=== PATIENT | female | born 1965 | race Caucasian/White ===

== ENCOUNTER → 2016-12-13 | Day surgery (SDC) | payer BC ==
[~2016-12-13] MED LIST: ATOR20TA58 PO; DULO20CA PO; GLYB5TAB3 PO; HYDROmorphone 2 MG/ML VIAL IV PRN; IV RINGERS,LACTATED 1000ML 1,000 ML IV SCH; LIDOCAINE 1% 1 ML SYRINGE. ID PRN; LIDOCAINE 2% PF Vial for OR 5 ML VIAL. ONE; METF500T4 PO; MORPHINE SULFATE 2 MG/ML DISP.SYRIN. IV PRN; ONDANSETRON PF 4 MG/2 ML VIAL. IV PRN; OXCA150T3 PO; PROAIR HFA8.5 GM INH; PROCHLORPERAZINE 10 MG/2 ML VIAL. IV PRN; PROPOFOL 20 ML IV ONE; TRAZ300T2 PO; fentaNYL PF VIAL 100 MCG/2 ML VIAL IV PRN
[2016-12-13 09:10] VITALS: BP 120/75
--- NOTE | 2016-12-13 23:34 | CONS ---
DATE OF CONSULTATION: 12/13/2016 REFERRING PHYSICIAN: ____. HISTORY OF PRESENT ILLNESS: This is a 50-year-old female with past medical history significant for hyperlipidemia, diabetes, bipolar disorder, seen for screening colon exam. Bowel habits are regular without diarrhea or constipation. There has been no melena and/or hematochezia. FAMILY HISTORY: Unrevealing for colon polyps or colon cancer and she has not undergone previous colonoscopy and she is without additional complaints. PAST MEDICAL HISTORY: Diabetes, hyperlipidemia, and bipolar disorder. PAST SURGICAL HISTORY: Status post cholecystectomy, tonsillectomy, tubal ligation, ankle fracture. ALLERGIES: ERYTHROMYCIN. MEDICATIONS: Include albuterol, atorvastatin, Cymbalta, glyburide, metformin, Trileptal and trazodone. SOCIAL HISTORY: She is a social drinker, nonsmoker. FAMILY HISTORY: Significant for breast cancer with the paternal aunt, ____, diabetes with her father. REVIEW OF SYSTEMS: Per records. PHYSICAL EXAMINATION: GENERAL: Reveals a well-nourished, well-developed female. VITAL SIGNS: Temperature is 97, pulse 78, respirations 20. HEENT: Normocephalic and atraumatic head. Pupils and extraocular muscles not tested. Sclerae anicteric. NECK: Supple. LUNGS: Clear. CARDIOVASCULAR: Reveals S1, S2 without S3, S4 or appreciable murmur. ABDOMEN: Reveal soft abdomen, normal bowel sounds, without appreciable hepatosplenomegaly. EXTREMITIES: Reveals no cyanosis, clubbing or edema. IMPRESSION: Colorectal screening is warranted at this time. Risks and benefits of procedure including risk of perforation have been discussed. The patient is willing to proceed at this time. I would like to thank Dr. Chaney for allowing us to consult and participate in this patient's care. KADI CAIN MD DR: CATHI/leandro JOB#: [id number] / [id number]
== END | disposition home or self-care (01) ==
LOC: ENDOS 07:19
PROVIDERS: ATTEND Internal Medicine Gastroenterology
DX: Z12.11 Encounter for screening for malignant neoplasm of colon (principal); K64.0 First degree hemorrhoids; E11.9 Type 2 diabetes mellitus without complications; Z90.49 Acquired absence of other specified parts of digestive tract; Z98.51 Tubal ligation status; Z86.39 Personal history of other endocrine, nutritional and metabolic disease; Z88.1 Allergy status to other antibiotic agents
CPT/HCPCS: 45378; 82962; J2704

== ENCOUNTER 2017-03-27 12:47 | Emergency (ER) | payer BC ==
[~2017-03-27] VITALS: Ht 152.4 cm; Wt 113.4 kg
[~2017-03-27 12:47] MED LIST changes: -HYDROmorphone 2 MG/ML VIAL IV PRN; -IV RINGERS,LACTATED 1000ML 1,000 ML IV SCH; -LIDOCAINE 1% 1 ML SYRINGE. ID PRN; -LIDOCAINE 2% PF Vial for OR 5 ML VIAL. ONE; -MORPHINE SULFATE 2 MG/ML DISP.SYRIN. IV PRN; -ONDANSETRON PF 4 MG/2 ML VIAL. IV PRN; -PROCHLORPERAZINE 10 MG/2 ML VIAL. IV PRN; -PROPOFOL 20 ML IV ONE; -fentaNYL PF VIAL 100 MCG/2 ML VIAL IV PRN
--- NOTE | 2017-03-27 13:50 | EKG ---
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
[2017-03-27 13:55] LABS: BASO # 0.1 x10^3/uL (0.0-0.2); BASO % 1 % (0-3); EOS % 3 % (0-3); HEMATOCRIT 36.7 % (36.0-47.0); HEMOGLOBIN 12.2 g/dL (12.0-15.5); LYMPH # 4.3 x10^3/uL (1.0-4.8); LYMPH % 45 % (24-48); MEAN CORPUSCULAR HEMOGLOBIN 33 pg (25-35); MEAN CORPUSCULAR HGB CONC 33 g/dL (31-37); MEAN CORPUSCULAR VOLUME 99 fL (79-100); MONO % 5 % (0-9); NEUT % 47 % (31-73); PLATELET COUNT 282 x10^3/uL (140-400); RED BLOOD COUNT 3.72 x10^6/uL (3.50-5.40); RED CELL DISTRIBUTION WIDTH 13.6 % (11.5-14.5); WHITE BLOOD COUNT 9.4 x10^3/uL (4.0-11.0)
[2017-03-27 14:00] LABS: CALCIUM 8.8 mg/dL (8.5-10.1); CREATININE 0.8 mg/dL (0.6-1.0); GFR 75.6; POTASSIUM 3.9 mmol/L (3.5-5.1)
--- NOTE | 2017-03-27 14:04 | RAD ---
EXAM: Chest 2 views. HISTORY: Dyspnea and dizziness. COMPARISON: None. FINDINGS: Frontal and lateral views of the chest are obtained. There are no confluent infiltrates. There is no pneumothorax or pleural effusion. The heart is not enlarged. Cholecystectomy clips are noted. IMPRESSION: 1. No confluent infiltrates.
[2017-03-27] MEDS ORDERED: ALBUTEROL SULFATE 2.5 MG/3 ML NEBU. NEB ONE (14:45)
[2017-03-27] MEDS ORDERED: IV NORMAL SALINE 1000ML BAG 1,000 ML IV ONE (14:45)
--- NOTE | 2017-03-27 14:50 | PHYS DOC ---
Past Medical History Past Medical History: Asthma, Bipolar, Diabetes-Type II, Glaucoma, Hypertension , Other Additional Past Medical Histor: GASTROPARESIS Past Surgical History: Cholecystectomy, Tubal ligation, Other Additional Past Surgical Histo: CRYO SURG,D&C,THERMOABLATION Alcohol Use: None Drug Use: None Adult General Chief Complaint Chief Complaint: SHORTNESS OF BREATH [facility] HPI Patient is a 51 year old female presents with complaints of chest heaviness, shortness of air, dizziness that has been going on for a couple weeks. The chest heaviness is described as being diffuse and does not radiate. It hasn't been any nausea, diaphoresis, vomiting, abdominal pain, neck pain, back pain associated with it. No sick contacts, no recent travel. No fevers, no chills, no rashes. Patient denies any swelling of her legs or new pain in her legs. Coug , occasional and nonproductive Review of Systems Review of Systems Constitutional: Denies fever or chills [] HENT: Denies nasal congestion or sore throat [] Respiratory: Yes cough or shortness of breath [] Cardiovascular: No additional information not addressed in HPI [] GI: Denies abdominal pain, nausea, vomiting, bloody stools or diarrhea [] : Denies dysuria or hematuria [] Musculoskeletal: Denies back pain or joint pain [] Integument: Denies rash or skin lesions [] Neurologic: Denies headache, focal weakness or sensory changes [] All systems reviewed and found to be negative unless otherwise stated Current Medications Current Medications Current Medications Medications (Trade) Dose Ordered Sig/Karol Start Time Stop Time Status Last Admin Dose Admin Albuterol Sulfate (Ventolin Neb Soln) 2.5 mg 1X ONCE 03/27/17 14:45 03/27/17 14:46 DC 03/27/17 15:02 2.5 MG Sodium Chloride 1,000 ml @ 1,000 mls/hr 1X ONCE 03/27/17 14:45 03/27/17 15:44 03/27/17 15:08 1,000 MLS/HR Allergies Allergies Allergies Coded Allergies Type Severity Reaction Last Updated Verified erythromycin base Allergy Intermediate 12/13/16 No Physical Exam Physical Exam Constitutional: Well developed, well nourished, no acute distress, non-toxic appearance. [] HENT: Normocephalic, atraumatic,, oropharynx dry, no oral exudates, nose normal. [] Eyes: EOMI, conjunctiva normal, no discharge. [] Neck: Normal range of motion, no tenderness, supple, no stridor. No JVD Cardiovascular:Heart rate regular rhythm, no murmur, equal pulses, normal perfusion Lungs & Thorax: Bilateral breath sounds clear to auscultation, no tachypnea Abdomen: Bowel sounds normal, soft, no tenderness, no masses, no pulsatile masses. [] Skin: Warm, dry, no erythema, no rash. [] Back: No tenderness, no CVA tenderness. [] Extremities: No tenderness, no cyanosis, no clubbing, ROM intact, no edema. No clinical signs of DVT Neurologic: Alert and oriented X 3, normal motor function, no focal deficits noted. [] Psychologic: Affect normal, judgement normal, mood normal. [] Current Patient Data Vital Signs Vital Signs Date Time Temp Pulse Resp B/P (MAP) Pulse Ox O2 Delivery O2 Flow Rate FiO2 03/27/17 15:05 73 24 146/67 (93) 100 03/27/17 15:03 Room Air 03/27/17 12:55 98.1 98.1 Lab Values Laboratory Tests Test 03/27/17 13:04 03/27/17 13:05 Glucose (Fingerstick) 314 mg/dL (70-99) H White Blood Count 9.4 x10^3/uL (4.0-11.0) Red Blood Count 3.72 x10^6/uL (3.50-5.40) Hemoglobin 12.2 g/dL (12.0-15.5) Hematocrit 36.7 % (36.0-47.0) Mean Corpuscular Volume 99 fL (79-100) Mean Corpuscular Hemoglobin 33 pg (25-35) Mean Corpuscular Hemoglobin Concent 33 g/dL (31-37) Red Cell Distribution Width 13.6 % (11.5-14.5) Platelet Count 282 x10^3/uL (140-400) Neutrophils (%) (Auto) 47 % (31-73) Lymphocytes (%) (Auto) 45 % (24-48) Monocytes (%) (Auto) 5 % (0-9) Eosinophils (%) (Auto) 3 % (0-3) Basophils (%) (Auto) 1 % (0-3) Neutrophils # (Auto) 4.4 x10^3uL (1.8-7.7) Lymphocytes # (Auto) 4.3 x10^3/uL (1.0-4.8) Monocytes # (Auto) 0.4 x10^3/uL (0.0-1.1) Eosinophils # (Auto) 0.3 x10^3/uL (0.0-0.7) Basophils # (Auto) 0.1 x10^3/uL (0.0-0.2) D-Dimer (Veronica) < 0.27 ug/mlFEU Sodium Level 138 mmol/L (136-145) Potassium Level 3.9 mmol/L (3.5-5.1) Chloride Level 101 mmol/L (98-107) Carbon Dioxide Level 28 mmol/L (21-32) Anion Gap 9 (6-14) Blood Urea Nitrogen 11 mg/dL (7-20) Creatinine 0.8 mg/dL (0.6-1.0) Estimated GFR (Cockcroft-Gault) 75.6 Glucose Level 316 mg/dL (70-99) H Calcium Level 8.8 mg/dL (8.5-10.1) Troponin I Quantitative < 0.017 ng/mL (0.000-0.055) Laboratory Tests 03/27/17 13:05 Laboratory Tests 03/27/17 13:05 EKG EKG 1304 sinus rhythm, 75, no STEMI[] Radiology/Procedures Radiology/Procedures no acute findings[] Course & Med Decision Making Course & Med Decision Making Pertinent Labs and Imaging studies reviewed. (See chart for details) 1450 patient and room in no distress, sleeping comfortably, no tachypnea [] Dragon Disclaimer Dragon Disclaimer This electronic medical record was generated, in whole or in part, using a voice recognition dictation system. Departure Departure Impression: Primary Impression: Dizziness Additional Impressions: Dehydration Hyperglycemia Nonspecific chest pain Disposition: HOME, SELF-CARE Condition: IMPROVED Referrals: ELEAZAR LEO MD (PCP) Please follow-up with your PCP in 2 days for recheck and reevaluation and discuss possible need for adjustment of to her diabetes medication as well as further testing. Patient Instructions: Chest Pain (Nonspecific), Hqeg-[id number], Dehydration, Adult, Ceta-ep-Ttfv, Dizziness, Gsad-mm-Kbos, Hyperglycemia, Hqju-ce-Dzqd Problem Qualifiers Robert BUTTERFIELD MD Mar 27, 2017 14:50
[2017-03-27 16:22] VITALS: BP 153/74
== END 2017-03-27 16:22 | disposition home or self-care (01) ==
LOC: ER 12:47
DX: E86.0 Dehydration (principal); R07.89 Other chest pain; E11.65 Type 2 diabetes mellitus with hyperglycemia; E11.39 Type 2 diabetes mellitus with other diabetic ophthalmic complication; H40.9 Unspecified glaucoma; I10 Essential (primary) hypertension; J45.909 Unspecified asthma, uncomplicated; F31.9 Bipolar disorder, unspecified; Z88.1 Allergy status to other antibiotic agents
CPT/HCPCS: 36415; 71020; 80048; 82962; 84484; 85025; 85379; 93005; 94250; 94640; 96360; 99285; J7030; J7613

== ENCOUNTER → 2018-01-16 | Outpatient (CLI) | payer BC | END | disposition home or self-care (01) | LOC: KCIC MRI 09:00 | DX: G31.84 Mild cognitive impairment of uncertain or unknown etiology (principal); I10 Essential (primary) hypertension; E11.9 Type 2 diabetes mellitus without complications; Z86.39 Personal history of other endocrine, nutritional and metabolic disease; Z90.49 Acquired absence of other specified parts of digestive tract | CPT/HCPCS: 70551 ==

== ENCOUNTER 2018-03-17 16:21 | Emergency (ER) | payer BC ==
[~2018-03-17] VITALS: Ht 152.4 cm; Wt 117.0 kg
[~2018-03-17 16:21] MED LIST changes: +METF500T16 PO; -METF500T4 PO
[2018-03-17 16:37] VITALS: BP 174/87
[2018-03-17 17:15] LABS: BASO # 0.1 x10^3/uL (0.0-0.2); BASO % 1 % (0-3); EOS # 0.3 x10^3/uL (0.0-0.7); EOS % 3 % (0-3); HEMOGLOBIN 13.6 g/dL (12.0-15.5); LYMPH # 4.2 x10^3/uL (1.0-4.8); LYMPH % 46 % (24-48); MEAN CORPUSCULAR HEMOGLOBIN 33 pg (25-35); MEAN CORPUSCULAR HGB CONC 34 g/dL (31-37); MEAN CORPUSCULAR VOLUME 95 fL (79-100); MONO # 0.6 x10^3/uL (0.0-1.1); MONO % 7 % (0-9); NEUT % 44 % (31-73); PLATELET COUNT 304 x10^3/uL (140-400); RED BLOOD COUNT 4.19 x10^6/uL (3.50-5.40); RED CELL DISTRIBUTION WIDTH 13.8 % (11.5-14.5); WHITE BLOOD COUNT 9.1 x10^3/uL (4.0-11.0)
[2018-03-17] MEDS ORDERED: IV NORMAL SALINE 1000ML BAG 1,000 ML IV ONE ×2 (17:15→18:00)
[2018-03-17 17:40] LABS: CALCIUM 9.2 mg/dL (8.5-10.1); CREATININE 0.8 mg/dL (0.6-1.0); GFR 75.3
[2018-03-17 17:46] LABS: ALBUMIN 3.6 g/dL (3.4-5.0); ALBUMIN/GLOBULIN RATIO 0.9 (1.0-1.7); TOTAL BILIRUBIN 0.2 mg/dL (0.2-1.0); TOTAL PROTEIN 7.8 g/dL (6.4-8.2)
[2018-03-17] MEDS ORDERED: INSULIN REGULAR 100 UNIT/ML 3ML VIAL. IV ONE (18:00)
[2018-03-17] MEDS ORDERED: ONDANSETRON PF 4 MG/2 ML VIAL. IV ONE (18:15)
--- NOTE | 2018-03-17 19:13 | PHYS DOC ---
Past Medical History Past Medical History: Asthma, Bipolar, Diabetes-Type II, Glaucoma, Hypertension , Other Additional Past Medical Histor: GASTROPARESIS, SLEEP APNEA Past Surgical History: Cholecystectomy, Tonsillectomy, Tubal ligation, Other Additional Past Surgical Histo: CRYO SURG,D&C,THERMOABLATION Alcohol Use: None Drug Use: None Adult General Chief Complaint Chief Complaint: HYPERGLYCEMIA HPI HPI Patient is a 52 year old female who presents with hyperglycemia. The patient states that she has also had some confusion and memory issues. The patient has been seen by Dr. Siddiqui for neurology. The patient does have a history of bipolar disorder as well. The patient states that she has been taking most of her medications. She states that her blood sugars have routinely been running in the 300's. She thinks that might be what is causing her confusion today. She denies loss of consciousness, headaches or vision changes. She states that Dr. Siddiqui placed her on amphetamines to help with her daytime sleepiness but she has been very sleepy today. Review of Systems Review of Systems Constitutional: Denies fever or chills [] Eyes: Denies change in visual acuity, redness, or eye pain [] HENT: Denies nasal congestion or sore throat [] Respiratory: Denies cough or shortness of breath [] Cardiovascular: No additional information not addressed in HPI [] GI: Denies abdominal pain, nausea, vomiting, bloody stools or diarrhea [] : Denies dysuria or hematuria [] Musculoskeletal: Denies back pain or joint pain [] Integument: Denies rash or skin lesions [] Neurologic: See history of present illness Endocrine: Denies polyuria or polydipsia [] All other systems were reviewed and found to be within normal limits, except as documented in this note. Current Medications Current Medications Current Medications Medications (Trade) Dose Ordered Sig/Karol Start Time Stop Time Status Last Admin Dose Admin Insulin Human Regular (HumuLIN R VIAL) 10 unit 1X ONCE 03/17/18 18:00 03/17/18 18:01 DC 03/17/18 18:15 10 UNIT Ondansetron HCl (Zofran) 4 mg 1X ONCE 03/17/18 18:15 03/17/18 18:16 DC 03/17/18 18:21 4 MG Sodium Chloride 1,000 ml @ 1,000 mls/hr 1X ONCE 03/17/18 18:00 03/17/18 18:59 DC 03/17/18 18:21 1,000 MLS/HR Allergies Allergies Allergies Coded Allergies Type Severity Reaction Last Updated Verified erythromycin base Allergy Intermediate 12/13/16 No Physical Exam Physical Exam Constitutional: Well developed, well nourished, no acute distress, non-toxic appearance. [] HENT: Normocephalic, atraumatic, bilateral external ears normal, oropharynx moist, no oral exudates, nose normal. [] Eyes: PERRLA, EOMI, conjunctiva normal, no discharge. [] Neck: Normal range of motion, no tenderness, supple, no stridor. [] Cardiovascular:Heart rate regular rhythm, no murmur [] Lungs & Thorax: Bilateral breath sounds clear to auscultation [] Abdomen: Bowel sounds normal, soft, no tenderness, no masses, no pulsatile masses. [] Skin: Warm, dry, no erythema, no rash. [] Back: No tenderness, no CVA tenderness. [] Extremities: No tenderness, no cyanosis, no clubbing, ROM intact, no edema. [] Neurologic: Alert and oriented X 3, normal motor function, normal sensory function, no focal deficits noted, cranial nerves II through XII are grossly intact. [] Psychologic: Affect is flat, judgement normal, mood tearful[] Current Patient Data Vital Signs Vital Signs Date Time Temp Pulse Resp B/P (MAP) Pulse Ox O2 Delivery O2 Flow Rate FiO2 03/17/18 16:37 98.1 88 18 174/87 (116) 97 Room Air 98.1 Lab Values Laboratory Tests Test 03/17/18 16:32 03/17/18 17:02 03/17/18 18:57 Glucose (Fingerstick) 364 mg/dL (70-99) H 151 mg/dL (70-99) H White Blood Count 9.1 x10^3/uL (4.0-11.0) Red Blood Count 4.19 x10^6/uL (3.50-5.40) Hemoglobin 13.6 g/dL (12.0-15.5) Hematocrit 40.0 % (36.0-47.0) Mean Corpuscular Volume 95 fL (79-100) Mean Corpuscular Hemoglobin 33 pg (25-35) Mean Corpuscular Hemoglobin Concent 34 g/dL (31-37) Red Cell Distribution Width 13.8 % (11.5-14.5) Platelet Count 304 x10^3/uL (140-400) Neutrophils (%) (Auto) 44 % (31-73) Lymphocytes (%) (Auto) 46 % (24-48) Monocytes (%) (Auto) 7 % (0-9) Eosinophils (%) (Auto) 3 % (0-3) Basophils (%) (Auto) 1 % (0-3) Neutrophils # (Auto) 4.0 x10^3uL (1.8-7.7) Lymphocytes # (Auto) 4.2 x10^3/uL (1.0-4.8) Monocytes # (Auto) 0.6 x10^3/uL (0.0-1.1) Eosinophils # (Auto) 0.3 x10^3/uL (0.0-0.7) Basophils # (Auto) 0.1 x10^3/uL (0.0-0.2) Sodium Level 137 mmol/L (136-145) Potassium Level 4.0 mmol/L (3.5-5.1) Chloride Level 98 mmol/L (98-107) Carbon Dioxide Level 30 mmol/L (21-32) Anion Gap 9 (6-14) Blood Urea Nitrogen 12 mg/dL (7-20) Creatinine 0.8 mg/dL (0.6-1.0) Estimated GFR (Cockcroft-Gault) 75.3 BUN/Creatinine Ratio 15 (6-20) Glucose Level 387 mg/dL (70-99) H Calcium Level 9.2 mg/dL (8.5-10.1) Total Bilirubin 0.2 mg/dL (0.2-1.0) Aspartate Amino Transferase (AST) 41 U/L (15-37) H Alanine Aminotransferase (ALT) 52 U/L (14-59) Alkaline Phosphatase 131 U/L (46-116) H Total Protein 7.8 g/dL (6.4-8.2) Albumin 3.6 g/dL (3.4-5.0) Albumin/Globulin Ratio 0.9 (1.0-1.7) L Laboratory Tests 03/17/18 17:02 Laboratory Tests 03/17/18 17:02 EKG EKG [] Radiology/Procedures Radiology/Procedures [] Course & Med Decision Making Course & Med Decision Making Pertinent Labs and Imaging studies reviewed. (See chart for details) [] Dragon Disclaimer Dragon Disclaimer This electronic medical record was generated, in whole or in part, using a voice recognition dictation system. Departure Departure Impression: Primary Impression: Hyperglycemia Disposition: HOME, SELF-CARE Condition: STABLE Referrals: ELEAZAR LEO MD (PCP) Patient Instructions: Hyperglycemia, Rwff-zv-Bgny Additional Instructions: Take your at-home medications as directed. Follow-up with your primary care provider within 2 days for recheck. Return to the emergency department if worsening. ANDREW PEDROZA APRN Mar 17, 2018 19:13
== END 2018-03-17 20:58 | disposition home or self-care (01) ==
LOC: ER 16:21
DX: E11.65 Type 2 diabetes mellitus with hyperglycemia (principal); R41.0 Disorientation, unspecified; F31.9 Bipolar disorder, unspecified; J45.909 Unspecified asthma, uncomplicated; E11.39 Type 2 diabetes mellitus with other diabetic ophthalmic complication; H40.9 Unspecified glaucoma; E11.43 Type 2 diabetes mellitus with diabetic autonomic (poly)neuropathy; K31.84 Gastroparesis; Z88.1 Allergy status to other antibiotic agents
CPT/HCPCS: 36415; 80053; 82962; 85025; 96361; 96374; 96375; 99284; J1815; J2405; J7030

== ENCOUNTER → 2018-08-11 | Outpatient (CLI) | payer BC ==
[~2018-08-11] MED LIST changes: +ALBU2.5V8 INH; -PROAIR HFA8.5 GM INH; +ZOLPIDEM 5 MG TABLET. PO ONE
--- NOTE | 2018-08-13 15:19 | SLEEP ---
DATE OF STUDY: 08/11/2018 OBJECTIVE: The patient is a 52-year-old female, previously study 07/23/2018. She is here for a CPAP titration study. The apnea-hypopnea index on the prior study was 51 events per hour of sleep. Height 5 feet 0 inches, weight 253 pounds, body mass index 50. [place] sleep score 22. INTERPRETATION: Sleep architecture is characterized by sleep efficiency of 82% across 8.3 hours of recording time. Stage volumes are reduced for slow-wave and REM sleep. Sleep onset latency is 2.5 minutes. Respiratory monitoring continues to show a total of 180 events for an apnea-hypopnea index of 26.3 events per hour of sleep. The minimum oxygen saturation is 82%. This is a CPAP titration study and on a setting of 12 cm, the apnea-hypopnea index was still 10.3 events per hour of sleep. BiPAP titration was carried out to a setting of 30/25, but there was paradoxical worsening of the sleep apnea on these higher settings. Periodic limb movements of sleep occur at the rate of 21 events per hour sleep, 3 events per hour of sleep associated with arousal. No significant cardiac arrhythmias are observed. CPAP titration study shows continued apnea despite treatment using 12 cm of CPAP, Respironics Wisp nasal mask, small size. RECOMMENDATIONS: 1. I will attempt to set the patient up for CPAP setting. 2. The patient should pursue weight loss and avoid sedatives, alcohol, in the supine position. Thank you for letting us help with the patient's care. LAINE SOLIZ MD DR: MAYLIN/leandro JOB#: [id number] / [id number] ELEAZAR Gorman MD
== END | disposition home or self-care (01) ==
LOC: RT 18:57
PROVIDERS: ATTEND Family Medicine
DX: G47.33 Obstructive sleep apnea (adult) (pediatric) (principal)
CPT/HCPCS: 95811

== ENCOUNTER 2018-09-01 22:42 | Inpatient (IN) | payer BC ==
[~2018-09-01] VITALS: Ht 152.4 cm; Wt 114.8 kg
[~2018-09-01 22:42] MED LIST changes: -ZOLPIDEM 5 MG TABLET. PO ONE
--- NOTE | 2018-09-01 23:21 | PHYS DOC ---
Past Medical History Past Medical History: Asthma, Bipolar, Diabetes-Type II, Glaucoma, High Cholesterol, Hypertension, Other Additional Past Medical Histor: GASTROPARESIS, SLEEP APNEA (DAREN DELANEY APRN) Past Surgical History: Cholecystectomy, Tonsillectomy, Tubal ligation, Other Additional Past Surgical Histo: CRYO SURG,D&C,THERMOABLATION (DAREN DELANEY APRN) Alcohol Use: None Drug Use: None (DAREN DELANEY APRN) Adult General Chief Complaint Chief Complaint: CHEST PAIN HPI HPI Patient is a 52 year old female with history of diabetes type 2, hypertension, high cholesterol, who presents to the ED today complaining of a tearing 7/10 mid left sided chest pain radiating to her left shoulder and jaw that began this evening while she was on her computer. Patient denies anything specifically exacerbating or making the pain better. She states she already took 4 tablets of 81 mg of aspirin with no relief. She states she's also had chills on and off since this morning. Patient denies any fever coughing or congestion. PCP (DAREN DELANEY APRN) Review of Systems Review of Systems Constitutional: Reports chills. Denies fever Eyes: Denies change in visual acuity, redness, or eye pain [] HENT: Denies nasal congestion or sore throat [] Respiratory: Denies cough or shortness of breath [] Cardiovascular: Reports chest pain radiating to the jaw GI: Denies abdominal pain, nausea, vomiting, bloody stools or diarrhea [] : Denies dysuria or hematuria [] Musculoskeletal: Denies back pain or joint pain [] Integument: Denies rash or skin lesions [] Neurologic: Denies headache, focal weakness or sensory changes [] All other systems were reviewed and found to be within normal limits, except as documented in this note. (DAREN DELANEY APRN) Current Medications Current Medications Current Medications Medications (Trade) Dose Ordered Sig/Karol Start Time Stop Time Status Last Admin Dose Admin Nitroglycerin (Nitrostat) 0.4 mg PRN Q5MIN PRN 09/01/18 23:15 09/02/18 23:14 09/02/18 00:34 0.4 MG (KEERTHI RUANO DO) Allergies Allergies Allergies Coded Allergies Type Severity Reaction Last Updated Verified erythromycin base Allergy Intermediate 12/13/16 No insulin aspart Allergy Intermediate 09/01/18 Yes insulin aspart protamine human Allergy Intermediate 09/01/18 Yes lithium Allergy Intermediate 09/01/18 Yes (KEERTHI RUANO DO) Physical Exam Physical Exam Constitutional: Well developed, well nourished, no acute distress, non-toxic appearance. [] HENT: Normocephalic, atraumatic, bilateral external ears normal, oropharynx moist, no oral exudates, nose normal. [] Eyes: PERRLA, EOMI, conjunctiva normal, no discharge. [] Neck: Normal range of motion, no tenderness, supple, no stridor. [] Cardiovascular:Heart rate regular rhythm, no murmur [] Lungs & Thorax: Bilateral breath sounds clear to auscultation [] Abdomen: Bowel sounds normal, soft, no tenderness, no masses, no pulsatile masses. [] Skin: Warm, dry, no erythema, no rash. [] Back: No tenderness, no CVA tenderness. [] Extremities: No tenderness, no cyanosis, no clubbing, ROM intact, no edema. [] Neurologic: Alert and oriented X 3, normal motor function, normal sensory function, no focal deficits noted. [] Psychologic: Affect normal, judgement normal, mood normal. [] (DAREN DELANEY APRN) Current Patient Data Vital Signs Vital Signs Date Time Temp Pulse Resp B/P (MAP) Pulse Ox O2 Delivery O2 Flow Rate FiO2 09/01/18 23:41 73 178/81 09/01/18 23:37 Room Air 09/01/18 22:50 97.9 16 99 97.9 (KEERTHI RUANO DO) Lab Values Laboratory Tests Test 09/01/18 23:10 09/01/18 23:35 White Blood Count 13.0 x10^3/uL (4.0-11.0) H Red Blood Count 4.06 x10^6/uL (3.50-5.40) Hemoglobin 13.1 g/dL (12.0-15.5) Hematocrit 38.4 % (36.0-47.0) Mean Corpuscular Volume 94 fL (79-100) Mean Corpuscular Hemoglobin 32 pg (25-35) Mean Corpuscular Hemoglobin Concent 34 g/dL (31-37) Red Cell Distribution Width 13.2 % (11.5-14.5) Platelet Count 357 x10^3/uL (140-400) Neutrophils (%) (Auto) 54 % (31-73) Lymphocytes (%) (Auto) 36 % (24-48) Monocytes (%) (Auto) 7 % (0-9) Eosinophils (%) (Auto) 2 % (0-3) Basophils (%) (Auto) 1 % (0-3) Neutrophils # (Auto) 7.0 x10^3uL (1.8-7.7) Lymphocytes # (Auto) 4.7 x10^3/uL (1.0-4.8) Monocytes # (Auto) 0.9 x10^3/uL (0.0-1.1) Eosinophils # (Auto) 0.3 x10^3/uL (0.0-0.7) Basophils # (Auto) 0.1 x10^3/uL (0.0-0.2) Prothrombin Time 13.3 SEC (11.7-14.0) Prothrombin Time INR 1.0 (0.8-1.1) D-Dimer (Veronica) < 0.27 ug/mlFEU Sodium Level 128 mmol/L (136-145) L Potassium Level 4.0 mmol/L (3.5-5.1) Chloride Level 89 mmol/L (98-107) L Carbon Dioxide Level 33 mmol/L (21-32) H Anion Gap 6 (6-14) Blood Urea Nitrogen 16 mg/dL (7-20) Creatinine 0.8 mg/dL (0.6-1.0) Estimated GFR (Cockcroft-Gault) 75.3 BUN/Creatinine Ratio 20 (6-20) Glucose Level 160 mg/dL (70-99) H Calcium Level 9.1 mg/dL (8.5-10.1) Magnesium Level 1.7 mg/dL (1.8-2.4) L Total Bilirubin 0.2 mg/dL (0.2-1.0) Aspartate Amino Transferase (AST) 28 U/L (15-37) Alanine Aminotransferase (ALT) 46 U/L (14-59) Alkaline Phosphatase 117 U/L (46-116) H Creatine Kinase 223 U/L (26-192) H Creatine Kinase MB (Mass) 1.2 ng/mL (0.0-3.6) Creatine Kinase MB Relative Index 0.5 % (0-4) Troponin I Quantitative < 0.017 ng/mL (0.000-0.055) DZ-Mik-U-Type Natriuretic Peptide 30 pg/mL (0-124) Total Protein 8.1 g/dL (6.4-8.2) Albumin 3.7 g/dL (3.4-5.0) Albumin/Globulin Ratio 0.8 (1.0-1.7) L Thyroid Stimulating Hormone (TSH) 3.862 uIU/mL (0.358-3.74) H Urine Collection Type Void Urine Color Yellow Urine Clarity Clear Urine pH 7.0 Urine Specific [place] 1.015 Urine Protein Negative mg/dL (NEG-TRACE) Urine Glucose (UA) Negative mg/dL (NEG) Urine Ketones (Stick) Negative mg/dL (NEG) Urine Blood Negative (NEG) Urine Nitrite Negative (NEG) Urine Bilirubin Negative (NEG) Urine Urobilinogen Dipstick 0.2 mg/dL (0.2 mg/dL) Urine Leukocyte Esterase Negative (NEG) Urine RBC Occ /HPF (0-2) Urine WBC Occ /HPF (0-4) Urine Squamous Epithelial Cells Occ /LPF Urine Bacteria 0 /HPF (0-FEW) Urine Opiates Screen Neg (NEG) Urine Methadone Screen Neg (NEG) Urine Barbiturates Neg (NEG) Urine Phencyclidine Screen Neg (NEG) Urine Amphetamine/Methamphetamine Neg (NEG) Urine Benzodiazepines Screen Neg (NEG) Urine Cocaine Screen Neg (NEG) Urine Cannabinoids Screen Neg (NEG) Urine Ethyl Alcohol Neg (NEG) Influenza Type A Antigen Negative (NEGATIVE) Influenza Type B Antigen Negative (NEGATIVE) Laboratory Tests 09/01/18 23:10 Laboratory Tests 09/01/18 23:10 (KEERTHI RUANO DO) Lab Values Laboratory Tests Test 09/01/18 23:10 White Blood Count 13.0 x10^3/uL (4.0-11.0) H Red Blood Count 4.06 x10^6/uL (3.50-5.40) Hemoglobin 13.1 g/dL (12.0-15.5) Hematocrit 38.4 % (36.0-47.0) Mean Corpuscular Volume 94 fL (79-100) Mean Corpuscular Hemoglobin 32 pg (25-35) Mean Corpuscular Hemoglobin Concent 34 g/dL (31-37) Red Cell Distribution Width 13.2 % (11.5-14.5) Platelet Count 357 x10^3/uL (140-400) Neutrophils (%) (Auto) 54 % (31-73) Lymphocytes (%) (Auto) 36 % (24-48) Monocytes (%) (Auto) 7 % (0-9) Eosinophils (%) (Auto) 2 % (0-3) Basophils (%) (Auto) 1 % (0-3) Neutrophils # (Auto) 7.0 x10^3uL (1.8-7.7) Lymphocytes # (Auto) 4.7 x10^3/uL (1.0-4.8) Monocytes # (Auto) 0.9 x10^3/uL (0.0-1.1) Eosinophils # (Auto) 0.3 x10^3/uL (0.0-0.7) Basophils # (Auto) 0.1 x10^3/uL (0.0-0.2) Prothrombin Time 13.3 SEC (11.7-14.0) Prothrombin Time INR 1.0 (0.8-1.1) D-Dimer (Veronica) < 0.27 ug/mlFEU Sodium Level 128 mmol/L (136-145) L Potassium Level 4.0 mmol/L (3.5-5.1) Chloride Level 89 mmol/L (98-107) L Carbon Dioxide Level 33 mmol/L (21-32) H Anion Gap 6 (6-14) Blood Urea Nitrogen 16 mg/dL (7-20) Creatinine 0.8 mg/dL (0.6-1.0) Estimated GFR (Cockcroft-Gault) 75.3 BUN/Creatinine Ratio 20 (6-20) Glucose Level 160 mg/dL (70-99) H Calcium Level 9.1 mg/dL (8.5-10.1) Magnesium Level 1.7 mg/dL (1.8-2.4) L Total Bilirubin 0.2 mg/dL (0.2-1.0) Aspartate Amino Transferase (AST) 28 U/L (15-37) Alanine Aminotransferase (ALT) 46 U/L (14-59) Alkaline Phosphatase 117 U/L (46-116) H Creatine Kinase 223 U/L (26-192) H Creatine Kinase MB (Mass) 1.2 ng/mL (0.0-3.6) Creatine Kinase MB Relative Index 0.5 % (0-4) Troponin I Quantitative < 0.017 ng/mL (0.000-0.055) GV-Let-C-Type Natriuretic Peptide 30 pg/mL (0-124) Total Protein 8.1 g/dL (6.4-8.2) Albumin 3.7 g/dL (3.4-5.0) Albumin/Globulin Ratio 0.8 (1.0-1.7) L Thyroid Stimulating Hormone (TSH) 3.862 uIU/mL (0.358-3.74) H Laboratory Tests 09/01/18 23:10 Laboratory Tests 09/01/18 23:10 (DAREN DELANEY APRN) EKG EKG [address] Ruano sinus rhythm heart rate 69 no STEMI (DAREN DELANEY APRN) Radiology/Procedures Radiology/Procedures [] (DAREN DELANEY APRN) Course & Med Decision Making Course & Med Decision Making Pertinent Labs and Imaging studies reviewed. (See chart for details) This is a 52-year-old female patient presented to the ED today with chest pain radiating to her jaw that began this evening. Patient has already taken 4 tablets of 81 mg of aspirin. Continues to have chest pain. Nitroglycerin ordered in the ED. Blood pressure 192/90 with heart rates in the 60s. Heart score 3 CBC with a WBC of 13, sodium 128, chloride 89, bicarbonate 33, glucose 160, anion gap is normal. Troponin is normal. D-dimer is normal. Patient started on normal saline 2 L ordered. She is alert oriented 3 despite hyponatremia. She states she restricts her sodium intake. Patient was admitted under . Dr. Ruano will give him report in AM Routine consult placed for political research scientist Routine consult placed for admission nurse coordinator (DAREN DELANEY APRN) Dragon Disclaimer Dragon Disclaimer This electronic medical record was generated, in whole or in part, using a voice recognition dictation system. (DAREN DELANEY APRN) Departure Departure Impression: Primary Impression: Chest pain Additional Impressions: Hyponatremia Hypertension Disposition: ADMITTED INPATIENT Condition: STABLE Referrals: ELEAZAR LEO MD (PCP) Attending Signature Attending Signature I have reviewed the PA/HOME HEALTH TRAVEL PT's note and plan of care. I was available for consultation as needed during the patient's visit in the emergency department. I agree with the clinical impression, plan, and disposition. (KEERTHI RUANO DO) Problem Qualifiers Primary Impression: Chest pain Chest pain type: unspecified Qualified Codes: R07.9 - Chest pain, unspecified Additional Impressions: Hypertension Hypertension type: unspecified Qualified Codes: I10 - Essential (primary) hypertension DAREN DELANEY APRN Sep 01, 2018 23:21 KEERTHI RUANO DO Sep 02, 2018 05:22
[2018-09-01 23:26] LABS: BASO # 0.1 x10^3/uL (0.0-0.2); BASO % 1 % (0-3); EOS # 0.3 x10^3/uL (0.0-0.7); EOS % 2 % (0-3); HEMATOCRIT 38.4 % (36.0-47.0); HEMOGLOBIN 13.1 g/dL (12.0-15.5); LYMPH # 4.7 x10^3/uL (1.0-4.8); LYMPH % 36 % (24-48); MEAN CORPUSCULAR HEMOGLOBIN 32 pg (25-35); MEAN CORPUSCULAR HGB CONC 34 g/dL (31-37); MEAN CORPUSCULAR VOLUME 94 fL (79-100); MONO # 0.9 x10^3/uL (0.0-1.1); MONO % 7 % (0-9); NEUT % 54 % (31-73); PLATELET COUNT 357 x10^3/uL (140-400); RED BLOOD COUNT 4.06 x10^6/uL (3.50-5.40); RED CELL DISTRIBUTION WIDTH 13.2 % (11.5-14.5)
[2018-09-01 23:41] LABS: CALCIUM 9.1 mg/dL (8.5-10.1); CREATININE 0.8 mg/dL (0.6-1.0); GFR 75.3
[2018-09-01] MEDS: NITROGLYCERIN SUBLINGUAL 0.4 MG BOTTLE OF 25. SL PRN (23:41)
[2018-09-01 23:43] LABS: PROTHROMBIN TIME PATIENT 13.3 SEC (11.7-14.0)
[2018-09-01 23:46] LABS: ALBUMIN 3.7 g/dL (3.4-5.0); ALBUMIN/GLOBULIN RATIO 0.8 (1.0-1.7); MAGNESIUM 1.7 mg/dL (1.8-2.4); TOTAL BILIRUBIN 0.2 mg/dL (0.2-1.0); TOTAL PROTEIN 8.1 g/dL (6.4-8.2)
[2018-09-01 23:50] LABS: D-DIMER < 0.27 ug/mlFEU (0.00-0.50)
[2018-09-01 23:50] LABS: BILIRUBIN,URINE NEGATIVE (NEG); CLARITY,URINE CLEAR; COLOR,URINE YELLOW; NITRITE,URINE NEGATIVE (NEG); PROTEIN,URINE NEGATIVE (NEG-TRACE); UROBILINOGEN,URINE 0.2 mg/dL (0.2 mg/dL)
[2018-09-01 23:58] LABS: BARBITURATES NEG (NEG); BENZODIAZEPINES NEG (NEG); CANNABINOIDS NEG (NEG); COCAINE NEG (NEG); METHADONE NEG (NEG); OPIATES NEG (NEG); PHENCYCLIDINE NEG (NEG)
[2018-09-02] VITALS (12 sets, daily range): BP systolic 128–167; BP diastolic 55–80
[2018-09-02] MEDS ORDERED: ONDANSETRON PF 4 MG/2 ML VIAL. IV PRN
[2018-09-02] MEDS ORDERED: ONDANSETRON PF 4 MG/2 ML VIAL. IV ONE
[2018-09-02] MEDS ORDERED: ACETAMINOPHEN 325 MG TABLET. PO PRN
[2018-09-02 00:02] LABS: AMPHETAMINE/METHAMPHETAMINE NEG (NEG); BACTERIA,URINE 0 /HPF (0-FEW); SQUAMOUS EPITHELIAL CELL,UR OCC /LPF
[2018-09-02 00:03] LABS: RBC,URINE OCC /HPF (0-2); WBC,URINE OCC /HPF (0-4)
[2018-09-02 00:09] LABS: INFLUENZA A PATIENT NEGATIVE (NEGATIVE); INFLUENZA B PATIENT NEGATIVE (NEGATIVE)
[2018-09-02] MEDS ORDERED: IV NORMAL SALINE 1000ML BAG 1,000 ML IV ONE ×3 (00:30)
[2018-09-02] MEDS: MORPHINE SULFATE 2 MG/ML VIAL. IV PRN ×3 (00:33→08:25)
[2018-09-02] MEDS: NITROGLYCERIN SUBLINGUAL 0.4 MG BOTTLE OF 25. SL PRN (00:34)
--- NOTE | 2018-09-02 01:14 | RAD ---
Single view chest dated 09/01/2018. Comparison made to 03/19/2017. CLINICAL INDICATION: Chest pain. FINDINGS: Single upright portable exam performed. Heart and mediastinal contours within normal limits. Lungs are clear without focal consolidation. Vascular interstitium within normal limits. No pleural effusion or pneumothorax. IMPRESSION: No acute radiographic abnormality. Electronically signed by: De Lam MD (09/02/2018 1:11 AM) [facility]
[2018-09-02] MEDS ORDERED: LABETALOL 20 MG/4 ML DISP.SYRIN. IVP PRN (03:15)
--- NOTE | 2018-09-02 03:45 | NUR ---
ADMISSION NOTE: Patient arrived to room 116 via gurney accompanied by ED staff. Bed low, locked, call light within reach. Patient able to transfer self with ease. Complains of slight dizziness. Tele monitor, BP cuff, and SPO2 monitor applied. Patient has no complaints at this time. Will continue to monitor.
[2018-09-02 04:04] LABS: BASO # 0.1 x10^3/uL (0.0-0.2); BASO % 1 % (0-3); EOS # 0.3 x10^3/uL (0.0-0.7); EOS % 3 % (0-3); HEMATOCRIT 36.2 % (36.0-47.0); LYMPH # 4.8 x10^3/uL (1.0-4.8); LYMPH % 40 % (24-48); MEAN CORPUSCULAR HEMOGLOBIN 32 pg (25-35); MEAN CORPUSCULAR HGB CONC 33 g/dL (31-37); MEAN CORPUSCULAR VOLUME 95 fL (79-100); MONO # 0.9 x10^3/uL (0.0-1.1); MONO % 7 % (0-9); NEUT # 5.9 x10^3uL (1.8-7.7); NEUT % 49 % (31-73); PLATELET COUNT 328 x10^3/uL (140-400); RED CELL DISTRIBUTION WIDTH 13.2 % (11.5-14.5)
[2018-09-02 04:31] LABS: CALCIUM 8.2 mg/dL (8.5-10.1); CREATININE 0.6 mg/dL (0.6-1.0); POTASSIUM 3.9 mmol/L (3.5-5.1)
[2018-09-02 04:55] LABS: CHOLESTEROL/HDL RATIO 3.2
[2018-09-02] MEDS ORDERED: GLIM4TAB2 PO (06:13)
[2018-09-02] MEDS ORDERED: LOSA1TAB19 PO (06:13)
[2018-09-02] MEDS ORDERED: ZIPR80CA2 PO ×2 (06:16→08:21)
[2018-09-02] MEDS ORDERED: ARMO150T4 PO (06:16)
--- NOTE | 2018-09-02 07:06 | EKG ---
[facility] [address] [place] [address] Test Date: 2018-09-01 Test Time: 22:52:36 Pat Name: ANDREAS LIAO Department: Room: 116 1 Gender: F [employer] Pattern Grader: : 1965 Requested By: DAREN DELANEY Order Number: [id number] Reading MD: Titi Ann MD Measurements Intervals [place] Rate: 69 P: 38 KS: 150 QRS: 16 QRSD: 78 T: 39 QT: 360 QTc: 387 Interpretive Statements SINUS RHYTHM Electronically Signed On 09-03-2018 11:33:43 [employer]PERSMITH HELPER by Titi Ann MD
--- NOTE | 2018-09-02 07:37 | NUR ---
CONSULTATION NOTIFICATION NOTE: Consult for Dr. Francisco, spoke with Jen. Cuello senior telecommunications specialist. Consult for Dr. Avalos, spoke with Gina. Carrasco senior telecommunications specialist.
[2018-09-02] MEDS ORDERED: FEXO180T81 PO (08:21)
[2018-09-02] MEDS ORDERED: GABA300C18 PO (08:21)
[2018-09-02] MEDS ORDERED: ATOR10TA60 PO (08:21)
[2018-09-02] MEDS ORDERED: ARMO250T4 PO (08:21)
[2018-09-02] MEDS ORDERED: METH-38 PO (08:21)
[2018-09-02] MEDS ORDERED: NPH,100V5 SQ (08:21)
--- NOTE | 2018-09-02 09:20 | PDOC2 ---
CARDIAC CONSULT DATE OF CONSULT Date of Consult DATE: 09/02/18 TIME: 09:12 REASON FOR CONSULT Reason for Consult: Chest pain REFERRING PHYSICIAN Referring Physician: Vanessa Russell APRN SOURCE Source: Chart review, Patient HISTORY OF PRESENT ILLNESS HISTORY OF PRESENT ILLNESS This is a 52 yo female who presented secondary to chest pain. Patient reports pain began yesterday even while she was on her computer. Located in her central chest. Describes as heaviness. Radiated up to her left jaw and to her right shoulder. also provides that she was complaining of pain in her back in the middle of her shoulder blades. Was nauseated and slightly dizzy. No SOA or diaphoresis, although she report feeling chilled yesterday evening. Had friend, who is an RN, check BP, was 184/87. Took 4 baby ASA. Rechecked BP was SBP was > 200. Friend recommended he to go to the ED for further evaluation and treatment. Has a history of hypertension. Was started back on Losartan/HCTZ last week. BP has been running his this past week. SBP generally 160 range. Denies any recent STEIN, chest pain with exertion, or PND. PAST MEDICAL HISTORY Cardiovascular: HTN, Hyperlipidemia Pulmonary: Asthma, Other (MARGARITA) CENTRAL NERVOUS SYSTEM: Periperal neuropathy GI: No pertinent hx Heme/Onc: No pertinent hx Hepatobiliary: Other (elevated LFTs) Psych: Anxiety, Bipolar, Depression, Other (PTSD) Musculoskeletal: Osteoarthritis Rheumatologic: No pertinent hx Infectious disease: No pertinent hx ENT: No pertinent hx Renal/: No pertinent hx Endocrine: Diabetes Dermatology: No pertinent hx PAST SURGICAL HISTORY Past Surgical History: Cholecystectomy, Tubal Ligation, Tonsillectomy FAMILY HISTORY Family History: Coronary Artery Disease (father with multiple stents- initially in his 50's. Mother also with stent ), Hypertension SOCIAL HISTORY Smoke: No ALCOHOL: none Drugs: None Lives: with Family CURRENT MEDICATIONS CURRENT MEDICATIONS Current Medications Medications (Trade) Dose Ordered Sig/Karol Route PRN Reason Start Time Stop Time Status Last Admin Dose Admin Nitroglycerin (Nitrostat) 0.4 mg PRN Q5MIN PRN SL CP RATING > 1/10 09/01/18 23:15 09/02/18 23:14 09/02/18 00:34 Ondansetron HCl (Zofran) 4 mg 1X ONCE IV 09/02/18 00:00 09/02/18 00:01 DC 09/01/18 23:41 Sodium Chloride 1,000 ml @ 1,000 mls/hr 1X ONCE IV 09/02/18 00:00 09/02/18 00:59 DC 09/02/18 00:33 Sodium Chloride 1,000 ml @ 1,000 mls/hr 1X ONCE IV 09/02/18 00:00 09/02/18 00:59 DC 09/02/18 01:28 Ondansetron HCl (Zofran) 4 mg PRN Q8HRS PRN IV NAUSEA/VOMITING 1ST CHOICE 09/02/18 00:00 09/02/18 23:59 09/02/18 04:55 Morphine Sulfate (Morphine Sulfate) 2 mg PRN Q2HR PRN IV SEVERE PAIN 09/02/18 00:00 09/02/18 23:59 09/02/18 08:25 Acetaminophen (Tylenol) 650 mg PRN Q4HRS PRN PO FEVER 09/02/18 00:00 09/02/18 23:59 09/02/18 03:11 Sodium Chloride 1,000 ml @ 125 mls/hr 1X ONCE IV 09/02/18 00:30 09/02/18 08:29 DC 09/02/18 04:26 ALLERGIES ALLERGIES: Coded Allergies: erythromycin base (Unverified Allergy, Intermediate, 12/13/16) insulin aspart (Verified Allergy, Intermediate, 09/01/18) insulin aspart protamine human (Verified Allergy, Intermediate, 09/01/18) lithium (Verified Allergy, Intermediate, 09/01/18) ROS Review of System 14 point ROS conducted with pertinent positives noted above in HPI. PHYSICAL EXAM General: Alert, Oriented X3, Cooperative, No acute distress HEENT: Atraumatic, Mucous membr. moist/pink Lungs: Clear to auscultation, Normal air movement Heart: Regular rate, Normal S1, Normal S2, No murmurs Abdomen: Soft, Other (obese ) Extremities: No edema, Normal pulses Skin: No significant lesion Neuro: Normal speech, Sensation intact Psych/Mental Status: Mental status NL, Mood NL, Other MUSCULOSKELETAL: Osteoarthritic changes both hands VITALS VITALS Vital Signs Date Time Temp Pulse Resp B/P (MAP) Pulse Ox O2 Delivery O2 Flow Rate FiO2 09/02/18 08:49 20 96 Room Air 09/02/18 07:00 98.6 72 136/80 (98) 98.6 LABS Lab: Laboratory Tests Test 09/01/18 23:10 09/01/18 23:35 09/02/18 03:00 09/02/18 07:03 White Blood Count 13.0 x10^3/uL (4.0-11.0) 12.0 x10^3/uL (4.0-11.0) Red Blood Count 4.06 x10^6/uL (3.50-5.40) 3.80 x10^6/uL (3.50-5.40) Hemoglobin 13.1 g/dL (12.0-15.5) 12.0 g/dL (12.0-15.5) Hematocrit 38.4 % (36.0-47.0) 36.2 % (36.0-47.0) Mean Corpuscular Volume 94 fL (79-100) 95 fL (79-100) Mean Corpuscular Hemoglobin 32 pg (25-35) 32 pg (25-35) Mean Corpuscular Hemoglobin Concent 34 g/dL (31-37) 33 g/dL (31-37) Red Cell Distribution Width 13.2 % (11.5-14.5) 13.2 % (11.5-14.5) Platelet Count 357 x10^3/uL (140-400) 328 x10^3/uL (140-400) Neutrophils (%) (Auto) 54 % (31-73) 49 % (31-73) Lymphocytes (%) (Auto) 36 % (24-48) 40 % (24-48) Monocytes (%) (Auto) 7 % (0-9) 7 % (0-9) Eosinophils (%) (Auto) 2 % (0-3) 3 % (0-3) Basophils (%) (Auto) 1 % (0-3) 1 % (0-3) Neutrophils # (Auto) 7.0 x10^3uL (1.8-7.7) 5.9 x10^3uL (1.8-7.7) Lymphocytes # (Auto) 4.7 x10^3/uL (1.0-4.8) 4.8 x10^3/uL (1.0-4.8) Monocytes # (Auto) 0.9 x10^3/uL (0.0-1.1) 0.9 x10^3/uL (0.0-1.1) Eosinophils # (Auto) 0.3 x10^3/uL (0.0-0.7) 0.3 x10^3/uL (0.0-0.7) Basophils # (Auto) 0.1 x10^3/uL (0.0-0.2) 0.1 x10^3/uL (0.0-0.2) Prothrombin Time 13.3 SEC (11.7-14.0) Prothromb Time International Ratio 1.0 (0.8-1.1) D-Dimer (Veronica) < 0.27 ug/mlFEU Sodium Level 128 mmol/L (136-145) 133 mmol/L (136-145) Potassium Level 4.0 mmol/L (3.5-5.1) 3.9 mmol/L (3.5-5.1) Chloride Level 89 mmol/L (98-107) 94 mmol/L (98-107) Carbon Dioxide Level 33 mmol/L (21-32) 30 mmol/L (21-32) Anion Gap 6 (6-14) 9 (6-14) Blood Urea Nitrogen 16 mg/dL (7-20) 15 mg/dL (7-20) Creatinine 0.8 mg/dL (0.6-1.0) 0.6 mg/dL (0.6-1.0) Estimated GFR (Cockcroft-Gault) 75.3 105.0 BUN/Creatinine Ratio 20 (6-20) Glucose Level 160 mg/dL (70-99) 95 mg/dL (70-99) Calcium Level 9.1 mg/dL (8.5-10.1) 8.2 mg/dL (8.5-10.1) Magnesium Level 1.7 mg/dL (1.8-2.4) Total Bilirubin 0.2 mg/dL (0.2-1.0) Aspartate Amino Transf (AST/SGOT) 28 U/L (15-37) Alanine Aminotransferase (ALT/SGPT) 46 U/L (14-59) Alkaline Phosphatase 117 U/L (46-116) Creatine Kinase 223 U/L (26-192) Creatine Kinase MB (Mass) 1.2 ng/mL (0.0-3.6) Creatine Kinase MB Relative Index 0.5 % (0-4) Troponin I Quantitative < 0.017 ng/mL (0.000-0.055) < 0.017 ng/mL (0.000-0.055) < 0.017 ng/mL (0.000-0.055) CM-Afs-N-Type Natriuretic Peptide 30 pg/mL (0-124) Total Protein 8.1 g/dL (6.4-8.2) Albumin 3.7 g/dL (3.4-5.0) Albumin/Globulin Ratio 0.8 (1.0-1.7) Thyroid Stimulating Hormone (TSH) 3.862 uIU/mL (0.358-3.74) Urine Collection Type Void Urine Color Yellow Urine Clarity Clear Urine pH 7.0 Urine Specific [place] 1.015 Urine Protein Negative mg/dL (NEG-TRACE) Urine Glucose (UA) Negative mg/dL (NEG) Urine Ketones (Stick) Negative mg/dL (NEG) Urine Blood Negative (NEG) Urine Nitrite Negative (NEG) Urine Bilirubin Negative (NEG) Urine Urobilinogen Dipstick 0.2 mg/dL (0.2 mg/dL) Urine Leukocyte Esterase Negative (NEG) Urine RBC Occ /HPF (0-2) Urine WBC Occ /HPF (0-4) Urine Squamous Epithelial Cells Occ /LPF Urine Bacteria 0 /HPF (0-FEW) Urine Opiates Screen Neg (NEG) Urine Methadone Screen Neg (NEG) Urine Barbiturates Neg (NEG) Urine Phencyclidine Screen Neg (NEG) Urine Amphetamine/Methamphetamine Neg (NEG) Urine Benzodiazepines Screen Neg (NEG) Urine Cocaine Screen Neg (NEG) Urine Cannabinoids Screen Neg (NEG) Urine Ethyl Alcohol Neg (NEG) Influenza Type A Antigen Negative (NEGATIVE) Influenza Type B Antigen Negative (NEGATIVE) Triglycerides Level 132 mg/dL (0-150) Cholesterol Level 155 mg/dL (0-200) LDL Cholesterol, Calculated 81 mg/dL (0-100) VLDL Cholesterol, Calculated 26 mg/dL (0-40) Non-HDL Cholesterol Calculated 107 mg/dL (0-129) HDL Cholesterol 48 mg/dL (40-60) Cholesterol/HDL Ratio 3.2 Test 09/02/18 07:45 Glucose (Fingerstick) 119 mg/dL (70-99) ASSESSMENT/PLAN ASSESSMENT/PLAN 1. Chest pain, mixed features. Concerns for UA. Troponin series normal- AMI ruled out. 2. Accelerated hypertension; better controlled 3. Hyperlipidemia; statin. Lipids on goal 4. Diabetes, II; as per PCP 5. Hypomagnesemia 6. Hyponatremia; improved with IVFs 7. Hypothyroidism; new 8. Anxiety, depression Recommendations Obtain echo to assess LV systolic function Replace Mg Given presentation and significant family history/risk factors for CAD, recommend cardiac cath with possible PCI. R/b/a discussed with patient and she is agreeable. JACQUELINE OLIVIA APRN Sep 02, 2018 09:20
--- NOTE | 2018-09-02 10:01 | CARD ---
MR#: [id number] Date of Study: 09/02/2018 Ordering Physician: ADA PRECIADO, Referring Physician: ANGY DUMONT Tech: Maile Saldana RDCS APPROVED REPORT EXAM: Two-dimensional and M-mode echocardiogram with Doppler and color Doppler. Other Information Quality : Good INDICATION Chest Pain 2D DIMENSIONS RVDd2.2 (2.9-3.5cm)Left Atrium(2D)3.8 (1.6-4.0cm) IVSd1.3 (0.7-1.1cm)Aortic Root(2D)2.8 (2.0-3.7cm) LVDd5.1 (3.9-5.9cm)LVOT Diameter1.9 (1.8-2.4cm) PWd1.1 (0.7-1.1cm)LVDs3.2 (2.5-4.0cm) FS (%) 37.5 %SV83.4 ml LVEF(%)60.0 (>50%) Aortic Valve AoV Peak Scott.187.4cm/sAoV VTI36.4cm AO Peak GR.14.0mmHgLVOT VTI 28.45cm AO Mean GR.8mmHgAVA (VTI)2.20cm2 Mitral Valve MV E Ykzslgts383.9cm/sMV DECEL [id number] MV A Tnxavksf78.7cm/sE/A Ratio1.2 TDI Lateral E' P. V10.94cm/sMedial E' P. V10.88cm/s E/Lateral E'9.9E/Medial E'9.9 Tricuspid Valve TR P. Rhbuxdof841rq/sRAP [id number] TR Peak Gr.15xrXeYCPX83jwCe Pulmonary Vein S1 Iyxsilqt79.3cm/sS2 Eixcdrnx70.21cm/s D2 Bkkhmgne59.2cm/s LEFT VENTRICLE The left ventricle is normal size. There is mild concentric left ventricular hypertrophy. The left ve ntricular systolic function is normal and the ejection fraction is within normal range. The Ejection Fraction is 55-60%. There is normal LV segmental wall motion. The left ventricular diastolic function and filling is normal for age. RIGHT VENTRICLE The right ventricle is normal size. The right ventricular systolic function is normal. ATRIA The left atrium size is normal. The right atrium size is normal. The interatrial septum is intact wit h no evidence for an atrial septal defect or patent foramen ovale as noted on 2-D or Doppler imaging. AORTIC VALVE The aortic valve is normal in structure and function. Doppler and Color Flow revealed no significant aortic regurgitation. There is no significant aortic valvular stenosis. MITRAL VALVE The mitral valve is normal in structure and function. There is no evidence of mitral valve prolapse. There is no mitral valve stenosis. Doppler and Color-flow revealed trace mitral regurgitation. TRICUSPID VALVE The tricuspid valve is normal in structure and function. Doppler and Color Flow revealed mild tricusp id regurgitation. There is moderate-severe pulmonary hypertension. The PA pressure was estimated at 6 8 mmHg. There is no tricuspid valve stenosis. PULMONIC VALVE The pulmonic valve is not well visualized. Doppler and Color Flow revealed no pulmonic valvular regur gitation. There is no pulmonic valvular stenosis. GREAT VESSELS The aortic root is normal in size. The ascending aorta is normal in size. The IVC is dilated and ray apses <50% with inspiration. PERICARDIAL EFFUSION There is no evidence of significant pericardial effusion. Critical Notification Critical Value: No <Conclusion> The left ventricular systolic function is normal and the ejection fraction is within normal range. Th e Ejection Fraction is 55-60%. There is normal LV segmental wall motion. Doppler and Color Flow revealed mild tricuspid regurgitation. There is moderate-severe pulmonary hype rtension. The PA pressure was estimated at 68 mmHg. Signed by : Titi Ann, Electronically Approved : 09/02/2018 10:00:54
--- NOTE | 2018-09-02 11:09 | PDOC2 ---
CONSULT Date of Consult Date of Consult DATE: 09/02/18 TIME: 11:01 Reason for Consult Reason for Consult: Hyponatremia Identification/Chief Complaint Chief Complaint "I am feeling better but very grumpy as I am tired and didnt have anything to eat" Source Source: Chart review, Patient History of Present Illness Reason for Visit: Patient is a 52 year old CF with history of diabetes type 2, hypertension, presented to the ED complaining of a tearing 7/10 mid left sided chest pain radiating to her left shoulder and jaw that began last evening while she was on her computer. Patient denies anything specifically exacerbating or making the pain better. She took 4 tablets of 81 mg of aspirin with no relief. She states she's had chills on and off since . Denies any fever , cough. Denies any urinary symptoms .She was started back on Losartan/HCTZ last week. Takes Ibuprofen and Aleve prn- - few times a month. Denies any health supplements or low sodium diet. She reports that she had blood work in May/Jun at PCP's office and was tols she had low Na She is on many Psych meds but none of them is new She states she had severe nausea yesterday but no vomiting . She denies drinking excessive water . denies any urinary complaints Past Medical History Cardiovascular: HTN, Hyperlipidemia Pulmonary: Asthma, Other (MARGARITA) CENTRAL NERVOUS SYSTEM: Periperal neuropathy GI: No pertinent hx Heme/Onc: No pertinent hx Hepatobiliary: Other (elevated LFTs) Psych: Anxiety, Bipolar, Depression, Other (PTSD) Musculoskeletal: Osteoarthritis Rheumatologic: No pertinent hx Infectious disease: No pertinent hx ENT: No pertinent hx Renal/: No pertinent hx Endocrine: Diabetes Dermatology: No pertinent hx Past Surgical History Past Surgical History: Cholecystectomy, Tubal Ligation, Tonsillectomy Family History Family History: Coronary Artery Disease (father with multiple stents- initially in his 50's. Mother also with stent ), Hypertension Social History No ALCOHOL: none Drugs: None Lives: with Family Current Problem List Problem List Problems Medical Problems: (1) Chest pain Status: Acute (2) Hypertension Status: Acute (3) Hyponatremia Status: Acute Current Medications Current Medications Current Medications Nitroglycerin (Nitrostat) 0.4 mg PRN Q5MIN PRN SL CP RATING > 1/10 Last administered on 09/02/18at 00:34; Start 09/01/18 at 23:15; Stop 09/02/18 at 23:14 Ondansetron HCl (Zofran) 4 mg 1X ONCE IV Last administered on 09/01/18at 23:41; Start 09/02/18 at 00:00; Stop 09/02/18 at 00:01; Status DC Sodium Chloride 1,000 ml @ 1,000 mls/hr 1X ONCE IV Last administered on at 00:33; Start 09/02/18 at 00:00; Stop 09/02/18 at 00:59; Status DC Sodium Chloride 1,000 ml @ 1,000 mls/hr 1X ONCE IV Last administered on at 01:28; Start 09/02/18 at 00:00; Stop 09/02/18 at 00:59; Status DC Ondansetron HCl (Zofran) 4 mg PRN Q8HRS PRN IV NAUSEA/VOMITING 1ST CHOICE Last administered on 09/02/18at 04:55; Start 09/02/18 at 00:00; Stop 09/02/18 at 23:59 Morphine Sulfate (Morphine Sulfate) 2 mg PRN Q2HR PRN IV SEVERE PAIN Last administered on 09/02/18at 08:25; Start 09/02/18 at 00:00; Stop 09/02/18 at 23:59 Acetaminophen (Tylenol) 650 mg PRN Q4HRS PRN PO FEVER Last administered on at 03:11; Start 09/02/18 at 00:00; Stop 09/02/18 at 23:59 Nitroglycerin (Nitrostat) 0.4 mg PRN Q5MIN PRN SL CHEST PAIN; Start 09/02/18 at 00:00; Stop 09/02/18 at 23:59 Sodium Chloride 1,000 ml @ 125 mls/hr 1X ONCE IV Last administered on at 04:26; Start 09/02/18 at 00:30; Stop 09/02/18 at 08:29; Status DC Labetalol HCl (Normodyne Iv Push) 10 mg PRN Q3HRS PRN IVP HYPERTENSION, SEE COMMENTS; Start 09/02/18 at 03:15 Active Scripts Active Reported Novolin N (Nph, Human Insulin Isophane) 100 Unit/1 Ml Vial 31 Unit SQ [id number] Robaxin-750 (Methocarbamol) 750 Mg Tablet 1 Tab PO TID Gabapentin (Gabapentin) 300 Mg Capsule 300 Mg PO BID Jeannine Allergy (Fexofenadine Hcl) 180 Mg Tablet 1 Tab PO DAILY Geodon (Ziprasidone Hcl) 80 Mg Capsule 1 Cap PO BID Atorvastatin Calcium 10 Mg Tablet 10 Mg PO HS Nuvigil (Armodafinil) 250 Mg Tablet 1 Tab PO DAILYWBKFT Glimepiride 4 Mg Tablet 1 Tab PO DAILY Losartan-Hctz 50-12.5 Mg Tab (Losartan/Hydrochlorothiazide) 1 Each Tablet 1 Tab PO DAILY Proair Hfa Inhaler (Albuterol Sulfate) 8.5 Gm Hfa.aer.ad 1 Puff INH PRN Q6HRS PRN Trileptal (Oxcarbazepine) 150 Mg Tablet 3 Tab PO BID Cymbalta (Duloxetine Hcl) 20 Mg Capsule.dr 120 Mg PO DAILY Trazodone Hcl 300 Mg Tablet 200 Mg PO QHS Allergies Allergies: Coded Allergies: erythromycin base (Unverified Allergy, Intermediate, 12/13/16) insulin aspart (Verified Allergy, Intermediate, 09/01/18) insulin aspart protamine human (Verified Allergy, Intermediate, 09/01/18) lithium (Verified Allergy, Intermediate, 09/01/18) ROS Review of System As per HPI Physical Exam Physical Exam General: No acute distress HEENT: Mucous membr. moist/pink Neck Supple Lungs: Clear to auscultation, Heart: Regular rate, Abdomen: Soft, obese Extremities: No edema, Skin: No rash Neuro: Grossly normal - No stover Vital Signs Vital Signs Date Time Temp Pulse Resp B/P (MAP) Pulse Ox O2 Delivery O2 Flow Rate FiO2 09/02/18 08:49 20 96 Room Air 09/02/18 07:00 98.6 72 136/80 (98) 98.6 Assessment & Plan Hyponatremia - Agree with holding HCTZ Na improving with IVF Check Urine lytes, serum amd Ur osm Renal function normal Chest pain - Cardiology following Accelerated hypertension; better controlled Diabetes, II; as per PCP Hypomagnesemia Mild, normal today Anxiety/Depression- On Psych meds chronic Labs Labs Laboratory Tests Test 09/01/18 23:10 09/01/18 23:35 09/02/18 03:00 09/02/18 07:03 White Blood Count 13.0 x10^3/uL (4.0-11.0) 12.0 x10^3/uL (4.0-11.0) Red Blood Count 4.06 x10^6/uL (3.50-5.40) 3.80 x10^6/uL (3.50-5.40) Hemoglobin 13.1 g/dL (12.0-15.5) 12.0 g/dL (12.0-15.5) Hematocrit 38.4 % (36.0-47.0) 36.2 % (36.0-47.0) Mean Corpuscular Volume 94 fL (79-100) 95 fL (79-100) Mean Corpuscular Hemoglobin 32 pg (25-35) 32 pg (25-35) Mean Corpuscular Hemoglobin Concent 34 g/dL (31-37) 33 g/dL (31-37) Red Cell Distribution Width 13.2 % (11.5-14.5) 13.2 % (11.5-14.5) Platelet Count 357 x10^3/uL (140-400) 328 x10^3/uL (140-400) Neutrophils (%) (Auto) 54 % (31-73) 49 % (31-73) Lymphocytes (%) (Auto) 36 % (24-48) 40 % (24-48) Monocytes (%) (Auto) 7 % (0-9) 7 % (0-9) Eosinophils (%) (Auto) 2 % (0-3) 3 % (0-3) Basophils (%) (Auto) 1 % (0-3) 1 % (0-3) Neutrophils # (Auto) 7.0 x10^3uL (1.8-7.7) 5.9 x10^3uL (1.8-7.7) Lymphocytes # (Auto) 4.7 x10^3/uL (1.0-4.8) 4.8 x10^3/uL (1.0-4.8) Monocytes # (Auto) 0.9 x10^3/uL (0.0-1.1) 0.9 x10^3/uL (0.0-1.1) Eosinophils # (Auto) 0.3 x10^3/uL (0.0-0.7) 0.3 x10^3/uL (0.0-0.7) Basophils # (Auto) 0.1 x10^3/uL (0.0-0.2) 0.1 x10^3/uL (0.0-0.2) Prothrombin Time 13.3 SEC (11.7-14.0) Prothromb Time International Ratio 1.0 (0.8-1.1) D-Dimer (Veronica) < 0.27 ug/mlFEU Sodium Level 128 mmol/L (136-145) 133 mmol/L (136-145) Potassium Level 4.0 mmol/L (3.5-5.1) 3.9 mmol/L (3.5-5.1) Chloride Level 89 mmol/L (98-107) 94 mmol/L (98-107) Carbon Dioxide Level 33 mmol/L (21-32) 30 mmol/L (21-32) Anion Gap 6 (6-14) 9 (6-14) Blood Urea Nitrogen 16 mg/dL (7-20) 15 mg/dL (7-20) Creatinine 0.8 mg/dL (0.6-1.0) 0.6 mg/dL (0.6-1.0) Estimated GFR (Cockcroft-Gault) 75.3 105.0 BUN/Creatinine Ratio 20 (6-20) Glucose Level 160 mg/dL (70-99) 95 mg/dL (70-99) Calcium Level 9.1 mg/dL (8.5-10.1) 8.2 mg/dL (8.5-10.1) Magnesium Level 1.7 mg/dL (1.8-2.4) 1.8 mg/dL (1.8-2.4) Total Bilirubin 0.2 mg/dL (0.2-1.0) Aspartate Amino Transf (AST/SGOT) 28 U/L (15-37) Alanine Aminotransferase (ALT/SGPT) 46 U/L (14-59) Alkaline Phosphatase 117 U/L (46-116) Creatine Kinase 223 U/L (26-192) Creatine Kinase MB (Mass) 1.2 ng/mL (0.0-3.6) Creatine Kinase MB Relative Index 0.5 % (0-4) Troponin I Quantitative < 0.017 ng/mL (0.000-0.055) < 0.017 ng/mL (0.000-0.055) < 0.017 ng/mL (0.000-0.055) IW-Irq-I-Type Natriuretic Peptide 30 pg/mL (0-124) Total Protein 8.1 g/dL (6.4-8.2) Albumin 3.7 g/dL (3.4-5.0) Albumin/Globulin Ratio 0.8 (1.0-1.7) Thyroid Stimulating Hormone (TSH) 3.862 uIU/mL (0.358-3.74) Urine Collection Type Void Urine Color Yellow Urine Clarity Clear Urine pH 7.0 Urine Specific Herrick 1.015 Urine Protein Negative mg/dL (NEG-TRACE) Urine Glucose (UA) Negative mg/dL (NEG) Urine Ketones (Stick) Negative mg/dL (NEG) Urine Blood Negative (NEG) Urine Nitrite Negative (NEG) Urine Bilirubin Negative (NEG) Urine Urobilinogen Dipstick 0.2 mg/dL (0.2 mg/dL) Urine Leukocyte Esterase Negative (NEG) Urine RBC Occ /HPF (0-2) Urine WBC Occ /HPF (0-4) Urine Squamous Epithelial Cells Occ /LPF Urine Bacteria 0 /HPF (0-FEW) Urine Opiates Screen Neg (NEG) Urine Methadone Screen Neg (NEG) Urine Barbiturates Neg (NEG) Urine Phencyclidine Screen Neg (NEG) Urine Amphetamine/Methamphetamine Neg (NEG) Urine Benzodiazepines Screen Neg (NEG) Urine Cocaine Screen Neg (NEG) Urine Cannabinoids Screen Neg (NEG) Urine Ethyl Alcohol Neg (NEG) Influenza Type A Antigen Negative (NEGATIVE) Influenza Type B Antigen Negative (NEGATIVE) Triglycerides Level 132 mg/dL (0-150) Cholesterol Level 155 mg/dL (0-200) LDL Cholesterol, Calculated 81 mg/dL (0-100) VLDL Cholesterol, Calculated 26 mg/dL (0-40) Non-HDL Cholesterol Calculated 107 mg/dL (0-129) HDL Cholesterol 48 mg/dL (40-60) Cholesterol/HDL Ratio 3.2 Test 09/02/18 07:45 Glucose (Fingerstick) 119 mg/dL (70-99) Laboratory Tests Test 09/01/18 23:10 09/01/18 23:35 09/02/18 03:00 09/02/18 07:03 White Blood Count 13.0 x10^3/uL (4.0-11.0) 12.0 x10^3/uL (4.0-11.0) Red Blood Count 4.06 x10^6/uL (3.50-5.40) 3.80 x10^6/uL (3.50-5.40) Hemoglobin 13.1 g/dL (12.0-15.5) 12.0 g/dL (12.0-15.5) Hematocrit 38.4 % (36.0-47.0) 36.2 % (36.0-47.0) Mean Corpuscular Volume 94 fL (79-100) 95 fL (79-100) Mean Corpuscular Hemoglobin 32 pg (25-35) 32 pg (25-35) Mean Corpuscular Hemoglobin Concent 34 g/dL (31-37) 33 g/dL (31-37) Red Cell Distribution Width 13.2 % (11.5-14.5) 13.2 % (11.5-14.5) Platelet Count 357 x10^3/uL (140-400) 328 x10^3/uL (140-400) Neutrophils (%) (Auto) 54 % (31-73) 49 % (31-73) Lymphocytes (%) (Auto) 36 % (24-48) 40 % (24-48) Monocytes (%) (Auto) 7 % (0-9) 7 % (0-9) Eosinophils (%) (Auto) 2 % (0-3) 3 % (0-3) Basophils (%) (Auto) 1 % (0-3) 1 % (0-3) Neutrophils # (Auto) 7.0 x10^3uL (1.8-7.7) 5.9 x10^3uL (1.8-7.7) Lymphocytes # (Auto) 4.7 x10^3/uL (1.0-4.8) 4.8 x10^3/uL (1.0-4.8) Monocytes # (Auto) 0.9 x10^3/uL (0.0-1.1) 0.9 x10^3/uL (0.0-1.1) Eosinophils # (Auto) 0.3 x10^3/uL (0.0-0.7) 0.3 x10^3/uL (0.0-0.7) Basophils # (Auto) 0.1 x10^3/uL (0.0-0.2) 0.1 x10^3/uL (0.0-0.2) Prothrombin Time 13.3 SEC (11.7-14.0) Prothromb Time International Ratio 1.0 (0.8-1.1) D-Dimer (Veronica) < 0.27 ug/mlFEU Sodium Level 128 mmol/L (136-145) 133 mmol/L (136-145) Potassium Level 4.0 mmol/L (3.5-5.1) 3.9 mmol/L (3.5-5.1) Chloride Level 89 mmol/L (98-107) 94 mmol/L (98-107) Carbon Dioxide Level 33 mmol/L (21-32) 30 mmol/L (21-32) Anion Gap 6 (6-14) 9 (6-14) Blood Urea Nitrogen 16 mg/dL (7-20) 15 mg/dL (7-20) Creatinine 0.8 mg/dL (0.6-1.0) 0.6 mg/dL (0.6-1.0) Estimated GFR (Cockcroft-Gault) 75.3 105.0 BUN/Creatinine Ratio 20 (6-20) Glucose Level 160 mg/dL (70-99) 95 mg/dL (70-99) Calcium Level 9.1 mg/dL (8.5-10.1) 8.2 mg/dL (8.5-10.1) Magnesium Level 1.7 mg/dL (1.8-2.4) 1.8 mg/dL (1.8-2.4) Total Bilirubin 0.2 mg/dL (0.2-1.0) Aspartate Amino Transf (AST/SGOT) 28 U/L (15-37) Alanine Aminotransferase (ALT/SGPT) 46 U/L (14-59) Alkaline Phosphatase 117 U/L (46-116) Creatine Kinase 223 U/L (26-192) Creatine Kinase MB (Mass) 1.2 ng/mL (0.0-3.6) Creatine Kinase MB Relative Index 0.5 % (0-4) Troponin I Quantitative < 0.017 ng/mL (0.000-0.055) < 0.017 ng/mL (0.000-0.055) < 0.017 ng/mL (0.000-0.055) VV-Hgy-R-Type Natriuretic Peptide 30 pg/mL (0-124) Total Protein 8.1 g/dL (6.4-8.2) Albumin 3.7 g/dL (3.4-5.0) Albumin/Globulin Ratio 0.8 (1.0-1.7) Thyroid Stimulating Hormone (TSH) 3.862 uIU/mL (0.358-3.74) Urine Collection Type Void Urine Color Yellow Urine Clarity Clear Urine pH 7.0 Urine Specific Herrick 1.015 Urine Protein Negative mg/dL (NEG-TRACE) Urine Glucose (UA) Negative mg/dL (NEG) Urine Ketones (Stick) Negative mg/dL (NEG) Urine Blood Negative (NEG) Urine Nitrite Negative (NEG) Urine Bilirubin Negative (NEG) Urine Urobilinogen Dipstick 0.2 mg/dL (0.2 mg/dL) Urine Leukocyte Esterase Negative (NEG) Urine RBC Occ /HPF (0-2) Urine WBC Occ /HPF (0-4) Urine Squamous Epithelial Cells Occ /LPF Urine Bacteria 0 /HPF (0-FEW) Urine Opiates Screen Neg (NEG) Urine Methadone Screen Neg (NEG) Urine Barbiturates Neg (NEG) Urine Phencyclidine Screen Neg (NEG) Urine Amphetamine/Methamphetamine Neg (NEG) Urine Benzodiazepines Screen Neg (NEG) Urine Cocaine Screen Neg (NEG) Urine Cannabinoids Screen Neg (NEG) Urine Ethyl Alcohol Neg (NEG) Influenza Type A Antigen Negative (NEGATIVE) Influenza Type B Antigen Negative (NEGATIVE) Triglycerides Level 132 mg/dL (0-150) Cholesterol Level 155 mg/dL (0-200) LDL Cholesterol, Calculated 81 mg/dL (0-100) VLDL Cholesterol, Calculated 26 mg/dL (0-40) Non-HDL Cholesterol Calculated 107 mg/dL (0-129) HDL Cholesterol 48 mg/dL (40-60) Cholesterol/HDL Ratio 3.2 Test 09/02/18 07:45 Glucose (Fingerstick) 119 mg/dL (70-99) Review All relevant outside records, renal labs, imaging studies, telemetry/EKG's were reviewed. Images Images CxR-- No acute radiographic abnormality. JOSE,DEONDRE MD Sep 02, 2018 11:09
[2018-09-02] MEDS ORDERED: LIDOCAINE 1% Multi-Dose 20 ML VIAL. ONE (12:56)
--- NOTE | 2018-09-02 13:01 | SSS ---
ADMIT DATE: CHIEF COMPLAINT: Chest pain. HISTORY OF PRESENT ILLNESS: The patient is a pleasant 52-year-old female who presents with chest pain. She rates it 7. She has associated nausea. It has been occurring for several days. She took some home meds, but that did not work. She also has some shoulder and jaw pain, describes it as irritating. I discussed the case with ER physician. We have admitted the patient. She is now being seen in the ICU. She is going for cardiac catheterization here in just a few minutes. I did talk to Case Management a few minutes ago as well. I think this patient may be a short stay observation, but we are still trying to clarify that. PAST MEDICAL HISTORY: Asthma, bipolar, diabetes, glaucoma, hypertension, hyperlipidemia, gastroparesis, obstructive sleep apnea, cholecystectomy, tonsillectomy, tubal ligation, cryosurgery, D and C, thermal ablation. ALLERGIES: ERYTHROMYCIN, INSULIN. LITHIUM. FAMILY HISTORY: Coronary artery disease. SOCIAL HISTORY: She does not drink, smoke or take drugs. She is . MEDICATIONS: Reviewed, please refer to MRAShoshana. She is on 13 including Jeannine, ProAir, Robaxin, Atorvastatin, losartan, gabapentin, Trileptal, Cymbalta, trazodone, Geodon. Nuvigil, insulin, glimepiride. REVIEW OF SYSTEMS: GENERAL: No history of weight change, weakness or fevers. SKIN: No bruising, hair changes or rashes. EYES: No blurred, double or loss of vision. NOSE AND THROAT: No history of nosebleeds, hoarseness or sore throat. HEART: She complains of chest pain. LUNGS: Denies cough, hemoptysis, wheezing or shortness of breath. GASTROINTESTINAL: Denies changes in appetite, nausea, vomiting, diarrhea or constipation. GENITOURINARY: No history of frequency, urgency, hesitancy or nocturia. NEUROLOGIC: Denies history of numbness, tingling, tremor or weakness. PSYCHIATRIC: No history of panic, anxiety or depression. ENDOCRINE: No history of heat or cold intolerance, polyuria or polydipsia. EXTREMITIES: Denies muscle weakness, joint pain, pain on walking or stiffness. PHYSICAL EXAMINATION: VITAL SIGNS: Temperature is afebrile, pulse 74, respirations 18, blood pressure 135/80. GENERAL: She is alert, cooperative. Her is present here in the ICU. HEART: Normal S1, S2. LUNGS: Clear. ABDOMEN: Soft, little obese. EXTREMITIES: Trace edema. SKIN: No rashes. ENDOCRINE: No thyromegaly. LYMPHATICS: No cervical nodes. HEMATOPOIETIC: No bruising. PSYCHIATRIC: She is anxious. LABORATORY DATA: White count is 13. Electrolytes: Sodium is 133 and chloride is low at 94. Troponin is 0. Glucose is 119. ASSESSMENT AND PLAN: Chest pain, rule out coronary artery disease. The patient has been admitted. 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 Await cardiology input in her cath report. For now, cardiac monitoring, home meds, serial enzymes, serial EKGs. Hope to discharge if the cath is negative. LYNN LIRA DO DR: TAVO/leandro JOB#: [id number] / [id number]
--- NOTE | 2018-09-02 13:15 | NUR ---
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
[2018-09-02] MEDS ORDERED: fentaNYL PF VIAL 100 MCG/2 ML VIAL ONE (13:22)
[2018-09-02] MEDS ORDERED: HEPARIN for IV BOLUS 10,000 UNIT/10 ML VIAL. ONE (13:23)
[2018-09-02] MEDS ORDERED: NITROGLYCERIN 200 MCG/2 ML SYRINGE FOR CATH/VASC LAB. ONE ×2 (13:23→14:04)
[2018-09-02] MEDS ORDERED: VERAPAMIL 5 MG/2 ML VIAL. ONE (13:23)
[2018-09-02] MEDS ORDERED: MIDAZOLAM HCL/PF 2 MG/2 ML VIAL. ONE ×2 (13:23→14:01)
--- NOTE | 2018-09-02 13:27 | PDOC ---
MODERATE SEDATION ASSESSMENT RISKS/ALTERNATIVES Risks/Alternatives Risks and alternatives of this type of sedation and procedure discussed with: RISK/ALTERNATIVES: Patient H & P ON CHART H & P H & P on chart and reviewed for co-morbid conditions and appropriate labs. H&P ON CHART: Yes STATUS PREG STATUS ASSESSED: Yes MEDS/ALLERGIES REVIEWED Meds/Allergies Reviewed Medications and Allergies including time and route of recently administered narcotics and sedatives. MEDS/ALLERGIES REVIEWED: Yes ASA RATING ASA RATING: II AIRWAY ASSESSMENT Airway Assessment Airway patency, oral function limitations, presence of caps, crowns, dentures, partials, and ability to extend neck assessed. AIRWAY ASSESSMENT: Yes MALLAMPATI SCORE MALLAMPATI SCORE: II PRE-SEDATION ASSESSMENT PRE-SEDATION ASSESSMENT: Yes JOO CLEVELAND MD Sep 02, 2018 13:27
[2018-09-02] MEDS ORDERED: fentaNYL PF VIAL 100 MCG/2 ML VIAL IV ONE (13:30)
[2018-09-02] MEDS ORDERED: IODIXANOL 320 MG/ML 100 ML VIAL. IART ONE (13:30)
[2018-09-02] MEDS ORDERED: HEPARIN for IV BOLUS 10,000 UNIT/10 ML VIAL. IART ONE (13:30)
[2018-09-02] MEDS ORDERED: LIDOCAINE 1% Multi-Dose 20 ML VIAL. INJ ONE (13:30)
[2018-09-02] MEDS ORDERED: NITROGLYCERIN 200 MCG/2 ML SYRINGE FOR CATH/VASC LAB. IART ONE (13:30)
[2018-09-02] MEDS ORDERED: VERAPAMIL 5 MG/2 ML VIAL. IART ONE (13:30)
[2018-09-02] MEDS ORDERED: MIDAZOLAM HCL/PF 2 MG/2 ML VIAL. IV ONE (13:30)
[2018-09-02] MEDS ORDERED: NITROGLYCERIN OINT 1 GM PACKET. ONE (13:35)
[2018-09-02] MEDS ORDERED: IOHEXOL 300 MG/ML 100ML VIAL. ONE (13:52)
[2018-09-02] MEDS ORDERED: CONTRAST GIVEN. MC PRN (14:00)
[2018-09-02] MEDS ORDERED: IV NORMAL SALINE 1000ML BAG 1,000 ML IV SCH (14:18)
[2018-09-02] MEDS ORDERED: 0.9 % SODIUM CHLORIDE 10 ML DISP.SYRIN. IV PRN (14:30)
[2018-09-02] MEDS ORDERED: NITROGLYCERIN SUBLINGUAL 0.4 MG BOTTLE OF 25. SL PRN ×2 (14:30)
[2018-09-02] MEDS ORDERED: amLODIPine BESYLATE 5 MG TABLET PO SCH (15:00)
--- NOTE | 2018-09-02 15:26 | CARD ---
MR#: [id number] Date of Study: 09/02/2018 Ordering Physician: JACQUELINE OLIVIA, Referring Physician: Juan Carlos PADGETT: LEYDI HELLER RTR APPROVED REPORT Procedures Left heart catheterization Selective coronary angiogram Aortic root injection The patient is a 52-year-old female with severe hypertension and significant episodes of relatively s evere chest discomfort. Patient ruled out for myocardial infarction but continue have episodes of edilson st pain. She has risk factors of diabetes mellitus and hyperlipidemia. Cardiac catheterization was re commended. Risks and benefits were discussed. The patient agreed to proceed with catheterization and possible intervention. After informed consent was obtained the patient was brought to the heart catheterization lab. The are a of the right radial artery was prepared in the usual manner with Betadine, sterile draping and loca l anesthetic after acceptable Nehemias's test. A quick catheter device was used to enter the right radia l artery, a wire placed and a 6 [place] sheath placed over the wire. The usual mixture of heparin and anti-spasm medication was administered. Using a J-wire a 6 [place] JL4 diagnostic catheter was advance d ascending aorta. It was used to engage the left coronary system and sequential injections in vario us views were obtained. Using an ovcd-aor-omfc exchange a 6 [place] JR4 diagnostic catheter was advanc ed to the ascending aorta. It crossed the aortic root and pressures and pullback pressures were recor ded. It was then used to engage the right coronary artery and sequential injections in various views were obtained. A pigtail catheter was then placed to the aortic root. A 30 DAILY aortic root injection was performed. The catheter was removed from the patient. The sheath was removed from the patient an d the puncture site sealed in the usual manner using TR band. The patient was moved to the [facility] in stable condition. Findings. Hemodynamics. LV pressure of 142/16. Aortic root pressure of 140/88. Coronaries. Left main. The left main was a moderate size vessel with no lesions. Left anterior descending. The LAD was a moderately large vessel. It had a mid smooth 10-15% lesion. Left circumflex. The left circumflex is a moderate size dominant vessel. It had no lesions. Right coronary artery the right coronary was a moderate size vessel with a small distal vessel. It browne d no lesions. Aortic root injection. The aortic root appeared normal with no dilatation and no significant aortic insufficiency. <Conclusion> Minimal single-vessel coronary disease with no lesions greater than 20%. Normal aortic root. Signed by : Navneet Looney MD Electronically Approved : 09/02/2018 15:25:51
--- NOTE | 2018-09-02 18:31 | NUR ---
Patient ambulated out to the elevators and down to outpatient door without assist accompanied by staff. Denies pain or dizziness at this time. All personal belongings with patient. Patient discharged home with .
[2018-09-03 12:24] LABS: SODIUM, URINE <60 mmol/L (Not Estab.); UR POTASSIUM 14.9 mmol/L (Not Estab.)
[2018-10-17] MEDS ORDERED: ATOR40TA59 PO (10:39)
[2018-10-17] MEDS ORDERED: ASPI-612 PO (10:44)
== END 2018-09-02 18:33 | disposition home or self-care (01) | DRG 287 ==
LOC: ER 22:42 → 1 WEST ICU 23:50
PROVIDERS: ADMIT Internal Medicine; ATTEND Internal Medicine
PROC: 4A023N7 Measurement of Cardiac Sampling and Pressure, Left Heart, Percutaneous Approach (ICD-10-PCS; principal; 2018-09-02)
PROC: B2111ZZ Fluoroscopy of Multiple Coronary Arteries using Low Osmolar Contrast (ICD-10-PCS; 2018-09-02)
PROC: B3101ZZ Fluoroscopy of Thoracic Aorta using Low Osmolar Contrast (ICD-10-PCS; 2018-09-02)
DX: R07.89 Other chest pain (principal); E87.1 Hypo-osmolality and hyponatremia; E03.9 Hypothyroidism, unspecified; E78.00 Pure hypercholesterolemia, unspecified; E78.5 Hyperlipidemia, unspecified; E83.42 Hypomagnesemia; F31.9 Bipolar disorder, unspecified; F43.10 Post-traumatic stress disorder, unspecified; E11.42 Type 2 diabetes mellitus with diabetic polyneuropathy; F41.9 Anxiety disorder, unspecified; G47.33 Obstructive sleep apnea (adult) (pediatric); H40.9 Unspecified glaucoma; I10 Essential (primary) hypertension; J45.909 Unspecified asthma, uncomplicated; M19.90 Unspecified osteoarthritis, unspecified site; Z82.49 Family history of ischemic heart disease and other diseases of the circulatory system; Z79.4 Long term (current) use of insulin; Z88.8 Allergy status to other drugs, medicaments and biological substances; Z90.49 Acquired absence of other specified parts of digestive tract; Z98.51 Tubal ligation status
CPT/HCPCS: 36415; 71045; 80048; 80053; 80061; 80307; 81001; 82436; 82553; 82962; 83735; 83880; 83930; 83935; 84133; 84300; 84443; 84484; 85025; 85379; 85610; 87804; 93005; 93306; 93458; 93567; 94660; 96361; 96374; 99152; 99153; C1769; C1892; J1644; J2250; J2270; J2405; J3010; J3490; J7030; Q9967; 99285-25

== ENCOUNTER 2018-09-15 10:54 | Emergency (ER) | payer BC ==
[~2018-09-15] VITALS: Ht 152.4 cm; Wt 121.1 kg
[~2018-09-15 10:54] MED LIST changes: +ARMO150T4 PO; +ARMO250T4 PO; +ATOR10TA60 PO; +FEXO180T81 PO; +GABA300C18 PO; +GLIM4TAB2 PO; +LOSA1TAB19 PO; +METH-38 PO; +NPH,100V5 SQ; +ZIPR80CA2 PO
[2018-09-15 11:34] LABS: BASO % 1 % (0-3); EOS # 0.3 x10^3/uL (0.0-0.7); EOS % 3 % (0-3); HEMATOCRIT 33.7 % (36.0-47.0); HEMOGLOBIN 11.3 g/dL (12.0-15.5); LYMPH # 2.6 x10^3/uL (1.0-4.8); LYMPH % 31 % (24-48); MEAN CORPUSCULAR HEMOGLOBIN 32 pg (25-35); MEAN CORPUSCULAR HGB CONC 34 g/dL (31-37); MEAN CORPUSCULAR VOLUME 95 fL (79-100); MONO # 0.5 x10^3/uL (0.0-1.1); MONO % 6 % (0-9); NEUT % 59 % (31-73); PLATELET COUNT 283 x10^3/uL (140-400); RED BLOOD COUNT 3.55 x10^6/uL (3.50-5.40); RED CELL DISTRIBUTION WIDTH 13.3 % (11.5-14.5); WHITE BLOOD COUNT 8.4 x10^3/uL (4.0-11.0)
[2018-09-15 11:48] LABS: D-DIMER 0.4 ug/mlFEU (0.00-0.50)
[2018-09-15 11:55] LABS: CALCIUM 8.5 mg/dL (8.5-10.1); CREATININE 0.7 mg/dL (0.6-1.0); GFR 87.9; POTASSIUM 3.8 mmol/L (3.5-5.1)
[2018-09-15 12:01] LABS: ALBUMIN 3.4 g/dL (3.4-5.0); ALBUMIN/GLOBULIN RATIO 0.8 (1.0-1.7); TOTAL BILIRUBIN 0.1 mg/dL (0.2-1.0); TOTAL PROTEIN 7.5 g/dL (6.4-8.2)
[2018-09-15 12:02] LABS: MAGNESIUM 1.8 mg/dL (1.8-2.4)
--- NOTE | 2018-09-15 12:23 | RAD ---
EXAM: AP View of the chest DATE: 09/15/2018 11:36 AM INDICATION: SOA COMPARISON: 09/01/2018 03/27/2017 FINDINGS: The heart is borderline enlarged, stable. Mediastinal and hilar contours are normal. No focal parenchymal airspace opacity. No pleural effusion or pneumothorax. IMPRESSION: 1. No radiographic evidence for acute cardiopulmonary process. Electronically signed by: Patrick Marr MD (09/15/2018 12:20 PM) [id number]
[2018-09-15] MEDS: IOHEXOL 350 MG/ML 100 ML VIAL. IV ONE (12:44)
[2018-09-15] MEDS ORDERED: CONTRAST GIVEN. MC PRN (12:45)
--- NOTE | 2018-09-15 12:54 | RAD ---
PQRS Compliance statement: One or more of the following individualized dose reduction techniques were utilized for this examination: 1. Automated exposure control. 2. Adjustment of the mA and/or kV according to patient size. 3. Use of iterative reconstruction technique. Indication:chest pain, soa, evaluate for PE.
IV OMNI 350 100 MLS TECHNIQUE: CT angiogram of the chest with IV contrast with multiplanar MIP reformats. COMPARISON:None FINDINGS: Diagnostic quality PE study. There are no central, segmental or subsegmental filling defects in the pulmonary arteries. Heart is normal in size. No pericardial or pleural effusion. Clear neck base. No enlarged axillary, mediastinal or hilar adenopathy. Central airways are patent. Lungs are clear. Visualized sections through the liver, spleen, adrenals, kidneys, pancreas within normal limits. No suspicious bony lesion. IMPRESSION: No PE. No pneumonia. Electronically signed by: Ramiro Whitt DO (09/15/2018 12:51 PM) [facility]
--- NOTE | 2018-09-15 13:19 | PHYS DOC ---
Past Medical History Past Medical History: Asthma, Bipolar, Diabetes-Type II, Glaucoma, High Cholesterol, Hypertension, Other Additional Past Medical Histor: GASTROPARESIS, SLEEP APNEA, GLAUCOMA Past Surgical History: Cholecystectomy, Tonsillectomy, Tubal ligation, Other Additional Past Surgical Histo: CRYO SURG,D&C,THERMOABLATION, CARDIAC CATH Alcohol Use: None Drug Use: None Adult General Chief Complaint Chief Complaint: SHORTNESS OF BREATH HPI HPI Patient is a 52 year old female presented to ER today for evaluation of trouble breathing. Patient was sent here from her family physician clinic after she followed up in the clinic for hospital follow up. She was admitted here on September 02 for chest pain and trouble breathing. Patient had a negative cardiac catheterization done on September 02, had a normal echocardiogram done on the same hospitalization with an EF of 55-60%. She has history of bipolar disorder, she had a psychiatrist. She denies history of sleep apnea, she had BiPAP at night. Patient reports shortness of breath had worsened since Friday and is associated with wheezing and some right upper chest pain. Patient reports she cannot walk more than 10 feet without shortness of air. Patient took an albuterol respiratory treatment but without relief. He is scheduled to see a drug abuse resistance education officer in October. Review of Systems Review of Systems Constitutional: Denies fever or chills [] Eyes: Denies change in visual acuity, redness, or eye pain [] HENT: Denies nasal congestion or sore throat [] Respiratory: Denies cough , POSITIVE FOR shortness of breath [] Cardiovascular: No additional information not addressed in HPI [] GI: Denies abdominal pain, nausea, vomiting, bloody stools or diarrhea [] : Denies dysuria or hematuria [] Musculoskeletal: Denies back pain or joint pain [] Integument: Denies rash or skin lesions [] Neurologic: Denies headache, focal weakness or sensory changes [] Endocrine: Denies polyuria or polydipsia [] All other systems were reviewed and found to be within normal limits, except as documented in this note. Current Medications Current Medications Current Medications Medications (Trade) Dose Ordered Sig/Karol Start Time Stop Time Status Last Admin Dose Admin Info (CONTRAST GIVEN -- Rx MONITORING) 1 each PRN DAILY PRN 09/15/18 12:45 09/17/18 12:44 Iohexol (Omnipaque 350 Mg/ml) 100 ml 1X ONCE 09/15/18 12:45 09/15/18 12:46 DC 09/15/18 12:44 100 ML Sodium Chloride 1,000 ml @ 1,000 mls/hr 1X ONCE 09/15/18 13:15 09/15/18 14:14 09/15/18 13:45 1,000 MLS/HR Allergies Allergies Allergies Coded Allergies Type Severity Reaction Last Updated Verified erythromycin base Allergy Intermediate 12/13/16 No insulin aspart Allergy Intermediate 09/01/18 Yes insulin aspart protamine human Allergy Intermediate 09/01/18 Yes lithium Allergy Intermediate 09/01/18 Yes Physical Exam Physical Exam Constitutional: Well developed, well nourished, no acute distress, non-toxic appearance. [] HENT: Normocephalic, atraumatic, bilateral external ears normal, oropharynx moist, no oral exudates, nose normal. [] Eyes: PERRLA, EOMI, conjunctiva normal, no discharge. [] Neck: Normal range of motion, no tenderness, supple, no stridor. [] Cardiovascular:Heart rate regular rhythm, no murmur [] Lungs & Thorax: Bilateral breath sounds clear to auscultation [] Abdomen: Bowel sounds normal, soft, no tenderness, no masses, no pulsatile masses. [] Skin: Warm, dry, no erythema, no rash. [] Back: No tenderness, no CVA tenderness. [] Extremities: No tenderness, no cyanosis, no clubbing, ROM intact, MILD PITTING edema. [] Neurologic: Alert and oriented X 3, normal motor function, normal sensory function, no focal deficits noted. [] Psychologic: Affect normal, judgement normal, mood normal. [] Current Patient Data Vital Signs Vital Signs Date Time Temp Pulse Resp B/P (MAP) Pulse Ox O2 Delivery O2 Flow Rate FiO2 09/15/18 11:00 97.6 72 20 169/70 (103) 98 Room Air 97.6 Lab Values Laboratory Tests Test 09/15/18 11:06 09/15/18 13:00 White Blood Count 8.4 x10^3/uL (4.0-11.0) Red Blood Count 3.55 x10^6/uL (3.50-5.40) Hemoglobin 11.3 g/dL (12.0-15.5) L Hematocrit 33.7 % (36.0-47.0) L Mean Corpuscular Volume 95 fL (79-100) Mean Corpuscular Hemoglobin 32 pg (25-35) Mean Corpuscular Hemoglobin Concent 34 g/dL (31-37) Red Cell Distribution Width 13.3 % (11.5-14.5) Platelet Count 283 x10^3/uL (140-400) Neutrophils (%) (Auto) 59 % (31-73) Lymphocytes (%) (Auto) 31 % (24-48) Monocytes (%) (Auto) 6 % (0-9) Eosinophils (%) (Auto) 3 % (0-3) Basophils (%) (Auto) 1 % (0-3) Neutrophils # (Auto) 5.0 x10^3uL (1.8-7.7) Lymphocytes # (Auto) 2.6 x10^3/uL (1.0-4.8) Monocytes # (Auto) 0.5 x10^3/uL (0.0-1.1) Eosinophils # (Auto) 0.3 x10^3/uL (0.0-0.7) Basophils # (Auto) 0.0 x10^3/uL (0.0-0.2) Prothrombin Time 13.0 SEC (11.7-14.0) Prothrombin Time INR 1.0 (0.8-1.1) PTT 31 SEC (24-38) D-Dimer (Veronica) 0.40 ug/mlFEU (0.00-0.50) Sodium Level 126 mmol/L (136-145) L Potassium Level 3.8 mmol/L (3.5-5.1) Chloride Level 89 mmol/L (98-107) L Carbon Dioxide Level 31 mmol/L (21-32) Anion Gap 6 (6-14) Blood Urea Nitrogen 8 mg/dL (7-20) Creatinine 0.7 mg/dL (0.6-1.0) Estimated GFR (Cockcroft-Gault) 87.9 BUN/Creatinine Ratio 11 (6-20) Glucose Level 243 mg/dL (70-99) H Calcium Level 8.5 mg/dL (8.5-10.1) Magnesium Level 1.8 mg/dL (1.8-2.4) Total Bilirubin 0.1 mg/dL (0.2-1.0) L Aspartate Amino Transferase (AST) 24 U/L (15-37) Alanine Aminotransferase (ALT) 39 U/L (14-59) Alkaline Phosphatase 121 U/L (46-116) H Creatine Kinase 109 U/L (26-192) Creatine Kinase MB (Mass) 0.7 ng/mL (0.0-3.6) Creatine Kinase MB Relative Index 0.6 % (0-4) Troponin I Quantitative < 0.017 ng/mL (0.000-0.055) PU-Yhd-[id number]-Type Natriuretic Peptide 30 pg/mL (0-124) Total Protein 7.5 g/dL (6.4-8.2) Albumin 3.4 g/dL (3.4-5.0) Albumin/Globulin Ratio 0.8 (1.0-1.7) L Lipase 243 U/L (73-393) Urine Collection Type Unknown Urine Color Yellow Urine Clarity Clear Urine pH 6.0 Urine Specific [place] >=1.030 Urine Protein Negative mg/dL (NEG-TRACE) Urine Glucose (UA) >=1000 mg/dL (NEG) Urine Ketones (Stick) Negative mg/dL (NEG) Urine Blood Negative (NEG) Urine Nitrite Negative (NEG) Urine Bilirubin Negative (NEG) Urine Urobilinogen Dipstick 0.2 mg/dL (0.2 mg/dL) Urine Leukocyte Esterase Negative (NEG) Urine RBC 0 /HPF (0-2) Urine WBC 1-4 /HPF (0-4) Urine Squamous Epithelial Cells Mod /LPF Urine Bacteria Moderate /HPF (0-FEW) Laboratory Tests 09/15/18 11:06 Laboratory Tests 09/15/18 11:06 EKG EKG ekg was read by this physician at 1101, rate of 73 bpm, sinus rhythm, no stemi. [] Radiology/Procedures Radiology/Procedures [][facility] [address] [place], [place] [id number] IMAGING REPORT Signed PATIENT: ANDREAS LIAO ACCOUNT: [id number] : 1965 LOCATION: ER AGE: 52 SEX: F EXAM STATUS: REG ER ORD. PHYSICIAN: CHANNING MUNROE DO REASON: chest pain, soa, evaluate for PE. PROCEDURE: CT ANGIOGRAPHY CHEST RS Compliance statement: One or more of the following individualized dose reduction techniques were utilized for this examination: 1. Automated exposure control. 2. Adjustment of the mA and/or kV according to patient size. 3. Use of iterative reconstruction technique. Indication:chest pain, soa, evaluate for PE.
IV OMNI 350 100 MLS TECHNIQUE: CT angiogram of the chest with IV contrast with multiplanar MIP reformats. COMPARISON:None FINDINGS: Diagnostic quality PE study. There are no central, segmental or subsegmental filling defects in the pulmonary arteries. Heart is normal in size. No pericardial or pleural effusion. Clear neck base. No enlarged axillary, mediastinal or hilar adenopathy. Central airways are patent. Lungs are clear. Visualized sections through the liver, spleen, adrenals, kidneys, pancreas within normal limits. No suspicious bony lesion. IMPRESSION: No PE. No pneumonia. Electronically signed by: Ramiro Whitt DO (09/15/2018 12:51 PM) [facility] [place] DICTATED and SIGNED BY: RAMIRO WHITT DO DATE: 09/15/18 1251 Course & Med Decision Making Course & Med Decision Making Pertinent Labs and Imaging studies reviewed. (See chart for details) Workup in the ER Failed to show any acute disease. Patient had recent cardiac catherization with minimal single vessel coronary disease with no lesion greater than 20%. She has normal echo with EF OF 55%-60 %. She has no PE OR PNEUMONIA. PATIENT'S HAD NORMAL OXYGEN SATURATION ON ROOM AIR. SHE WAS IN NO ACUTE DISTRESS IN THE ER. PATIENT HAS SLEEP APNEA, ON CPAP AT NIGHT. SHE WILL NEED TO FOLLOW UP WITH EDGE SANDER FOR FURTHER EVALUATION. NO NEED FOR READMISSION TODAY. Dragon Disclaimer Dragon Disclaimer This electronic medical record was generated, in whole or in part, using a voice recognition dictation system. Departure Departure Impression: Primary Impression: Acute dyspnea Additional Impression: Hyponatremia Disposition: 01 HOME, SELF-CARE Condition: IMPROVED Referrals: ELEAZAR LEO MD (PCP) FOLLOW UP WITH YOUR LUNG DOCTOR SCHEDULED Patient Instructions: Hyponatremia, Shortness of Breath Problem Qualifiers CHANNING MUNROE DO Sep 15, 2018 13:19
[2018-09-15 13:21] LABS: BILIRUBIN,URINE NEGATIVE (NEG); CLARITY,URINE CLEAR; COLOR,URINE YELLOW; NITRITE,URINE NEGATIVE (NEG); PROTEIN,URINE NEGATIVE (NEG-TRACE); UROBILINOGEN,URINE 0.2 mg/dL (0.2 mg/dL)
[2018-09-15 13:26] LABS: SQUAMOUS EPITHELIAL CELL,UR MOD /LPF
[2018-09-15 13:27] LABS: BACTERIA,URINE MODERATE /HPF (0-FEW); RBC,URINE 0 /HPF (0-2)
[2018-09-15] MEDS: IV NORMAL SALINE 1000ML BAG 1,000 ML IV ONE (13:45)
[2018-09-15 14:03] VITALS: BP 151/70
--- NOTE | 2018-09-15 14:58 | EKG ---
[facility] [address] [place] [id number] Test Date: 2018-09-15 Test Time: 11:01:15 Pat Name: ANDREAS LIAO Department: Room: Gender: F Wire Stitcher: [place] : 1965 Requested By: CHANNING MUNROE Order Number: [id number] Reading MD: Titi Ann MD Measurements Intervals [place] Rate: 73 P: SD: QRS: 24 QRSD: 84 T: 35 QT: 358 QTc: 398 Interpretive Statements SR Electronically Signed On 09-18-2018 16:08:28 CDT by Titi Ann MD
[2018-10-17] MEDS ORDERED: ATOR40TA59 PO (10:39)
[2018-10-17] MEDS ORDERED: ASPI-612 PO (10:44)
== END 2018-09-15 14:21 | disposition home or self-care (01) ==
LOC: ER 10:54
DX: R06.09 Other forms of dyspnea (principal); E87.1 Hypo-osmolality and hyponatremia; R07.89 Other chest pain; J45.909 Unspecified asthma, uncomplicated; F31.9 Bipolar disorder, unspecified; E78.00 Pure hypercholesterolemia, unspecified; I10 Essential (primary) hypertension; E11.39 Type 2 diabetes mellitus with other diabetic ophthalmic complication; H42 Glaucoma in diseases classified elsewhere; Z90.49 Acquired absence of other specified parts of digestive tract; Z90.89 Acquired absence of other organs; Z98.51 Tubal ligation status; Z88.1 Allergy status to other antibiotic agents; Z88.8 Allergy status to other drugs, medicaments and biological substances; Z91.09 Other allergy status, other than to drugs and biological substances
CPT/HCPCS: 36415; 71045; 71275; 80053; 81001; 82553; 83690; 83735; 83880; 84484; 85025; 85379; 85610; 85730; 87086; 93005; 99284; J7030; Q9967

== ENCOUNTER 2018-10-15 10:53 | Inpatient (IN) | payer BC ==
[~2018-10-15] VITALS: Ht 152.4 cm; Wt 117.5 kg
[2018-10-15] VITALS (20 sets, daily range): BP systolic 83–147; BP diastolic 46–70
--- NOTE | 2018-10-15 11:24 | PHYS DOC ---
Past Medical History Past Medical History: Asthma, Bipolar, Diabetes-Type II, Glaucoma, High Cholesterol, Hypertension, Other Additional Past Medical Histor: GASTROPARESIS, SLEEP APNEA, GLAUCOMA Past Surgical History: Cholecystectomy, Tonsillectomy, Tubal ligation, Other Additional Past Surgical Histo: CRYO SURG,D&C,THERMOABLATION, CARDIAC CATH Alcohol Use: None Drug Use: None Adult General Chief Complaint Chief Complaint: MECHANICAL FALL HPI HPI Patient is a 52 year old since the ER for evaluation. 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 Patient ports at approximately 9:30 AM she had acute onset of severe vertigo, diplopia and sensation of her balance being off. Patient denies any previous episodes. Symptoms were severe and patient fell with injury to left upper arm. Patient denies any ocular pain. Patient does report mild headache behind her eyes. Patient largely with complaint of significant dizziness/vertigo. No nausea , vomiting. Patient does have history of migraines. She has never had any complicated migraines before with neurological findings. She does have some memory loss for which she is following with a neurologist. She last saw her neurologist approximately 4 days ago. Review of Systems Review of Systems Constitutional: Denies fever or chills [] Eyes: Diplopia present, no ocular pain, no discharge. HENT: Denies nasal congestion or sore throat [] Respiratory: Denies cough or shortness of breath [] Cardiovascular: No chest pain, no palpitations, no orthopnea, GI: Denies abdominal pain, nausea, vomiting, bloody stools or diarrhea [] : Denies dysuria or hematuria [] Musculoskeletal: Musculoskeletal pain present. Integument: Denies rash or skin lesions [] Neurologic: Headache present, no sensory changes, dizziness present. Endocrine: Denies polyuria or polydipsia [] All other systems were reviewed and found to be within normal limits, except as documented in this note. Current Medications Current Medications Current Medications Medications (Trade) Dose Ordered Sig/Karol Start Time Stop Time Status Last Admin Dose Admin Alteplase, Recombinant 0 ml @ 0 mls/hr Q1H 10/15/18 11:45 10/15/18 11:46 DC 10/15/18 12:03 81 MLS/HR Info (CONTRAST GIVEN -- Rx MONITORING) 1 each PRN DAILY PRN 10/15/18 13:00 10/17/18 12:59 Iohexol (Omnipaque 350 Mg/ml) 75 ml 1X ONCE 10/15/18 13:00 10/15/18 13:01 Labetalol HCl (Normodyne Iv Push) 10 mg PRN Q10MIN PRN 10/15/18 11:45 Morphine Sulfate (Morphine Sulfate) 2 mg PRN Q2HR PRN 10/15/18 13:00 10/16/18 12:59 UNV Nicardipine HCl 50 mg/Sodium Chloride 250 ml @ 25 mls/hr CONT PRN PRN 10/15/18 11:45 Sodium Chloride 50 ml @ 0 mls/hr 1X ONCE 10/15/18 11:45 10/15/18 11:46 DC 10/15/18 12:52 50 MLS/HR Allergies Allergies Allergies Coded Allergies Type Severity Reaction Last Updated Verified erythromycin base Allergy Intermediate 12/13/16 No insulin aspart Allergy Intermediate 09/01/18 Yes insulin aspart protamine human Allergy Intermediate 09/01/18 Yes lithium Allergy Intermediate 09/01/18 Yes Physical Exam Physical Exam Constitutional: obese HENT: Normocephalic, atraumatic, Eyes: PERRLA, EOMI Neck: Normal range of motion, no tenderness, supple, no stridor. [] Cardiovascular:Heart rate regular rhythm, no murmur [] Lungs & Thorax: Bilateral breath sounds clear to auscultation [] Abdomen: Bowel sounds normal, soft, no tenderness, no masses, no pulsatile masses. [] Skin: Small area of ecchymosis and abrasion to left posterior upper arm. Back: No tenderness, no CVA tenderness. [] Extremities: no tenderness, ROM intact, no edema. No obvious swelling to joints or extremities particularly left upper extremity. Patient has intact range of motion the left shoulder, elbow, wrist. [] Neurologic: Alert and oriented X 3, patient does not have any obvious ocular motor palsy on my examination of her EOM. At midline and her gaze does seem slightly offset but is difficult to tell which I is affecting it. Almost 2 through 12 are otherwise intact. Patient has intact sensation to all 4 extremities. Patient has intact motor strength in all 4 extremities. Patient has mild ataxia to right upper extremity. She has intact cerebellar function to left upper extremity and bilateral left lower extremities with finger to nose and bilateral heel to christian. Psychologic: Affect normal, judgement normal, mood normal. [] Current Patient Data Vital Signs Vital Signs Date Time Temp Pulse Resp B/P (MAP) Pulse Ox O2 Delivery O2 Flow Rate FiO2 10/15/18 11:08 97.6 77 20 174/76 (108) 97 Room Air 97.6 Lab Values Laboratory Tests Test 10/15/18 11:36 10/15/18 11:50 Glucose (Fingerstick) 212 mg/dL (70-99) H White Blood Count 9.6 x10^3/uL (4.0-11.0) Red Blood Count 4.02 x10^6/uL (3.50-5.40) Hemoglobin 12.6 g/dL (12.0-15.5) Hematocrit 37.8 % (36.0-47.0) Mean Corpuscular Volume 94 fL (79-100) Mean Corpuscular Hemoglobin 31 pg (25-35) Mean Corpuscular Hemoglobin Concent 33 g/dL (31-37) Red Cell Distribution Width 13.3 % (11.5-14.5) Platelet Count 320 x10^3/uL (140-400) Prothrombin Time 14.1 SEC (11.7-14.0) H Prothrombin Time INR 1.1 (0.8-1.1) PTT 30 SEC (24-38) Sodium Level 135 mmol/L (136-145) L Potassium Level 3.8 mmol/L (3.5-5.1) Chloride Level 96 mmol/L (98-107) L Carbon Dioxide Level 31 mmol/L (21-32) Anion Gap 8 (6-14) Blood Urea Nitrogen 15 mg/dL (7-20) Creatinine 0.8 mg/dL (0.6-1.0) Estimated GFR (Cockcroft-Gault) 75.3 Glucose Level 222 mg/dL (70-99) H Calcium Level 9.1 mg/dL (8.5-10.1) Laboratory Tests 10/15/18 11:50 Laboratory Tests 10/15/18 11:50 EKG EKG 11:09 sinus rhythm, no significant ST segment changes, heart rate 73.[] Radiology/Procedures Radiology/Procedures Impression: 1. No acute intracranial abnormality is identified by CT. FOR INTERNAL CODING PURPOSES Critical result: Findings discussed with STACY MARAVILLA at 10/15/2018 11:39 AM. RESULT CODE: (C) Electronically signed by: Eder Rubio MD (10/15/2018 11:39 AM) [id number][] Course & Med Decision Making Course & Med Decision Making Pertinent Labs and Imaging studies reviewed. (See chart for details) []1124: Activated as code stroke on my evaluation. Case discussed Dr. Siddiqui emergency response coordinator for neurology agrees with plan for TPA if patient does not have any contraindications. 1145 CT head with no acute findings. Discussed with patient and her significant other at bedside my concerns that she is having an acute stroke. Discussed head CT findings and high clinical concern and discussion with neurologist with recommendations for TPA. Discussed TPA indications, contraindications, risks at length with patient. Discussed the risks including , conversion to hemorrhage, life-threatening bleed, bleeding, anaphylaxis. Patient and her significant other would like to proceed with TPA. Patient does report that she had a approximately one month ago with axis to her right radial. The site was examined and she did not have any hematoma or signs of active bleeding prior to TPA being given. Patient did have a small bruise with abrasions to left upper arm from resulting fall from her stroke. Both of these are at compressible site and do not exclude the patient from getting TPA. 12:52: TPA completed. Patient has had some very minor bleeding from the abrasion to her left upper arm this was stressed with a compressive dressing. She has also had some very minor bleeding from her right great toe around the nail. She also now has some hematomas to her abdominal wall. Stating that she has had some abdominal wall trauma from "bumping into things" over the past few days. She denies any significant abdominal trauma including high mechanism. These areas are not significantly tender.. She is having a little bit of a headache that is maybe mildly increased since her arrival. We'll give some more pain medication. Dr. Olmedo is at bedside evaluating the patient. She will go to the ICU for continued critical care. She has not required any interventions on her blood pressure. She will go for CT angiogram of her head and her neck per recommendation by Dr. Silva prior to going to the ICU. Dragon Disclaimer Dragon Disclaimer This electronic medical record was generated, in whole or in part, using a voice recognition dictation system. Departure Departure Impression: Primary Impression: Acute CVA (cerebrovascular accident) Additional Impressions: Diplopia Vertigo Disposition: ADMITTED INPATIENT Admitting Physician: Alvarez Kimbrough Condition: CRITICAL Referrals: ELEAZAR LEO MD (PCP) Critical Care Time Critical care time was [34] minutes exclusive of procedures. Assessment and chart review, repetitive patient evaluation, discussion with consultants, documentation, results reviewed. Problem Qualifiers STACY MARAVILLA DO Oct 15, 2018 11:24
--- NOTE | 2018-10-15 11:42 | RAD ---
CT CODE STROKE HEAD WO History: DOUBLE VISION Comparison: MRI brain January 16, 2018. Technique: Noncontrast CT imaging was performed of the head. Exposure: One or more of the following individualized dose reduction techniques were utilized for this examination: 1. Automated exposure control 2. Adjustment of the mA and/or kV according to patient size 3. Use of iterative reconstruction technique. Findings: No acute extra-axial or parenchymal hemorrhage is identified. There is no significant intra-axial mass effect, midline shift, or extra-axial fluid collection. The zavala-white differentiation of the major vascular territories is preserved. The ventricles, sulci, and cisterns are within normal limits in size and configuration. The mastoid air cells and the visualized paranasal sinuses are aerated. No acute calvarial abnormality is identified. Impression: 1. No acute intracranial abnormality is identified by CT. FOR INTERNAL CODING PURPOSES Critical result: Findings discussed with STACY MARAVILLA at 10/15/2018 11:39 AM. RESULT CODE: (C) Electronically signed by: Eder Rubio MD (10/15/2018 11:39 AM) [id number]
[2018-10-15] MEDS ORDERED: ALTEPLASE 9 MG IV ONE (11:45)
[2018-10-15] MEDS ORDERED: ALTEPLASE 81 MG IV SCH (11:45)
[2018-10-15] MEDS ORDERED: IV NORMAL SALINE 50ML 50 ML IV ONE (11:45)
[2018-10-15] MEDS ORDERED: LABETALOL 20 MG/4 ML DISP.SYRIN. IVP PRN ×2 (11:45→14:00)
[2018-10-15 12:05] LABS: HEMATOCRIT 37.8 % (36.0-47.0); HEMOGLOBIN 12.6 g/dL (12.0-15.5); RED BLOOD COUNT 4.02 x10^6/uL (3.50-5.40); RED CELL DISTRIBUTION WIDTH 13.3 % (11.5-14.5); WHITE BLOOD COUNT 9.6 x10^3/uL (4.0-11.0)
[2018-10-15 12:15] LABS: PROTHROMBIN TIME PATIENT 14.1 SEC (11.7-14.0)
[2018-10-15 12:16] LABS: CALCIUM 9.1 mg/dL (8.5-10.1); CREATININE 0.8 mg/dL (0.6-1.0); GFR 75.3; POTASSIUM 3.8 mmol/L (3.5-5.1)
[2018-10-15] MEDS ORDERED: MORPHINE SULFATE 2 MG/ML VIAL. IV ONE (13:00)
[2018-10-15] MEDS ORDERED: MORPHINE SULFATE 2 MG/ML VIAL. IV PRN (13:00)
[2018-10-15] MEDS ORDERED: CONTRAST GIVEN. MC PRN (13:00)
[2018-10-15] MEDS ORDERED: IOHEXOL 350 MG/ML 100 ML VIAL. IV ONE (13:00)
--- NOTE | 2018-10-15 13:06 | PDOC1 ---
History and Physical Date of Admission Date of Admission DATE: 10/15/18 TIME: 13:05 Identification/Chief Complaint Chief Complaint SEEN IN ER, at approximately 9:30 AM she NOTED acute onset of severe vertigo, diplopia and sensation of her balance being off. Patient denies any previous episodes. Symptoms were severe and patient fell with injury to left upper arm. Patient denies any ocular pain. Patient does report mild headache behind her eyes. Patient largely with complaint of significant dizziness/vertigo. No nausea , vomiting. Patient does have history of migraines. Past Medical History Past Medical History Past Medical History Past Medical History Past Medical History: Asthma, Bipolar, Diabetes-Type II, Glaucoma, High Cholesterol, Hypertension, Other Additional Past Medical Histor: GASTROPARESIS, SLEEP APNEA, GLAUCOMA Past Surgical History: Cholecystectomy, Tonsillectomy, Tubal ligation, Other Additional Past Surgical Histo: CRYO SURG,D&C,THERMOABLATION, CARDIAC CATH Alcohol Use: None Drug Use: None Cardiovascular: HTN, Hyperlipidemia Pulmonary: Asthma, Other CENTRAL NERVOUS SYSTEM: Periperal neuropathy GI: No pertinent hx Heme/Onc: No pertinent hx Hepatobiliary: Other Psych: Anxiety, Bipolar, Depression, Other Musculoskeletal: Osteoarthritis Rheumatologic: No pertinent hx Infectious disease: No pertinent hx Renal/: No pertinent hx Endocrine: Diabetes Past Surgical History Past Surgical History: Cholecystectomy, Tubal Ligation, Tonsillectomy Family History Family History PAST MEDICAL HISTORY: Asthma, bipolar, diabetes, glaucoma, hypertension, hyperlipidemia, gastroparesis, obstructive sleep apnea, cholecystectomy, tonsillectomy, tubal ligation, cryosurgery, D and C, thermal ablation. ALLERGIES: ERYTHROMYCIN, INSULIN. LITHIUM. FAMILY HISTORY: Coronary artery disease. SOCIAL HISTORY: She does not drink, smoke or take drugs. She is . Family History: Coronary Artery Disease, Hypertension Social History Smoke: No ALCOHOL: none Drugs: None Current Medications Current Medications Current Medications Alteplase, Recombinant 0 ml @ 0 mls/hr 1X ONCE IV Last administered on at 11:57; Start 10/15/18 at 11:45; Stop 10/15/18 at 11:46; Status DC Alteplase, Recombinant 0 ml @ 0 mls/hr Q1H IV Last administered on 10/15/18at 12 :03; Start 10/15/18 at 11:45; Stop 10/15/18 at 11:46; Status DC Sodium Chloride 50 ml @ 0 mls/hr 1X ONCE IV Last administered on 10/15/18at 12: 52; Start 10/15/18 at 11:45; Stop 10/15/18 at 11:46; Status DC Labetalol HCl (Normodyne Iv Push) 10 mg PRN Q10MIN PRN IVP HYPERTENSION, SEE COMMENTS; Start 10/15/18 at 11:45 Nicardipine HCl 50 mg/Sodium Chloride 250 ml @ 25 mls/hr CONT PRN PRN IV HYPERTENSION, SEE COMMENTS; Start 10/15/18 at 11:45 Iohexol (Omnipaque 350 Mg/ml) 75 ml 1X ONCE IV ; Start 10/15/18 at 13:00; Stop 10/15/18 at 13:01; Status DC Info (CONTRAST GIVEN -- Rx MONITORING) 1 each PRN DAILY PRN MC SEE COMMENTS; Start 10/15/18 at 13:00; Stop 10/17/18 at 12:59 Morphine Sulfate (Morphine Sulfate) 2 mg PRN Q2HR PRN IV PAIN; Start 10/15/18 at 13:00; Stop 10/16/18 at 12:59 Morphine Sulfate (Morphine Sulfate) 2 mg 1X ONCE IV ; Start 10/15/18 at 13:00; Stop 10/15/18 at 13:01; Status DC Active Scripts Active Reported Novolin N (Nph, Human Insulin Isophane) 100 Unit/1 Ml Vial 31 Unit SQ [id number] Robaxin-750 (Methocarbamol) 750 Mg Tablet 1 Tab PO TID Gabapentin (Gabapentin) 300 Mg Capsule 300 Mg PO BID Jeannine Allergy (Fexofenadine Hcl) 180 Mg Tablet 1 Tab PO DAILY Geodon (Ziprasidone Hcl) 80 Mg Capsule 1 Cap PO BID Atorvastatin Calcium 10 Mg Tablet 10 Mg PO HS Nuvigil (Armodafinil) 250 Mg Tablet 1 Tab PO DAILYWBKFT Glimepiride 4 Mg Tablet 1 Tab PO DAILY Losartan-Hctz 50-12.5 Mg Tab (Losartan/Hydrochlorothiazide) 1 Each Tablet 1 Tab PO DAILY Proair Hfa Inhaler (Albuterol Sulfate) 8.5 Gm Hfa.aer.ad 1 Puff INH PRN Q6HRS PRN Trileptal (Oxcarbazepine) 150 Mg Tablet 3 Tab PO BID Cymbalta (Duloxetine Hcl) 20 Mg Capsule.dr 120 Mg PO DAILY Trazodone Hcl 300 Mg Tablet 200 Mg PO QHS Allergies Allergies: Coded Allergies: erythromycin base (Unverified Allergy, Intermediate, 12/13/16) insulin aspart (Verified Allergy, Intermediate, 09/01/18) insulin aspart protamine human (Verified Allergy, Intermediate, 09/01/18) lithium (Verified Allergy, Intermediate, 09/01/18) ROS Review of System Review of Systems Review of Systems Constitutional: Denies fever or chills [] Eyes: Diplopia present, no ocular pain, no discharge. HENT: Denies nasal congestion or sore throat [] Respiratory: Denies cough or shortness of breath [] Cardiovascular: No chest pain, no palpitations, no orthopnea, GI: Denies abdominal pain, nausea, vomiting, bloody stools or diarrhea [] : Denies dysuria or hematuria [] Musculoskeletal: Musculoskeletal pain present. Integument: Denies rash or skin lesions [] Neurologic: Headache present, no sensory changes, dizziness present. Endocrine: Denies polyuria or polydipsia [] 14 PT systems were reviewed and found to be within normal limits, except as documented Physical Exam Physical Exam Physical Exam Physical Exam Constitutional: obese HENT: Normocephalic, atraumatic, Eyes: PERRLA, EOMI Neck: Normal range of motion, no tenderness, supple, no stridor. [] Cardiovascular:Heart rate regular rhythm, no murmur [] Lungs & Thorax: Bilateral breath sounds clear to auscultation [] Abdomen: Bowel sounds normal, soft, no tenderness, no masses, no pulsatile masses. [] Skin: Small area of ecchymosis and abrasion to left posterior upper arm. Back: No tenderness, no CVA tenderness. [] Extremities: no tenderness, ROM intact, no edema. No obvious swelling to joints or extremities particularly left upper extremity. Patient has intact range of motion the left shoulder, elbow, wrist. [] Neurologic: Alert and oriented X 3, patient does not have any obvious ocular motor palsy on my examination of her EOM. At midline and her gaze does seem slightly offset but is difficult to tell which I is affecting it. Almost 2 through 12 are otherwise intact. Patient has intact sensation to all 4 extremities. Patient has intact motor strength in all 4 extremities. Patient has mild ataxia to right upper extremity. She has intact cerebellar function to left upper extremity and bilateral left lower extremities with finger to nose and bilateral heel to christian. Psychologic: Affect normal, judgement normal, mood normal. [] General: Alert, Oriented X3, Cooperative, No acute distress HEENT: Atraumatic, PERRLA Lungs: Clear to auscultation Breasts: Not examined Abdomen: Soft Rectal Exam: not examined Extremities: No cyanosis Skin: No significant lesion Neuro: Normal speech Vitals Vitals Vital Signs Date Time Temp Pulse Resp B/P (MAP) Pulse Ox O2 Delivery O2 Flow Rate FiO2 10/15/18 11:08 97.6 77 20 174/76 (108) 97 Room Air 97.6 Labs Labs CTA head and neck History: Double vision, fall, dizziness Technique: After bolus of intravenous contrast, volumetric CT data acquisition was acquired of the head and neck. Multiplanar reconstruction images to include MIP and 3-D reconstruction images are submitted. Exposure: One or more of the following individualized dose reduction techniques were utilized for this examination: 1. Automated exposure control 2. Adjustment of the mA and/or kV according to patient size 3. Use of iterative reconstruction technique. Comparison: CT head earlier the same day Any determination of stenosis is based on NASCET criteria. CTA head: Findings: Contrast bolus opacification of the intracranial vasculature is suboptimal. Evaluation of the petrous internal carotid arteries bilaterally is limited due to limited contrast opacification. There is small patent anterior communicating artery. Both vertebral arteries constitute the basilar artery. There is visualization of right PICA, not well seen on the left on this exam. AICAs are poorly visualized this exam. Superior cerebellar arteries are faintly visualized bilaterally. No significant posterior communicating arteries are visualized on either side. There is visualization of segments of bilateral anterior, middle, and posterior cerebral arteries, no obvious focal filling defect of the larger intracranial vessels. Of the visualized intracranial vasculature, no significant focal stenosis or aneurysm is identified. Impression: 1. Of the visualized intracranial vasculature, no significant focal stenosis or focal filling defect is identified. Exam is limited due to suboptimal contrast opacification of the intracranial vasculature, especially limited evaluation of the petrous internal carotid arteries and smaller intracranial vessels. Neck CTA: Findings: There is some motion. Contrast bolus in the arteries is suboptimal. There are normal anatomic origins of the great vessels. No convincing flow limiting dissection flap is identified. No significant focal stenosis is identified of the cervical arterial vasculature. Impression: 1. No significant focal stenosis or convincing flow limiting dissection flap is identified of the cervical arterial vasculature. However contrast bolus is suboptimal. Electronically signed by: Eder Rubio MD (10/15/2018 2:21 PM) [facility] Laboratory Tests Test 10/15/18 11:36 10/15/18 11:50 10/15/18 12:57 Glucose (Fingerstick) 212 mg/dL (70-99) 219 mg/dL (70-99) White Blood Count 9.6 x10^3/uL (4.0-11.0) Red Blood Count 4.02 x10^6/uL (3.50-5.40) Hemoglobin 12.6 g/dL (12.0-15.5) Hematocrit 37.8 % (36.0-47.0) Mean Corpuscular Volume 94 fL (79-100) Mean Corpuscular Hemoglobin 31 pg (25-35) Mean Corpuscular Hemoglobin Concent 33 g/dL (31-37) Red Cell Distribution Width 13.3 % (11.5-14.5) Platelet Count 320 x10^3/uL (140-400) Prothrombin Time 14.1 SEC (11.7-14.0) Prothromb Time International Ratio 1.1 (0.8-1.1) Activated Partial Thromboplast Time 30 SEC (24-38) Sodium Level 135 mmol/L (136-145) Potassium Level 3.8 mmol/L (3.5-5.1) Chloride Level 96 mmol/L (98-107) Carbon Dioxide Level 31 mmol/L (21-32) Anion Gap 8 (6-14) Blood Urea Nitrogen 15 mg/dL (7-20) Creatinine 0.8 mg/dL (0.6-1.0) Estimated GFR (Cockcroft-Gault) 75.3 Glucose Level 222 mg/dL (70-99) Calcium Level 9.1 mg/dL (8.5-10.1) Laboratory Tests Test 10/15/18 11:36 10/15/18 11:50 10/15/18 12:57 Glucose (Fingerstick) 212 mg/dL (70-99) 219 mg/dL (70-99) White Blood Count 9.6 x10^3/uL (4.0-11.0) Red Blood Count 4.02 x10^6/uL (3.50-5.40) Hemoglobin 12.6 g/dL (12.0-15.5) Hematocrit 37.8 % (36.0-47.0) Mean Corpuscular Volume 94 fL (79-100) Mean Corpuscular Hemoglobin 31 pg (25-35) Mean Corpuscular Hemoglobin Concent 33 g/dL (31-37) Red Cell Distribution Width 13.3 % (11.5-14.5) Platelet Count 320 x10^3/uL (140-400) Prothrombin Time 14.1 SEC (11.7-14.0) Prothromb Time International Ratio 1.1 (0.8-1.1) Activated Partial Thromboplast Time 30 SEC (24-38) Sodium Level 135 mmol/L (136-145) Potassium Level 3.8 mmol/L (3.5-5.1) Chloride Level 96 mmol/L (98-107) Carbon Dioxide Level 31 mmol/L (21-32) Anion Gap 8 (6-14) Blood Urea Nitrogen 15 mg/dL (7-20) Creatinine 0.8 mg/dL (0.6-1.0) Estimated GFR (Cockcroft-Gault) 75.3 Glucose Level 222 mg/dL (70-99) Calcium Level 9.1 mg/dL (8.5-10.1) Images Images CT CODE STROKE HEAD WO History: DOUBLE VISION Comparison: MRI brain January 16, 2018. Technique: Noncontrast CT imaging was performed of the head. Exposure: One or more of the following individualized dose reduction techniques were utilized for this examination: 1. Automated exposure control 2. Adjustment of the mA and/or kV according to patient size 3. Use of iterative reconstruction technique. Findings: No acute extra-axial or parenchymal hemorrhage is identified. There is no significant intra-axial mass effect, midline shift, or extra-axial fluid collection. The zavala-white differentiation of the major vascular territories is preserved. The ventricles, sulci, and cisterns are within normal limits in size and configuration. The mastoid air cells and the visualized paranasal sinuses are aerated. No acute calvarial abnormality is identified. Impression: 1. No acute intracranial abnormality is identified by CT. FOR INTERNAL CODING PURPOSES Critical result: : 1965LOCATION: [facility] MRIAGE: 52 SEX: F EXAM STATUS: REG CLI ORD. PHYSICIAN: LAINE SOLIZ MD REASON: MILD COGNITIVE IMPAIRMENT PROCEDURE: BRAIN W/O CONTRAST MRI of the brain without contrast 01/16/2018 Clinical History: Mild cognitive impairment. Progressive memory loss for 2 years. Lack of concentration. Headaches. Technique: Unenhanced T1-weighted sagittal and axial, T2-weighted axial and coronal and FLAIR, gradient echo and diffusion-weighted axial images of the brain were obtained. Findings: There is a study is dated 12/29/2006. The ventricles and sulci are within normal limits in size and configuration. Patchy and a few small scattered areas of increased signal intensity are seen within the periventricular and subcortical white matter of both cerebral hemispheres on the FLAIR and T2-weighted images consistent most likely with areas of minimal small vessel ischemic disease. These have not significantly changed. No acute parenchymal abnormality is seen. No extra-axial fluid collection is seen. There is no MRI evidence of acute ischemia/infarction. Mild mucosal thickening in seen scattered throughout the paranasal sinuses. There are minimal bilateral mastoid effusions. Normal flow voids are seen within the major vascular structures surrounding the brain parenchyma. Impression: No acute parenchymal abnormality is seen. Electronically signed by: Jareth Silveira MD (01/16/2018 5:36 PM) [facility] The patient is a 52-year-old female with severe hypertension and significant episodes of relatively severe chest discomfort. Patient ruled out for myocardial infarction but continue have episodes of chest pain. She has risk factors of diabetes mellitus and hyperlipidemia. Cardiac catheterization was recommended. Risks and benefits were discussed. The patient agreed to proceed with catheterization and possible intervention. After informed consent was obtained the patient was brought to the heart catheterization lab. The area of the right radial artery was prepared in the usual manner with Betadine, sterile draping and local anesthetic after acceptable Nehemias's test. A quick catheter device was used to enter the right radial artery, a wire placed and a 6 Faroese sheath placed over the wire. The usual mixture of heparin and anti-spasm medication was administered. Using a J- wire a 6 Faroese JL4 diagnostic catheter was advanced ascending aorta. It was used to engage the left coronary system and sequential injections in various views were obtained. Using an [id number]-[id number] exchange a 6 Faroese JR4 diagnostic catheter was advanced to the ascending aorta. It crossed the aortic root and pressures and pullback pressures were recorded. It was then used to engage the right coronary artery and sequential injections in various views were obtained. A pigtail catheter was then placed to the aortic root. A 30 [place] aortic root injection was performed. The catheter was removed from the patient. The sheath was removed from the patient and the puncture site sealed in the usual manner using TR band. The patient was moved to the holding area in stable condition. Findings. Hemodynamics. LV pressure of 142/16. Aortic root pressure of 140/88. Coronaries. Left main. The left main was a moderate size vessel with no lesions. Left anterior descending. The LAD was a moderately large vessel. It had a mid smooth 10-15% lesion. Left circumflex. The left circumflex is a moderate size dominant vessel. It had no lesions. Right coronary artery the right coronary was a moderate size vessel with a small distal vessel. It had no lesions. Aortic root injection. The aortic root appeared normal with no dilatation and no significant aortic insufficiency. <Conclusion> Minimal single-vessel coronary disease with no lesions greater than 20%. Normal aortic root. Signed by : Navneet Looney MD Electronically Approved : 09/02/2018 15:25:51 VTE Prophylaxis Ordered VTE Prophylaxis Devices: Yes VTE Pharmacological Prophylaxi: Yes Assessment/Plan Assessment/Plan IMPRESSION 1. Code stroke 2. high clinical concern and discussion with neurologist with recommendations for TPA. 3. Acute CVA (cerebrovascular accident) 4. Diplopia 5. Vertigo 6. morbid obesity 7, diabetes 8. Minimal single-vessel coronary disease with no lesions greater than 20% .recent cath 2018 9. hx migrane headaches plan icu bed stat neurology consult neurochecks q hr accuchecks PT/OT/ ST stroke protocol 36 MIN CC TIME GABINO LONDON MD Oct 15, 2018 13:06
[2018-10-15] MEDS ORDERED: IV NORMAL SALINE 1000ML BAG 1,000 ML IV SCH (13:19)
[2018-10-15] MEDS ORDERED: ALBUTEROL SULFATE 2.5 MG/3 ML NEBU. INH PRN (13:30)
[2018-10-15] MEDS ORDERED: ACETAMINOPHEN 325 MG TABLET. PO PRN (14:00)
[2018-10-15] MEDS ORDERED: ACETAMINOPHEN 325 MG SUPP.RECT. PR PRN (14:00)
--- NOTE | 2018-10-15 14:08 | EKG ---
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
--- NOTE | 2018-10-15 14:11 | PDOC2 ---
NEUROLOGY CONSULT Date of Admission Date of Admission DATE: 10/15/18 TIME: 13:59 Reason for Consult Reason for Consult: Stroke symptoms Referring Physician Referring Physician: Dr. Olmedo PCP: Dr. Sheriff Source Source: Caregiver, Chart review, Patient History of Present Illness History of Present Illness The patient is a 52-year-old right-handed female whom I follow the office regarding diabetic polyneuropathy, bilateral meralgia paresthetica, mild cognitive impairment, hypersomnia due to sleep apnea, and history of migraines. She was getting ready for work at about 9:30 AM this morning when she noticed the acute onset of vertigo and diplopia. She did not have a headache initially but now has one. She denies any prior history of stroke. She had a dizzy spell about 2 days ago as well. She did fall this morning but did not hit her head. There is no prior history of stroke, seizure, or head injury. She has had diplopia and dizziness in the past. Past Medical History Cardiovascular: Other (Obstructive sleep apnea) CENTRAL NERVOUS SYSTEM: Dementia ( mild cognitive impairment), Periperal neuropathy GI: Other ( gastroparesis) Psych: Anxiety, Depression ENT: Other ( glaucoma) Endocrine: Diabetes Past Surgical History Past Surgical History: Cholecystectomy, Tubal Ligation, Tonsillectomy, Other ( right ankle fracture, bilateral carpal tunnel) Family History Family History: CAD, Other Social History Social History Magui, non-smoker, no alcohol, on disability Current Medications Current Medications Current Medications Alteplase, Recombinant 0 ml @ 0 mls/hr 1X ONCE IV Last administered on at 11:57; Start 10/15/18 at 11:45; Stop 10/15/18 at 11:46; Status DC Alteplase, Recombinant 0 ml @ 0 mls/hr Q1H IV Last administered on 10/15/18at 12 :03; Start 10/15/18 at 11:45; Stop 10/15/18 at 11:46; Status DC Sodium Chloride 50 ml @ 0 mls/hr 1X ONCE IV Last administered on 10/15/18at 12: 52; Start 10/15/18 at 11:45; Stop 10/15/18 at 11:46; Status DC Labetalol HCl (Normodyne Iv Push) 10 mg PRN Q10MIN PRN IVP HYPERTENSION, SEE COMMENTS; Start 10/15/18 at 11:45 Nicardipine HCl 50 mg/Sodium Chloride 250 ml @ 25 mls/hr CONT PRN PRN IV HYPERTENSION, SEE COMMENTS; Start 10/15/18 at 11:45 Iohexol (Omnipaque 350 Mg/ml) 75 ml 1X ONCE IV ; Start 10/15/18 at 13:00; Stop 10/15/18 at 13:01; Status DC Info (CONTRAST GIVEN -- Rx MONITORING) 1 each PRN DAILY PRN MC SEE COMMENTS; Start 10/15/18 at 13:00; Stop 10/17/18 at 12:59 Morphine Sulfate (Morphine Sulfate) 2 mg PRN Q2HR PRN IV PAIN; Start 10/15/18 at 13:00; Stop 10/16/18 at 12:59 Morphine Sulfate (Morphine Sulfate) 2 mg 1X ONCE IV ; Start 10/15/18 at 13:00; Stop 10/15/18 at 13:01; Status DC Sodium Chloride 1,000 ml @ 100 mls/hr Q10H IV ; Start 10/15/18 at 13:19; Stop 10/15/18 at 23:18 Albuterol Sulfate (Ventolin Neb Soln) 2.5 mg PRN Q6HRS PRN INH SHORTNESS OF BREATH; Start 10/15/18 at 13:30 Atorvastatin Calcium (Lipitor) 10 mg HS PO ; Start 10/15/18 at 21:00 Duloxetine HCl (Cymbalta) 120 mg DAILY PO ; Start 10/15/18 at 14:00 Cetirizine HCl (ZyrTEC) 10 mg DAILY PO ; Start 10/15/18 at 15:00 Labetalol HCl (Normodyne Iv Push) 10 mg PRN Q10MIN PRN IVP HYPERTENSION, SEE COMMENTS; Start 10/15/18 at 14:00; Status UNV Nicardipine HCl 50 mg/Sodium Chloride 250 ml @ 25 mls/hr CONT PRN PRN IV HYPERTENSION, SEE COMMENTS; Start 10/15/18 at 14:00; Status UNV Acetaminophen (Tylenol) 650 mg PRN Q6HRS PRN PO MILD PAIN / TEMP; Start at 14:00; Status UNV Acetaminophen (Tylenol Supp) 325 mg PRN Q6HRS PRN WI MILD PAIN / TEMP; Start at 14:00; Status UNV Ondansetron HCl (Zofran) 4 mg PRN Q6HRS PRN IV NAUSEA/VOMITING; Start 10/15/18 at 14:00; Status UNV Active Scripts Active Reported Novolin N (Nph, Human Insulin Isophane) 100 Unit/1 Ml Vial 31 Unit SQ [id number] Robaxin-750 (Methocarbamol) 750 Mg Tablet 1 Tab PO TID Gabapentin (Gabapentin) 300 Mg Capsule 300 Mg PO BID Jeannine Allergy (Fexofenadine Hcl) 180 Mg Tablet 1 Tab PO DAILY Geodon (Ziprasidone Hcl) 80 Mg Capsule 1 Cap PO BID Atorvastatin Calcium 10 Mg Tablet 10 Mg PO HS Nuvigil (Armodafinil) 250 Mg Tablet 1 Tab PO DAILYWBKFT Glimepiride 4 Mg Tablet 1 Tab PO DAILY Losartan-Hctz 50-12.5 Mg Tab (Losartan/Hydrochlorothiazide) 1 Each Tablet 1 Tab PO DAILY Proair Hfa Inhaler (Albuterol Sulfate) 8.5 Gm Hfa.aer.ad 1 Puff INH PRN Q6HRS PRN Trileptal (Oxcarbazepine) 150 Mg Tablet 3 Tab PO BID Cymbalta (Duloxetine Hcl) 20 Mg Capsule.dr 120 Mg PO DAILY Trazodone Hcl 300 Mg Tablet 200 Mg PO QHS Allergies Allergies: Coded Allergies: erythromycin base (Unverified Allergy, Intermediate, 12/13/16) insulin aspart (Verified Allergy, Intermediate, 09/01/18) insulin aspart protamine human (Verified Allergy, Intermediate, 09/01/18) lithium (Verified Allergy, Intermediate, 09/01/18) ROS Review of System Negative for fever, chills, weight loss, shortness of breath, chest pain, indigestion, hematochezia, melena, and dysuria. Full 14-point review of systems is negative. Physical Exam Physical Examination General: Well-developed, well-nourished white female in no acute distress HEENT: Normocephalic andatraumatic.Temporal arteriespulsatile and nontender. Neck: Supple without bruit, no meningismus Musculoskeletal: Stability:see neurologic. Gait exam:see neurologic. Tone:see neurologic. Strength:see neurologic. Neurological: Mental Status:intact, orientation, memory, attention span/concentration, language, fund of knowledge normal. Cranial Nerves:Pupils equal and reactive to light, extraocular movements areintact, visual ramirez are full to confrontation. I detect no discontinuity gays although the patient complains of diplopia in all directions of gaze. There is also no nystagmus despite her complaint of dizziness. Facial sensation is normal. There is no facial asymmetry. Vestibulo-ocular reflex is intact. Palate elevates and tongue protrudes in midline. All other cranial related problems are negative except as mentioned before.Reflexes:0+ and symmetric with flexor plantar responses. Motor:5/5 strength with normal tone and bulk. Coordination:Finger-nose finger and kxiq-ki-[id number] testing are normal. Rapid alternating movements and fine finger movements are intact. Gait: not tested. Sensory: stocking loss. Vitals VITALS Vital Signs Date Time Temp Pulse Resp B/P (MAP) Pulse Ox O2 Delivery O2 Flow Rate FiO2 10/15/18 13:00 78 97 10/15/18 11:08 97.6 20 174/76 (108) Room Air 97.6 Labs Labs Laboratory Tests Test 10/15/18 11:36 10/15/18 11:50 10/15/18 12:57 Glucose (Fingerstick) 212 mg/dL (70-99) 219 mg/dL (70-99) White Blood Count 9.6 x10^3/uL (4.0-11.0) Red Blood Count 4.02 x10^6/uL (3.50-5.40) Hemoglobin 12.6 g/dL (12.0-15.5) Hematocrit 37.8 % (36.0-47.0) Mean Corpuscular Volume 94 fL (79-100) Mean Corpuscular Hemoglobin 31 pg (25-35) Mean Corpuscular Hemoglobin Concent 33 g/dL (31-37) Red Cell Distribution Width 13.3 % (11.5-14.5) Platelet Count 320 x10^3/uL (140-400) Prothrombin Time 14.1 SEC (11.7-14.0) Prothromb Time International Ratio 1.1 (0.8-1.1) Activated Partial Thromboplast Time 30 SEC (24-38) Sodium Level 135 mmol/L (136-145) Potassium Level 3.8 mmol/L (3.5-5.1) Chloride Level 96 mmol/L (98-107) Carbon Dioxide Level 31 mmol/L (21-32) Anion Gap 8 (6-14) Blood Urea Nitrogen 15 mg/dL (7-20) Creatinine 0.8 mg/dL (0.6-1.0) Estimated GFR (Cockcroft-Gault) 75.3 Glucose Level 222 mg/dL (70-99) Calcium Level 9.1 mg/dL (8.5-10.1) Laboratory Tests Test 10/15/18 11:36 10/15/18 11:50 10/15/18 12:57 Glucose (Fingerstick) 212 mg/dL (70-99) 219 mg/dL (70-99) White Blood Count 9.6 x10^3/uL (4.0-11.0) Red Blood Count 4.02 x10^6/uL (3.50-5.40) Hemoglobin 12.6 g/dL (12.0-15.5) Hematocrit 37.8 % (36.0-47.0) Mean Corpuscular Volume 94 fL (79-100) Mean Corpuscular Hemoglobin 31 pg (25-35) Mean Corpuscular Hemoglobin Concent 33 g/dL (31-37) Red Cell Distribution Width 13.3 % (11.5-14.5) Platelet Count 320 x10^3/uL (140-400) Prothrombin Time 14.1 SEC (11.7-14.0) Prothromb Time International Ratio 1.1 (0.8-1.1) Activated Partial Thromboplast Time 30 SEC (24-38) Sodium Level 135 mmol/L (136-145) Potassium Level 3.8 mmol/L (3.5-5.1) Chloride Level 96 mmol/L (98-107) Carbon Dioxide Level 31 mmol/L (21-32) Anion Gap 8 (6-14) Blood Urea Nitrogen 15 mg/dL (7-20) Creatinine 0.8 mg/dL (0.6-1.0) Estimated GFR (Cockcroft-Gault) 75.3 Glucose Level 222 mg/dL (70-99) Calcium Level 9.1 mg/dL (8.5-10.1) Images Images CT head: No acute extra-axial or parenchymal hemorrhage is identified. There is no significant intra-axial mass effect, midline shift, or extra-axial fluid collection. The zavala-white differentiation of the major vascular territories is preserved. The ventricles, sulci, and cisterns are within normal limits in size and configuration. The mastoid air cells and the visualized paranasal sinuses are aerated. No acute calvarial abnormality is identified. Impression: 1. No acute intracranial abnormality is identified by CT. Assessment/Plan Assessment/Plan Impression: Brainstem stroke symptoms but atypical findings of lack of nystagmus and diplopia in all directions of gaze. Also consider migraine phenomenon, psychiatric disorder, metabolic issues. None are apparent, though. Diabetic neuropathy Meralgia paresthetica Anxiety and depression Obstructive sleep apnea History of migraines Recommendations: I discussed the case with Dr. Colin and agreed that the patient was a candidate for alteplase, which she has received. I see monitoring Blood pressure parameters per orders CT angiogram Delay until tomorrow to check MRI the brain as she needs imaging 24 hours after alteplase anyway. Echocardiogram Hold aspirin Rehabilitation modalities Thank you for letting me help with the patient's care. LAINE SOLIZ MD Oct 15, 2018 14:11
--- NOTE | 2018-10-15 14:19 | NUR ---
Patient arrived from the ED at 1400. Patient is A/O with NIH score 0. Vital signs are WNL. No bleeding from the gums. Will continue to monitor.
--- NOTE | 2018-10-15 14:24 | RAD ---
CTA head and neck History: Double vision, fall, dizziness Technique: After bolus of intravenous contrast, volumetric CT data acquisition was acquired of the head and neck. Multiplanar reconstruction images to include MIP and 3-D reconstruction images are submitted. Exposure: One or more of the following individualized dose reduction techniques were utilized for this examination: 1. Automated exposure control 2. Adjustment of the mA and/or kV according to patient size 3. Use of iterative reconstruction technique. Comparison: CT head earlier the same day Any determination of stenosis is based on NASCET criteria. CTA head: Findings: Contrast bolus opacification of the intracranial vasculature is suboptimal. Evaluation of the petrous internal carotid arteries bilaterally is limited due to limited contrast opacification. There is small patent anterior communicating artery. Both vertebral arteries constitute the basilar artery. There is visualization of right PICA, not well seen on the left on this exam. AICAs are poorly visualized this exam. Superior cerebellar arteries are faintly visualized bilaterally. No significant posterior communicating arteries are visualized on either side. There is visualization of segments of bilateral anterior, middle, and posterior cerebral arteries, no obvious focal filling defect of the larger intracranial vessels. Of the visualized intracranial vasculature, no significant focal stenosis or aneurysm is identified. Impression: 1. Of the visualized intracranial vasculature, no significant focal stenosis or focal filling defect is identified. Exam is limited due to suboptimal contrast opacification of the intracranial vasculature, especially limited evaluation of the petrous internal carotid arteries and smaller intracranial vessels. Neck CTA: Findings: There is some motion. Contrast bolus in the arteries is suboptimal. There are normal anatomic origins of the great vessels. No convincing flow limiting dissection flap is identified. No significant focal stenosis is identified of the cervical arterial vasculature. Impression: 1. No significant focal stenosis or convincing flow limiting dissection flap is identified of the cervical arterial vasculature. However contrast bolus is suboptimal. Electronically signed by: Eder Rubio MD (10/15/2018 2:21 PM) [id number]
[2018-10-15] MEDS: DULoxetine HCL 30 MG CAPSULE.DR PO SCH (14:31)
[2018-10-15] MEDS: ONDANSETRON PF 4 MG/2 ML VIAL. IV PRN (14:42)
[2018-10-15] MEDS: CETIRIZINE HCL 10 MG TABLET. PO SCH (15:00)
[2018-10-15] MEDS: ATORVASTATIN CALCIUM 10 MG TABLET. PO SCH (21:14)
[2018-10-16] VITALS (22 sets, daily range): BP systolic 105–166; BP diastolic 45–71
[2018-10-16 00:08] LABS: HEMOGLOBIN A1C 7.7 % (4.8-5.6)
[2018-10-16 05:22] LABS: BASO # 0.1 x10^3/uL (0.0-0.2); BASO % 1 % (0-3); EOS # 0.4 x10^3/uL (0.0-0.7); EOS % 4 % (0-3); HEMATOCRIT 32.3 % (36.0-47.0); HEMOGLOBIN 10.8 g/dL (12.0-15.5); LYMPH % 37 % (24-48); MEAN CORPUSCULAR HEMOGLOBIN 32 pg (25-35); MEAN CORPUSCULAR HGB CONC 34 g/dL (31-37); MEAN CORPUSCULAR VOLUME 96 fL (79-100); MONO # 0.6 x10^3/uL (0.0-1.1); MONO % 8 % (0-9); NEUT # 4.2 x10^3uL (1.8-7.7); NEUT % 51 % (31-73); PLATELET COUNT 282 x10^3/uL (140-400); RED BLOOD COUNT 3.38 x10^6/uL (3.50-5.40); WHITE BLOOD COUNT 8.2 x10^3/uL (4.0-11.0)
[2018-10-16 05:40] LABS: CALCIUM 8.6 mg/dL (8.5-10.1); CREATININE 0.8 mg/dL (0.6-1.0); GFR 75.3; POTASSIUM 3.8 mmol/L (3.5-5.1)
[2018-10-16 05:46] LABS: ALBUMIN 3.4 g/dL (3.4-5.0); ALBUMIN/GLOBULIN RATIO 0.9 (1.0-1.7); TOTAL BILIRUBIN 0.2 mg/dL (0.2-1.0)
[2018-10-16 05:55] LABS: CHOLESTEROL/HDL RATIO 4.6
[2018-10-16] MEDS: ONDANSETRON PF 4 MG/2 ML VIAL. IV PRN (07:23)
[2018-10-16] MEDS: DULoxetine HCL 30 MG CAPSULE.DR PO SCH (08:46)
[2018-10-16] MEDS: CETIRIZINE HCL 10 MG TABLET. PO SCH (08:46)
--- NOTE | 2018-10-16 09:38 | PDOC ---
PROGRESS NOTES Assessment Problems Medical Problems: (1) Acute CVA (cerebrovascular accident) Status: Acute (2) Diplopia Status: Acute (3) Vertigo Status: Acute Status-post alteplase, extensive bruising Brainstem stroke symptoms but atypical findings of lack of nystagmus and diplopia in all directions of gaze. Also consider migraine phenomenon, psychiatric disorder, metabolic issues. None are apparent, though. Diabetic neuropathy Meralgia paresthetica Anxiety and depression Obstructive sleep apnea History of migraines Note that she had a cardiac catheterization here 09/02/18, negative Plan ICU, consider transfer to floor later today if stable and MRI unremarkable Blood pressure parameters per orders Hold aspirin Rehabilitation modalities Subjective Still feels a little dizzy Objective Vital Signs Date Time Temp Pulse Resp B/P (MAP) Pulse Ox O2 Delivery O2 Flow Rate FiO2 10/16/18 08:56 78 14 144/63 (90) 95 Room Air 10/16/18 06:12 97.0 97.0 10/16/18 00:01 2.0 Intake and Output 10/16/18 07:00 Intake Total 1580.22 ml Output Total 3150 ml Balance -1569.78 ml Intake Oral 1140 ml IV Total 440.22 ml Output Urine Total 3150 ml PHYSICAL EXAM Extensive bruising Alert. Oriented to time, place and person. PERRL. EOMI, no nystagmus. CN: no focal findings. Muscle tone: normal. Muscle strength: 5/5 DTR: 0+ Plantar reflex: flexor Gait: not examined in bed. Sensory exam: stocking loss. No cerebellar signs elicited. Review of Relevant I have reviewed the following items kathy (where applicable) has been applied. Labs Laboratory Tests Test 10/15/18 11:36 10/15/18 11:50 10/15/18 12:57 10/15/18 17:13 Glucose (Fingerstick) 212 mg/dL (70-99) 219 mg/dL (70-99) 114 mg/dL (70-99) White Blood Count 9.6 x10^3/uL (4.0-11.0) Red Blood Count 4.02 x10^6/uL (3.50-5.40) Hemoglobin 12.6 g/dL (12.0-15.5) Hematocrit 37.8 % (36.0-47.0) Mean Corpuscular Volume 94 fL (79-100) Mean Corpuscular Hemoglobin 31 pg (25-35) Mean Corpuscular Hemoglobin Concent 33 g/dL (31-37) Red Cell Distribution Width 13.3 % (11.5-14.5) Platelet Count 320 x10^3/uL (140-400) Prothrombin Time 14.1 SEC (11.7-14.0) Prothromb Time International Ratio 1.1 (0.8-1.1) Activated Partial Thromboplast Time 30 SEC (24-38) Sodium Level 135 mmol/L (136-145) Potassium Level 3.8 mmol/L (3.5-5.1) Chloride Level 96 mmol/L (98-107) Carbon Dioxide Level 31 mmol/L (21-32) Anion Gap 8 (6-14) Blood Urea Nitrogen 15 mg/dL (7-20) Creatinine 0.8 mg/dL (0.6-1.0) Estimated GFR (Cockcroft-Gault) 75.3 Glucose Level 222 mg/dL (70-99) Hemoglobin A1c 7.7 % (4.8-5.6) Calcium Level 9.1 mg/dL (8.5-10.1) Test 10/15/18 21:17 10/16/18 04:30 Glucose (Fingerstick) 152 mg/dL (70-99) White Blood Count 8.2 x10^3/uL (4.0-11.0) Red Blood Count 3.38 x10^6/uL (3.50-5.40) Hemoglobin 10.8 g/dL (12.0-15.5) Hematocrit 32.3 % (36.0-47.0) Mean Corpuscular Volume 96 fL (79-100) Mean Corpuscular Hemoglobin 32 pg (25-35) Mean Corpuscular Hemoglobin Concent 34 g/dL (31-37) Red Cell Distribution Width 13.0 % (11.5-14.5) Platelet Count 282 x10^3/uL (140-400) Neutrophils (%) (Auto) 51 % (31-73) Lymphocytes (%) (Auto) 37 % (24-48) Monocytes (%) (Auto) 8 % (0-9) Eosinophils (%) (Auto) 4 % (0-3) Basophils (%) (Auto) 1 % (0-3) Neutrophils # (Auto) 4.2 x10^3uL (1.8-7.7) Lymphocytes # (Auto) 3.0 x10^3/uL (1.0-4.8) Monocytes # (Auto) 0.6 x10^3/uL (0.0-1.1) Eosinophils # (Auto) 0.4 x10^3/uL (0.0-0.7) Basophils # (Auto) 0.1 x10^3/uL (0.0-0.2) Sodium Level 135 mmol/L (136-145) Potassium Level 3.8 mmol/L (3.5-5.1) Chloride Level 98 mmol/L (98-107) Carbon Dioxide Level 31 mmol/L (21-32) Anion Gap 6 (6-14) Blood Urea Nitrogen 13 mg/dL (7-20) Creatinine 0.8 mg/dL (0.6-1.0) Estimated GFR (Cockcroft-Gault) 75.3 BUN/Creatinine Ratio 16 (6-20) Glucose Level 174 mg/dL (70-99) Calcium Level 8.6 mg/dL (8.5-10.1) Total Bilirubin 0.2 mg/dL (0.2-1.0) Aspartate Amino Transf (AST/SGOT) 19 U/L (15-37) Alanine Aminotransferase (ALT/SGPT) 26 U/L (14-59) Alkaline Phosphatase 114 U/L (46-116) Total Protein 7.0 g/dL (6.4-8.2) Albumin 3.4 g/dL (3.4-5.0) Albumin/Globulin Ratio 0.9 (1.0-1.7) Triglycerides Level 186 mg/dL (0-150) Cholesterol Level 164 mg/dL (0-200) LDL Cholesterol, Calculated 91 mg/dL (0-100) VLDL Cholesterol, Calculated 37 mg/dL (0-40) Non-HDL Cholesterol Calculated 128 mg/dL (0-129) HDL Cholesterol 36 mg/dL (40-60) Cholesterol/HDL Ratio 4.6 Laboratory Tests Test 10/15/18 11:36 10/15/18 11:50 10/15/18 12:57 10/15/18 17:13 Glucose (Fingerstick) 212 mg/dL (70-99) 219 mg/dL (70-99) 114 mg/dL (70-99) White Blood Count 9.6 x10^3/uL (4.0-11.0) Red Blood Count 4.02 x10^6/uL (3.50-5.40) Hemoglobin 12.6 g/dL (12.0-15.5) Hematocrit 37.8 % (36.0-47.0) Mean Corpuscular Volume 94 fL (79-100) Mean Corpuscular Hemoglobin 31 pg (25-35) Mean Corpuscular Hemoglobin Concent 33 g/dL (31-37) Red Cell Distribution Width 13.3 % (11.5-14.5) Platelet Count 320 x10^3/uL (140-400) Prothrombin Time 14.1 SEC (11.7-14.0) Prothromb Time International Ratio 1.1 (0.8-1.1) Activated Partial Thromboplast Time 30 SEC (24-38) Sodium Level 135 mmol/L (136-145) Potassium Level 3.8 mmol/L (3.5-5.1) Chloride Level 96 mmol/L (98-107) Carbon Dioxide Level 31 mmol/L (21-32) Anion Gap 8 (6-14) Blood Urea Nitrogen 15 mg/dL (7-20) Creatinine 0.8 mg/dL (0.6-1.0) Estimated GFR (Cockcroft-Gault) 75.3 Glucose Level 222 mg/dL (70-99) Hemoglobin A1c 7.7 % (4.8-5.6) Calcium Level 9.1 mg/dL (8.5-10.1) Test 10/15/18 21:17 10/16/18 04:30 Glucose (Fingerstick) 152 mg/dL (70-99) White Blood Count 8.2 x10^3/uL (4.0-11.0) Red Blood Count 3.38 x10^6/uL (3.50-5.40) Hemoglobin 10.8 g/dL (12.0-15.5) Hematocrit 32.3 % (36.0-47.0) Mean Corpuscular Volume 96 fL (79-100) Mean Corpuscular Hemoglobin 32 pg (25-35) Mean Corpuscular Hemoglobin Concent 34 g/dL (31-37) Red Cell Distribution Width 13.0 % (11.5-14.5) Platelet Count 282 x10^3/uL (140-400) Neutrophils (%) (Auto) 51 % (31-73) Lymphocytes (%) (Auto) 37 % (24-48) Monocytes (%) (Auto) 8 % (0-9) Eosinophils (%) (Auto) 4 % (0-3) Basophils (%) (Auto) 1 % (0-3) Neutrophils # (Auto) 4.2 x10^3uL (1.8-7.7) Lymphocytes # (Auto) 3.0 x10^3/uL (1.0-4.8) Monocytes # (Auto) 0.6 x10^3/uL (0.0-1.1) Eosinophils # (Auto) 0.4 x10^3/uL (0.0-0.7) Basophils # (Auto) 0.1 x10^3/uL (0.0-0.2) Sodium Level 135 mmol/L (136-145) Potassium Level 3.8 mmol/L (3.5-5.1) Chloride Level 98 mmol/L (98-107) Carbon Dioxide Level 31 mmol/L (21-32) Anion Gap 6 (6-14) Blood Urea Nitrogen 13 mg/dL (7-20) Creatinine 0.8 mg/dL (0.6-1.0) Estimated GFR (Cockcroft-Gault) 75.3 BUN/Creatinine Ratio 16 (6-20) Glucose Level 174 mg/dL (70-99) Calcium Level 8.6 mg/dL (8.5-10.1) Total Bilirubin 0.2 mg/dL (0.2-1.0) Aspartate Amino Transf (AST/SGOT) 19 U/L (15-37) Alanine Aminotransferase (ALT/SGPT) 26 U/L (14-59) Alkaline Phosphatase 114 U/L (46-116) Total Protein 7.0 g/dL (6.4-8.2) Albumin 3.4 g/dL (3.4-5.0) Albumin/Globulin Ratio 0.9 (1.0-1.7) Triglycerides Level 186 mg/dL (0-150) Cholesterol Level 164 mg/dL (0-200) LDL Cholesterol, Calculated 91 mg/dL (0-100) VLDL Cholesterol, Calculated 37 mg/dL (0-40) Non-HDL Cholesterol Calculated 128 mg/dL (0-129) HDL Cholesterol 36 mg/dL (40-60) Cholesterol/HDL Ratio 4.6 Medications Current Medications Alteplase, Recombinant 0 ml @ 0 mls/hr 1X ONCE IV Last administered on at 11:57; Start 10/15/18 at 11:45; Stop 10/15/18 at 11:46; Status DC Alteplase, Recombinant 0 ml @ 0 mls/hr Q1H IV Last administered on 10/15/18at 12 :03; Start 10/15/18 at 11:45; Stop 10/15/18 at 11:46; Status DC Sodium Chloride 50 ml @ 0 mls/hr 1X ONCE IV Last administered on 10/15/18at 12: 52; Start 10/15/18 at 11:45; Stop 10/15/18 at 11:46; Status DC Labetalol HCl (Normodyne Iv Push) 10 mg PRN Q10MIN PRN IVP HYPERTENSION, SEE COMMENTS; Start 10/15/18 at 11:45; Status Cancel Nicardipine HCl 50 mg/Sodium Chloride 250 ml @ 25 mls/hr CONT PRN PRN IV HYPERTENSION, SEE COMMENTS; Start 10/15/18 at 11:45; Status Cancel Iohexol (Omnipaque 350 Mg/ml) 75 ml 1X ONCE IV ; Start 10/15/18 at 13:00; Stop 10/15/18 at 13:01; Status DC Info (CONTRAST GIVEN -- Rx MONITORING) 1 each PRN DAILY PRN MC SEE COMMENTS; Start 10/15/18 at 13:00; Stop 10/17/18 at 12:59 Morphine Sulfate (Morphine Sulfate) 2 mg PRN Q2HR PRN IV PAIN; Start 10/15/18 at 13:00; Stop 10/16/18 at 12:59 Morphine Sulfate (Morphine Sulfate) 2 mg 1X ONCE IV Last administered on at 14:32; Start 10/15/18 at 13:00; Stop 10/15/18 at 13:01; Status DC Sodium Chloride 1,000 ml @ 100 mls/hr Q10H IV Last administered on 10/15/18at 14:32; Start 10/15/18 at 13:19; Stop 10/15/18 at 23:18; Status DC Albuterol Sulfate (Ventolin Neb Soln) 2.5 mg PRN Q6HRS PRN INH SHORTNESS OF BREATH; Start 10/15/18 at 13:30 Atorvastatin Calcium (Lipitor) 10 mg HS PO Last administered on 10/15/18at 21:14 ; Start 10/15/18 at 21:00 Duloxetine HCl (Cymbalta) 120 mg DAILY PO Last administered on 10/16/18at 08:46 ; Start 10/15/18 at 14:00 Cetirizine HCl (ZyrTEC) 10 mg DAILY PO Last administered on 10/16/18at 08:46; Start 10/15/18 at 15:00 Labetalol HCl (Normodyne Iv Push) 10 mg PRN Q10MIN PRN IVP HYPERTENSION, 2ND CHOICE; Start 10/15/18 at 14:00 Nicardipine HCl 50 mg/Sodium Chloride 250 ml @ 25 mls/hr CONT PRN PRN IV HYPERTENSION, SEE COMMENTS; Start 10/15/18 at 14:00 Acetaminophen (Tylenol) 650 mg PRN Q6HRS PRN PO MILD PAIN / TEMP Last administered on 10/15/18at 19:29; Start 10/15/18 at 14:00 Acetaminophen (Tylenol Supp) 325 mg PRN Q6HRS PRN [place] MILD PAIN / TEMP; Start at 14:00 Ondansetron HCl (Zofran) 4 mg PRN Q6HRS PRN IV NAUSEA/VOMITING Last administered on 10/16/18at 07:23; Start 10/15/18 at 14:00 Active Scripts Active Reported Novolin N (Nph, Human Insulin Isophane) 100 Unit/1 Ml Vial 31 Unit SQ [id number] Robaxin-750 (Methocarbamol) 750 Mg Tablet 1 Tab PO TID Gabapentin (Gabapentin) 300 Mg Capsule 300 Mg PO BID Jeannine Allergy (Fexofenadine Hcl) 180 Mg Tablet 1 Tab PO DAILY Geodon (Ziprasidone Hcl) 80 Mg Capsule 1 Cap PO BID Atorvastatin Calcium 10 Mg Tablet 10 Mg PO HS Nuvigil (Armodafinil) 250 Mg Tablet 1 Tab PO DAILYWBKFT Glimepiride 4 Mg Tablet 1 Tab PO DAILY Losartan-Hctz 50-12.5 Mg Tab (Losartan/Hydrochlorothiazide) 1 Each Tablet 1 Tab PO DAILY Proair Hfa Inhaler (Albuterol Sulfate) 8.5 Gm Hfa.aer.ad 1 Puff INH PRN Q6HRS PRN Trileptal (Oxcarbazepine) 150 Mg Tablet 3 Tab PO BID Cymbalta (Duloxetine Hcl) 20 Mg Capsule.dr 120 Mg PO DAILY Trazodone Hcl 300 Mg Tablet 200 Mg PO QHS Vitals/I & O Vital Sign - Last 24 Hours 10/15/18 10/15/18 10/15/18 10/15/18 11:00 11:08 11:15 11:30 Temp 97.6 97.6 Pulse 76 77 78 78 Resp 20 B/P (MAP) 174/76 (108) Pulse Ox 97 97 97 97 O2 Delivery Room Air 10/15/18 10/15/18 10/15/18 10/15/18 11:45 12:00 12:15 12:30 Pulse 80 78 76 78 Pulse Ox 96 97 97 97 10/15/18 10/15/18 10/15/18 10/15/18 12:45 13:00 13:45 14:00 Pulse 80 78 78 Pulse Ox 97 97 98 O2 Delivery Room Air 10/15/18 10/15/18 10/15/18 10/15/18 14:15 14:30 14:32 14:45 Temp 98.1 98.1 Pulse 80 78 80 Resp 16 16 16 18 B/P (MAP) 140/66 (90) 145/59 (87) 142/55 (84) Pulse Ox 92 95 89 O2 Delivery Room Air Room Air Room Air Room Air 10/15/18 10/15/18 10/15/18 10/15/18 15:00 15:15 15:27 15:30 Pulse 80 80 76 Resp 16 18 16 16 B/P (MAP) 146/60 (88) 147/56 (86) 140/46 (77) Pulse Ox 93 95 99 O2 Delivery Room Air Room Air Nasal Cannula Nasal Cannula O2 Flow Rate 3.0 3.0 10/15/18 10/15/18 10/15/18 10/15/18 15:45 16:00 16:00 16:30 Temp 97.7 97.7 Pulse 75 78 78 Resp 18 16 12 B/P (MAP) 140/59 (86) 145/56 (85) 135/54 (81) Pulse Ox 99 98 99 O2 Delivery Nasal Cannula Nasal Cannula Room Air Nasal Cannula O2 Flow Rate 2.0 2.0 2.0 10/15/18 10/15/18 10/15/18 10/15/18 17:00 17:30 18:00 18:31 Pulse 78 88 74 76 Resp 18 16 16 16 B/P (MAP) 130/47 (74) 137/70 (92) 117/57 (77) 135/57 (83) Pulse Ox 95 96 95 97 O2 Delivery Room Air Room Air Nasal Cannula BiPAP/CPAP O2 Flow Rate 2.0 10/15/18 10/15/18 10/15/18 10/15/18 19:00 19:36 20:11 20:33 Pulse 76 76 76 76 Resp 16 18 18 20 B/P (MAP) 83/49 (60) 131/55 (80) 140/63 (88) 114/58 (76) Pulse Ox 97 95 95 94 O2 Delivery BiPAP/CPAP BiPAP/CPAP BiPAP/CPAP BiPAP/CPAP 10/15/18 10/15/18 10/15/18 10/16/18 21:00 22:00 23:00 00:01 Pulse 72 74 72 70 Resp 18 18 18 18 B/P (MAP) 135/57 (83) 140/53 (82) 132/60 (84) 114/45 (68) Pulse Ox 93 96 93 94 O2 Delivery BiPAP/CPAP BiPAP/CPAP BiPAP/CPAP BiPAP/CPAP 10/16/18 10/16/18 10/16/18 10/16/18 00:01 01:00 02:06 02:59 Pulse 77 71 69 Resp 20 20 18 B/P (MAP) 130/48 (75) 129/55 (79) 140/61 (87) Pulse Ox 94 94 95 O2 Delivery Room Air BiPAP/CPAP Room Air BiPAP/CPAP O2 Flow Rate 2.0 10/16/18 10/16/18 10/16/18 10/16/18 04:00 04:00 05:13 06:12 Temp 97.0 97.0 Pulse 74 70 71 Resp 20 18 18 B/P (MAP) 145/54 (84) 140/53 (82) 166/61 (96) Pulse Ox 94 94 93 O2 Delivery BiPAP/CPAP Room Air BiPAP/CPAP BiPAP/CPAP 10/16/18 10/16/18 10/16/18 10/16/18 07:00 08:00 08:00 08:56 Pulse 78 79 78 Resp 16 12 14 B/P (MAP) 125/54 (77) 132/64 (86) 144/63 (90) Pulse Ox 95 95 O2 Delivery Room Air Room Air Room Air Room Air Intake and Output 10/15/18 10/15/18 10/16/18 15:00 23:00 07:00 Intake Total 131 ml 1299.22 ml 150 ml Output Total 0 ml 1100 ml 2050 ml Balance 131 ml 199.22 ml -1900 ml Images CTA head and neck History: Double vision, fall, dizziness Technique: After bolus of intravenous contrast, volumetric CT data acquisition was acquired of the head and neck. Multiplanar reconstruction images to include MIP and 3-D reconstruction images are submitted. Exposure: One or more of the following individualized dose reduction techniques were utilized for this examination: 1. Automated exposure control 2. Adjustment of the mA and/or kV according to patient size 3. Use of iterative reconstruction technique. Comparison: CT head earlier the same day Any determination of stenosis is based on NASCET criteria. CTA head: Findings: Contrast bolus opacification of the intracranial vasculature is suboptimal. Evaluation of the petrous internal carotid arteries bilaterally is limited due to limited contrast opacification. There is small patent anterior communicating artery. Both vertebral arteries constitute the basilar artery. There is visualization of right PICA, not well seen on the left on this exam. AICAs are poorly visualized this exam. Superior cerebellar arteries are faintly visualized bilaterally. No significant posterior communicating arteries are visualized on either side. There is visualization of segments of bilateral anterior, middle, and posterior cerebral arteries, no obvious focal filling defect of the larger intracranial vessels. Of the visualized intracranial vasculature, no significant focal stenosis or aneurysm is identified. Impression: 1. Of the visualized intracranial vasculature, no significant focal stenosis or focal filling defect is identified. Exam is limited due to suboptimal contrast opacification of the intracranial vasculature, especially limited evaluation of the petrous internal carotid arteries and smaller intracranial vessels. Neck CTA: Findings: There is some motion. Contrast bolus in the arteries is suboptimal. There are normal anatomic origins of the great vessels. No convincing flow limiting dissection flap is identified. No significant focal stenosis is identified of the cervical arterial vasculature. Impression: 1. No significant focal stenosis or convincing flow limiting dissection flap is identified of the cervical arterial vasculature. However contrast bolus is suboptimal. Echocardiogram, 09/02/18 LEFT VENTRICLE The left ventricle is normal size. There is mild concentric left ventricular hypertrophy. The left ventricular systolic function is normal and the ejection fraction is within normal range. The Ejection Fraction is 55-60%. There is normal LV segmental wall motion. The left ventricular diastolic function and filling is normal for age. RIGHT VENTRICLE The right ventricle is normal size. The right ventricular systolic function is normal. ATRIA The left atrium size is normal. The right atrium size is normal. The interatrial septum is intact with no evidence for an atrial septal defect or patent foramen ovale as noted on 2-D or Doppler imaging. AORTIC VALVE The aortic valve is normal in structure and function. Doppler and Color Flow revealed no significant aortic regurgitation. There is no significant aortic valvular stenosis. MITRAL VALVE The mitral valve is normal in structure and function. There is no evidence of mitral valve prolapse. There is no mitral valve stenosis. Doppler and Color- flow revealed trace mitral regurgitation. TRICUSPID VALVE The tricuspid valve is normal in structure and function. Doppler and Color Flow revealed mild tricuspid regurgitation. There is moderate-severe pulmonary hypertension. The PA pressure was estimated at 68 mmHg. There is no tricuspid valve stenosis. PULMONIC VALVE The pulmonic valve is not well visualized. Doppler and Color Flow revealed no pulmonic valvular regurgitation. There is no pulmonic valvular stenosis. GREAT VESSELS The aortic root is normal in size. The ascending aorta is normal in size. The IVC is dilated and collapses <50% with inspiration. PERICARDIAL EFFUSION There is no evidence of significant pericardial effusion. Critical Notification Critical Value: No <Conclusion> The left ventricular systolic function is normal and the ejection fraction is within normal range. The Ejection Fraction is 55-60%. There is normal LV segmental wall motion. Doppler and Color Flow revealed mild tricuspid regurgitation. There is moderate- severe pulmonary hypertension. The PA pressure was estimated at 68 mmHg. LAINE SOLIZ MD Oct 16, 2018 09:38
--- NOTE | 2018-10-16 09:48 | PDOC ---
PROGRESS NOTES Chief Complaint Chief Complaint Brainstem stroke symptoms but atypical findings of lack of nystagmus and diplopia in all directions of gaze. Also consider migraine phenomenon, psychiatric disorder, metabolic issues. None are apparent, though. Diabetic neuropathy Meralgia paresthetica Anxiety and depression Obstructive sleep apnea History of migraines S/p cardiac catheterization here 09/02/18, negative History of Present Illness History of Present Illness 10/15/18 at approximately 9:30 AM she noted acute onset of severe vertigo, diplopia and sensation of her balance being off. Patient denies any previous episodes. Symptoms were severe and patient fell with injury to left upper arm. Patient denies any ocular pain. Patient does report mild headache behind her eyes. Patient largely with complaint of significant dizziness/vertigo. No nausea , vomiting. Patient does have history of migraines. She is status-post alteplase with negative head CT, now with extensive bruising. Seen by neurology. Today awaiting MRI. ASA on hold. She is on bedrest , frustrated by this, wishes for a shower, has word finding and object identification difficulty today. Plan: MRI today, if stable can transfer out Vitals Vitals Vital Signs Date Time Temp Pulse Resp B/P (MAP) Pulse Ox O2 Delivery O2 Flow Rate FiO2 10/16/18 08:56 78 14 144/63 (90) 95 Room Air 10/16/18 06:12 97.0 97.0 10/16/18 00:01 2.0 Physical Exam General: Alert, Oriented X3, Cooperative, No acute distress Abdomen: Soft Extremities: No cyanosis Skin: No significant lesion Labs LABS Laboratory Tests Test 10/15/18 11:36 10/15/18 11:50 10/15/18 12:57 10/15/18 17:13 Glucose (Fingerstick) 212 mg/dL (70-99) 219 mg/dL (70-99) 114 mg/dL (70-99) White Blood Count 9.6 x10^3/uL (4.0-11.0) Red Blood Count 4.02 x10^6/uL (3.50-5.40) Hemoglobin 12.6 g/dL (12.0-15.5) Hematocrit 37.8 % (36.0-47.0) Mean Corpuscular Volume 94 fL (79-100) Mean Corpuscular Hemoglobin 31 pg (25-35) Mean Corpuscular Hemoglobin Concent 33 g/dL (31-37) Red Cell Distribution Width 13.3 % (11.5-14.5) Platelet Count 320 x10^3/uL (140-400) Prothrombin Time 14.1 SEC (11.7-14.0) Prothromb Time International Ratio 1.1 (0.8-1.1) Activated Partial Thromboplast Time 30 SEC (24-38) Sodium Level 135 mmol/L (136-145) Potassium Level 3.8 mmol/L (3.5-5.1) Chloride Level 96 mmol/L (98-107) Carbon Dioxide Level 31 mmol/L (21-32) Anion Gap 8 (6-14) Blood Urea Nitrogen 15 mg/dL (7-20) Creatinine 0.8 mg/dL (0.6-1.0) Estimated GFR (Cockcroft-Gault) 75.3 Glucose Level 222 mg/dL (70-99) Hemoglobin A1c 7.7 % (4.8-5.6) Calcium Level 9.1 mg/dL (8.5-10.1) Test 10/15/18 21:17 10/16/18 04:30 Glucose (Fingerstick) 152 mg/dL (70-99) White Blood Count 8.2 x10^3/uL (4.0-11.0) Red Blood Count 3.38 x10^6/uL (3.50-5.40) Hemoglobin 10.8 g/dL (12.0-15.5) Hematocrit 32.3 % (36.0-47.0) Mean Corpuscular Volume 96 fL (79-100) Mean Corpuscular Hemoglobin 32 pg (25-35) Mean Corpuscular Hemoglobin Concent 34 g/dL (31-37) Red Cell Distribution Width 13.0 % (11.5-14.5) Platelet Count 282 x10^3/uL (140-400) Neutrophils (%) (Auto) 51 % (31-73) Lymphocytes (%) (Auto) 37 % (24-48) Monocytes (%) (Auto) 8 % (0-9) Eosinophils (%) (Auto) 4 % (0-3) Basophils (%) (Auto) 1 % (0-3) Neutrophils # (Auto) 4.2 x10^3uL (1.8-7.7) Lymphocytes # (Auto) 3.0 x10^3/uL (1.0-4.8) Monocytes # (Auto) 0.6 x10^3/uL (0.0-1.1) Eosinophils # (Auto) 0.4 x10^3/uL (0.0-0.7) Basophils # (Auto) 0.1 x10^3/uL (0.0-0.2) Sodium Level 135 mmol/L (136-145) Potassium Level 3.8 mmol/L (3.5-5.1) Chloride Level 98 mmol/L (98-107) Carbon Dioxide Level 31 mmol/L (21-32) Anion Gap 6 (6-14) Blood Urea Nitrogen 13 mg/dL (7-20) Creatinine 0.8 mg/dL (0.6-1.0) Estimated GFR (Cockcroft-Gault) 75.3 BUN/Creatinine Ratio 16 (6-20) Glucose Level 174 mg/dL (70-99) Calcium Level 8.6 mg/dL (8.5-10.1) Total Bilirubin 0.2 mg/dL (0.2-1.0) Aspartate Amino Transf (AST/SGOT) 19 U/L (15-37) Alanine Aminotransferase (ALT/SGPT) 26 U/L (14-59) Alkaline Phosphatase 114 U/L (46-116) Total Protein 7.0 g/dL (6.4-8.2) Albumin 3.4 g/dL (3.4-5.0) Albumin/Globulin Ratio 0.9 (1.0-1.7) Triglycerides Level 186 mg/dL (0-150) Cholesterol Level 164 mg/dL (0-200) LDL Cholesterol, Calculated 91 mg/dL (0-100) VLDL Cholesterol, Calculated 37 mg/dL (0-40) Non-HDL Cholesterol Calculated 128 mg/dL (0-129) HDL Cholesterol 36 mg/dL (40-60) Cholesterol/HDL Ratio 4.6 Assessment and Plan Assessmemt and Plan Problems Medical Problems: (1) Acute CVA (cerebrovascular accident) Status: Acute (2) Diplopia Status: Acute (3) Vertigo Status: Acute Comment Review of Relevant I have reviewed the following items kathy (where applicable) has been applied. Labs Laboratory Tests Test 10/15/18 11:36 10/15/18 11:50 10/15/18 12:57 10/15/18 17:13 Glucose (Fingerstick) 212 mg/dL (70-99) 219 mg/dL (70-99) 114 mg/dL (70-99) White Blood Count 9.6 x10^3/uL (4.0-11.0) Red Blood Count 4.02 x10^6/uL (3.50-5.40) Hemoglobin 12.6 g/dL (12.0-15.5) Hematocrit 37.8 % (36.0-47.0) Mean Corpuscular Volume 94 fL (79-100) Mean Corpuscular Hemoglobin 31 pg (25-35) Mean Corpuscular Hemoglobin Concent 33 g/dL (31-37) Red Cell Distribution Width 13.3 % (11.5-14.5) Platelet Count 320 x10^3/uL (140-400) Prothrombin Time 14.1 SEC (11.7-14.0) Prothromb Time International Ratio 1.1 (0.8-1.1) Activated Partial Thromboplast Time 30 SEC (24-38) Sodium Level 135 mmol/L (136-145) Potassium Level 3.8 mmol/L (3.5-5.1) Chloride Level 96 mmol/L (98-107) Carbon Dioxide Level 31 mmol/L (21-32) Anion Gap 8 (6-14) Blood Urea Nitrogen 15 mg/dL (7-20) Creatinine 0.8 mg/dL (0.6-1.0) Estimated GFR (Cockcroft-Gault) 75.3 Glucose Level 222 mg/dL (70-99) Hemoglobin A1c 7.7 % (4.8-5.6) Calcium Level 9.1 mg/dL (8.5-10.1) Test 10/15/18 21:17 10/16/18 04:30 Glucose (Fingerstick) 152 mg/dL (70-99) White Blood Count 8.2 x10^3/uL (4.0-11.0) Red Blood Count 3.38 x10^6/uL (3.50-5.40) Hemoglobin 10.8 g/dL (12.0-15.5) Hematocrit 32.3 % (36.0-47.0) Mean Corpuscular Volume 96 fL (79-100) Mean Corpuscular Hemoglobin 32 pg (25-35) Mean Corpuscular Hemoglobin Concent 34 g/dL (31-37) Red Cell Distribution Width 13.0 % (11.5-14.5) Platelet Count 282 x10^3/uL (140-400) Neutrophils (%) (Auto) 51 % (31-73) Lymphocytes (%) (Auto) 37 % (24-48) Monocytes (%) (Auto) 8 % (0-9) Eosinophils (%) (Auto) 4 % (0-3) Basophils (%) (Auto) 1 % (0-3) Neutrophils # (Auto) 4.2 x10^3uL (1.8-7.7) Lymphocytes # (Auto) 3.0 x10^3/uL (1.0-4.8) Monocytes # (Auto) 0.6 x10^3/uL (0.0-1.1) Eosinophils # (Auto) 0.4 x10^3/uL (0.0-0.7) Basophils # (Auto) 0.1 x10^3/uL (0.0-0.2) Sodium Level 135 mmol/L (136-145) Potassium Level 3.8 mmol/L (3.5-5.1) Chloride Level 98 mmol/L (98-107) Carbon Dioxide Level 31 mmol/L (21-32) Anion Gap 6 (6-14) Blood Urea Nitrogen 13 mg/dL (7-20) Creatinine 0.8 mg/dL (0.6-1.0) Estimated GFR (Cockcroft-Gault) 75.3 BUN/Creatinine Ratio 16 (6-20) Glucose Level 174 mg/dL (70-99) Calcium Level 8.6 mg/dL (8.5-10.1) Total Bilirubin 0.2 mg/dL (0.2-1.0) Aspartate Amino Transf (AST/SGOT) 19 U/L (15-37) Alanine Aminotransferase (ALT/SGPT) 26 U/L (14-59) Alkaline Phosphatase 114 U/L (46-116) Total Protein 7.0 g/dL (6.4-8.2) Albumin 3.4 g/dL (3.4-5.0) Albumin/Globulin Ratio 0.9 (1.0-1.7) Triglycerides Level 186 mg/dL (0-150) Cholesterol Level 164 mg/dL (0-200) LDL Cholesterol, Calculated 91 mg/dL (0-100) VLDL Cholesterol, Calculated 37 mg/dL (0-40) Non-HDL Cholesterol Calculated 128 mg/dL (0-129) HDL Cholesterol 36 mg/dL (40-60) Cholesterol/HDL Ratio 4.6 Laboratory Tests Test 10/15/18 11:36 10/15/18 11:50 10/15/18 12:57 10/15/18 17:13 Glucose (Fingerstick) 212 mg/dL (70-99) 219 mg/dL (70-99) 114 mg/dL (70-99) White Blood Count 9.6 x10^3/uL (4.0-11.0) Red Blood Count 4.02 x10^6/uL (3.50-5.40) Hemoglobin 12.6 g/dL (12.0-15.5) Hematocrit 37.8 % (36.0-47.0) Mean Corpuscular Volume 94 fL (79-100) Mean Corpuscular Hemoglobin 31 pg (25-35) Mean Corpuscular Hemoglobin Concent 33 g/dL (31-37) Red Cell Distribution Width 13.3 % (11.5-14.5) Platelet Count 320 x10^3/uL (140-400) Prothrombin Time 14.1 SEC (11.7-14.0) Prothromb Time International Ratio 1.1 (0.8-1.1) Activated Partial Thromboplast Time 30 SEC (24-38) Sodium Level 135 mmol/L (136-145) Potassium Level 3.8 mmol/L (3.5-5.1) Chloride Level 96 mmol/L (98-107) Carbon Dioxide Level 31 mmol/L (21-32) Anion Gap 8 (6-14) Blood Urea Nitrogen 15 mg/dL (7-20) Creatinine 0.8 mg/dL (0.6-1.0) Estimated GFR (Cockcroft-Gault) 75.3 Glucose Level 222 mg/dL (70-99) Hemoglobin A1c 7.7 % (4.8-5.6) Calcium Level 9.1 mg/dL (8.5-10.1) Test 10/15/18 21:17 10/16/18 04:30 Glucose (Fingerstick) 152 mg/dL (70-99) White Blood Count 8.2 x10^3/uL (4.0-11.0) Red Blood Count 3.38 x10^6/uL (3.50-5.40) Hemoglobin 10.8 g/dL (12.0-15.5) Hematocrit 32.3 % (36.0-47.0) Mean Corpuscular Volume 96 fL (79-100) Mean Corpuscular Hemoglobin 32 pg (25-35) Mean Corpuscular Hemoglobin Concent 34 g/dL (31-37) Red Cell Distribution Width 13.0 % (11.5-14.5) Platelet Count 282 x10^3/uL (140-400) Neutrophils (%) (Auto) 51 % (31-73) Lymphocytes (%) (Auto) 37 % (24-48) Monocytes (%) (Auto) 8 % (0-9) Eosinophils (%) (Auto) 4 % (0-3) Basophils (%) (Auto) 1 % (0-3) Neutrophils # (Auto) 4.2 x10^3uL (1.8-7.7) Lymphocytes # (Auto) 3.0 x10^3/uL (1.0-4.8) Monocytes # (Auto) 0.6 x10^3/uL (0.0-1.1) Eosinophils # (Auto) 0.4 x10^3/uL (0.0-0.7) Basophils # (Auto) 0.1 x10^3/uL (0.0-0.2) Sodium Level 135 mmol/L (136-145) Potassium Level 3.8 mmol/L (3.5-5.1) Chloride Level 98 mmol/L (98-107) Carbon Dioxide Level 31 mmol/L (21-32) Anion Gap 6 (6-14) Blood Urea Nitrogen 13 mg/dL (7-20) Creatinine 0.8 mg/dL (0.6-1.0) Estimated GFR (Cockcroft-Gault) 75.3 BUN/Creatinine Ratio 16 (6-20) Glucose Level 174 mg/dL (70-99) Calcium Level 8.6 mg/dL (8.5-10.1) Total Bilirubin 0.2 mg/dL (0.2-1.0) Aspartate Amino Transf (AST/SGOT) 19 U/L (15-37) Alanine Aminotransferase (ALT/SGPT) 26 U/L (14-59) Alkaline Phosphatase 114 U/L (46-116) Total Protein 7.0 g/dL (6.4-8.2) Albumin 3.4 g/dL (3.4-5.0) Albumin/Globulin Ratio 0.9 (1.0-1.7) Triglycerides Level 186 mg/dL (0-150) Cholesterol Level 164 mg/dL (0-200) LDL Cholesterol, Calculated 91 mg/dL (0-100) VLDL Cholesterol, Calculated 37 mg/dL (0-40) Non-HDL Cholesterol Calculated 128 mg/dL (0-129) HDL Cholesterol 36 mg/dL (40-60) Cholesterol/HDL Ratio 4.6 Medications Current Medications Alteplase, Recombinant 0 ml @ 0 mls/hr 1X ONCE IV Last administered on at 11:57; Start 10/15/18 at 11:45; Stop 10/15/18 at 11:46; Status DC Alteplase, Recombinant 0 ml @ 0 mls/hr Q1H IV Last administered on 10/15/18at 12 :03; Start 10/15/18 at 11:45; Stop 10/15/18 at 11:46; Status DC Sodium Chloride 50 ml @ 0 mls/hr 1X ONCE IV Last administered on 10/15/18at 12: 52; Start 10/15/18 at 11:45; Stop 10/15/18 at 11:46; Status DC Labetalol HCl (Normodyne Iv Push) 10 mg PRN Q10MIN PRN IVP HYPERTENSION, SEE COMMENTS; Start 10/15/18 at 11:45; Status Cancel Nicardipine HCl 50 mg/Sodium Chloride 250 ml @ 25 mls/hr CONT PRN PRN IV HYPERTENSION, SEE COMMENTS; Start 10/15/18 at 11:45; Status Cancel Iohexol (Omnipaque 350 Mg/ml) 75 ml 1X ONCE IV ; Start 10/15/18 at 13:00; Stop 10/15/18 at 13:01; Status DC Info (CONTRAST GIVEN -- Rx MONITORING) 1 each PRN DAILY PRN MC SEE COMMENTS; Start 10/15/18 at 13:00; Stop 10/17/18 at 12:59 Morphine Sulfate (Morphine Sulfate) 2 mg PRN Q2HR PRN IV PAIN; Start 10/15/18 at 13:00; Stop 10/16/18 at 12:59 Morphine Sulfate (Morphine Sulfate) 2 mg 1X ONCE IV Last administered on 14:32; Start 10/15/18 at 13:00; Stop 10/15/18 at 13:01; Status DC Sodium Chloride 1,000 ml @ 100 mls/hr Q10H IV Last administered on 10/15/18at 14:32; Start 10/15/18 at 13:19; Stop 10/15/18 at 23:18; Status DC Albuterol Sulfate (Ventolin Neb Soln) 2.5 mg PRN Q6HRS PRN INH SHORTNESS OF BREATH; Start 10/15/18 at 13:30 Atorvastatin Calcium (Lipitor) 10 mg HS PO Last administered on 10/15/18at 21:14 ; Start 10/15/18 at 21:00 Duloxetine HCl (Cymbalta) 120 mg DAILY PO Last administered on 10/16/18 08:46 ; Start 10/15/18 at 14:00 Cetirizine HCl (ZyrTEC) 10 mg DAILY PO Last administered on 10/16/18 08:46; Start 10/15/18 at 15:00 Labetalol HCl (Normodyne Iv Push) 10 mg PRN Q10MIN PRN IVP HYPERTENSION, 2ND CHOICE; Start 10/15/18 at 14:00 Nicardipine HCl 50 mg/Sodium Chloride 250 ml @ 25 mls/hr CONT PRN PRN IV HYPERTENSION, SEE COMMENTS; Start 10/15/18 at 14:00 Acetaminophen (Tylenol) 650 mg PRN Q6HRS PRN PO MILD PAIN / TEMP Last administered on 10/15/18at 19:29; Start 10/15/18 at 14:00 Acetaminophen (Tylenol Supp) 325 mg PRN Q6HRS PRN MD MILD PAIN / TEMP; Start at 14:00 Ondansetron HCl (Zofran) 4 mg PRN Q6HRS PRN IV NAUSEA/VOMITING Last administered on 10/16/18at 07:23; Start 10/15/18 at 14:00 Active Scripts Active Reported Novolin N (Nph, Human Insulin Isophane) 100 Unit/1 Ml Vial 31 Unit SQ [id number] Robaxin-750 (Methocarbamol) 750 Mg Tablet 1 Tab PO TID Gabapentin (Gabapentin) 300 Mg Capsule 300 Mg PO BID Jeannine Allergy (Fexofenadine Hcl) 180 Mg Tablet 1 Tab PO DAILY Geodon (Ziprasidone Hcl) 80 Mg Capsule 1 Cap PO BID Atorvastatin Calcium 10 Mg Tablet 10 Mg PO HS Nuvigil (Armodafinil) 250 Mg Tablet 1 Tab PO DAILYWBKFT Glimepiride 4 Mg Tablet 1 Tab PO DAILY Losartan-Hctz 50-12.5 Mg Tab (Losartan/Hydrochlorothiazide) 1 Each Tablet 1 Tab PO DAILY Proair Hfa Inhaler (Albuterol Sulfate) 8.5 Gm Hfa.aer.ad 1 Puff INH PRN Q6HRS PRN Trileptal (Oxcarbazepine) 150 Mg Tablet 3 Tab PO BID Cymbalta (Duloxetine Hcl) 20 Mg Capsule.dr 120 Mg PO DAILY Trazodone Hcl 300 Mg Tablet 200 Mg PO QHS Vitals/I & O Vital Sign - Last 24 Hours 10/15/18 10/15/18 10/15/18 10/15/18 11:00 11:08 11:15 11:30 Temp 97.6 97.6 Pulse 76 77 78 78 Resp 20 B/P (MAP) 174/76 (108) Pulse Ox 97 97 97 97 O2 Delivery Room Air 10/15/18 10/15/18 10/15/18 10/15/18 11:45 12:00 12:15 12:30 Pulse 80 78 76 78 Pulse Ox 96 97 97 97 10/15/18 10/15/18 10/15/18 10/15/18 12:45 13:00 13:45 14:00 Pulse 80 78 78 Pulse Ox 97 97 98 O2 Delivery Room Air 10/15/18 10/15/18 10/15/18 10/15/18 14:15 14:30 14:32 14:45 Temp 98.1 98.1 Pulse 80 78 80 Resp 16 16 16 18 B/P (MAP) 140/66 (90) 145/59 (87) 142/55 (84) Pulse Ox 92 95 89 O2 Delivery Room Air Room Air Room Air Room Air 10/15/18 10/15/18 10/15/18 10/15/18 15:00 15:15 15:27 15:30 Pulse 80 80 76 Resp 16 18 16 16 B/P (MAP) 146/60 (88) 147/56 (86) 140/46 (77) Pulse Ox 93 95 99 O2 Delivery Room Air Room Air Nasal Cannula Nasal Cannula O2 Flow Rate 3.0 3.0 10/15/18 10/15/18 10/15/18 10/15/18 15:45 16:00 16:00 16:30 Temp 97.7 97.7 Pulse 75 78 78 Resp 18 16 12 B/P (MAP) 140/59 (86) 145/56 (85) 135/54 (81) Pulse Ox 99 98 99 O2 Delivery Nasal Cannula Nasal Cannula Room Air Nasal Cannula O2 Flow Rate 2.0 2.0 2.0 10/15/18 10/15/1810/15/10/15/18 17:00 17:30 18:00 18:31 Pulse 78 88 74 76 Resp 18 16 16 16 B/P (MAP) 130/47 (74) 137/70 (92) 117/57 (77) 135/57 (83) Pulse Ox 95 96 95 97 O2 Delivery Room Air Room Air Nasal Cannula BiPAP/CPAP O2 Flow Rate 2.0 10/15/18 10/15/18 10/15/18 10/15/18 19:00 19:36 20:11 20:33 Pulse 76 76 76 76 Resp 16 18 18 20 B/P (MAP) 83/49 (60) 131/55 (80) 140/63 (88) 114/58 (76) Pulse Ox 97 95 95 94 O2 Delivery BiPAP/CPAP BiPAP/CPAP BiPAP/CPAP BiPAP/CPAP 10/15/18 10/15/18 10/15/18 10/16/18 21:00 22:00 23:00 00:01 Pulse 72 74 72 70 Resp 18 18 18 18 B/P (MAP) 135/57 (83) 140/53 (82) 132/60 (84) 114/45 (68) Pulse Ox 93 96 93 94 O2 Delivery BiPAP/CPAP BiPAP/CPAP BiPAP/CPAP BiPAP/CPAP 4/19/19 4/19/19 4/19/19 4/19/19 00:01 01:00 02:06 02:59 Pulse 77 71 69 Resp 20 20 18 B/P (MAP) 130/48 (75) 129/55 (79) 140/61 (87) Pulse Ox 94 94 95 O2 Delivery Room Air BiPAP/CPAP Room Air BiPAP/CPAP O2 Flow Rate 2.0 10/16/18 10/16/18 10/16/18 10/16/18 04:00 04:00 05:13 06:12 Temp 97.0 97.0 Pulse 74 70 71 Resp 20 18 18 B/P (MAP) 145/54 (84) 140/53 (82) 166/61 (96) Pulse Ox 94 94 93 O2 Delivery BiPAP/CPAP Room Air BiPAP/CPAP BiPAP/CPAP 10/16/18 10/16/18 10/16/18 10/16/18 07:00 08:00 08:00 08:56 Pulse 78 79 78 Resp 16 12 14 B/P (MAP) 125/54 (77) 132/64 (86) 144/63 (90) Pulse Ox 95 95 O2 Delivery Room Air Room Air Room Air Room Air Intake and Output 10/15/18 10/15/18 10/16/18 15:00 23:00 07:00 Intake Total 131 ml 1299.22 ml 150 ml Output Total 0 ml 1100 ml 2050 ml Balance 131 ml 199.22 ml -1900 ml MARIANNE GRANADOS MD Oct 16, 2018 09:48
[2018-10-16] MEDS: hydroCHLOROthiazide 12.5 MG CAPSULE PO SCH (10:08)
[2018-10-16] MEDS: LOSARTAN POTASSIUM 50 MG TABLET. PO SCH (10:09)
[2018-10-16] MEDS: GABAPENTIN 300 MG CAPSULE. PO SCH ×2 (10:09→21:15)
[2018-10-16] MEDS: GLIMEPIRIDE 2 MG TABLET. PO SCH (10:09)
[2018-10-16] MEDS: OXcarbazepine 300 MG TABLET PO SCH ×2 (10:10→21:16)
[2018-10-16] MEDS: ZIPRASIDONE 20 MG CAPSULE PO SCH ×2 (10:44→21:15)
[2018-10-16] MEDS: INSULIN GLARGINE 300 UNITS/3 ML INSULN.PEN. SQ SCH ×2 (10:47→18:00)
--- NOTE | 2018-10-16 12:51 | RAD ---
MRI Brain without contrast History: 24 hours post TPA, left weakness Technique: Multiplanar, multisequential noncontrast MR imaging was performed of the brain. Comparison: January 16, 2018 Findings: There is some motion degradation. There is no evidence of recent infarct or cytotoxic edema. The ventricles, sulci, and cisterns are within normal limits in size and configuration. There is no significant midline shift, intraaxial mass effect, or focal abnormal extra-axial fluid collection. There is no new significant signal abnormality of the brain parenchyma. There is preservation of the major intracranial flow-voids at the skull base. The mastoid air cells are aerated. The cerebellar tonsils are normal in location. There is no significant abnormality of the pineal gland or pituitary gland. Paranasal sinuses are overall aerated. There is preserved marrow signal of the clivus. Impression: 1. There is no new significant intracranial abnormality, no evidence of recent infarct. Electronically signed by: Eder Rubio MD (10/16/2018 12:48 PM) [id number]
[2018-10-16] MEDS ORDERED: traZODone 100 MG TABLET. PO SCH (21:00)
[2018-10-16] MEDS: ATORVASTATIN CALCIUM 10 MG TABLET. PO SCH (21:15)
[2018-10-17] VITALS (9 sets, daily range): BP systolic 114–146; BP diastolic 44–65
[2018-10-17] MEDS ORDERED: NON FORMULARY ITEM (Armodafinil (Nuvigil) 1 TAB) PO SCH (08:00)
[2018-10-17] MEDS: hydroCHLOROthiazide 12.5 MG CAPSULE PO SCH (08:01)
[2018-10-17] MEDS: GABAPENTIN 300 MG CAPSULE. PO SCH (08:01)
[2018-10-17] MEDS: GLIMEPIRIDE 2 MG TABLET. PO SCH (08:01)
[2018-10-17] MEDS: LOSARTAN POTASSIUM 50 MG TABLET. PO SCH (08:01)
[2018-10-17] MEDS: DULoxetine HCL 30 MG CAPSULE.DR PO SCH (08:03)
[2018-10-17] MEDS: CETIRIZINE HCL 10 MG TABLET. PO SCH (08:03)
[2018-10-17] MEDS: OXcarbazepine 300 MG TABLET PO SCH (08:03)
[2018-10-17] MEDS: ZIPRASIDONE 20 MG CAPSULE PO SCH (08:03)
[2018-10-17] MEDS: INSULIN GLARGINE 300 UNITS/3 ML INSULN.PEN. SQ SCH (08:13)
--- NOTE | 2018-10-17 09:47 | PDOC ---
PROGRESS NOTES Chief Complaint Chief Complaint Brainstem stroke symptoms but atypical findings of lack of nystagmus and diplopia in all directions of gaze. Also consider migraine phenomenon, psychiatric disorder, metabolic issues. None are apparent, though. Diabetic neuropathy Meralgia paresthetica Anxiety and depression Obstructive sleep apnea History of migraines S/p cardiac catheterization here 09/02/18, negative History of Present Illness History of Present Illness 10/15/18 at approximately 9:30 AM she noted acute onset of severe vertigo, diplopia and sensation of her balance being off. Patient denies any previous episodes. Symptoms were severe and patient fell with injury to left upper arm. Patient denies any ocular pain. Patient does report mild headache behind her eyes. Patient largely with complaint of significant dizziness/vertigo. No nausea , vomiting. Patient does have history of migraines. 10/16: She is status-post alteplase with negative head CT, now with extensive bruising. Seen by neurology. MRI confirmed no acute CVA. ASA on hold. She is on bedrest, frustrated by this, wishes for a shower, has word finding and object identification difficulty today. Wore CPAP last night, awaiting PT/OT evaluation. She really wants to leave to plan [facility] for her children. Mild word finding difficulty Plan: Can likely d/c home with home health today if ok with neuro. Vitals Vitals Vital Signs Date Time Temp Pulse Resp B/P (MAP) Pulse Ox O2 Delivery O2 Flow Rate FiO2 10/17/18 08:01 68 114/44 10/17/18 06:00 20 95 BiPAP/CPAP 10/17/18 04:00 97.8 97.8 10/16/18 16:00 2.0 Physical Exam General: Alert, Oriented X3, Cooperative, No acute distress Abdomen: Soft Extremities: No cyanosis Skin: No significant lesion Labs LABS Laboratory Tests Test 10/16/18 13:34 10/16/18 18:25 Glucose (Fingerstick) 143 mg/dL (70-99) 77 mg/dL (70-99) Assessment and Plan Assessmemt and Plan Problems Medical Problems: (1) Acute CVA (cerebrovascular accident) Status: Acute (2) Diplopia Status: Acute (3) Vertigo Status: Acute Comment Review of Relevant I have reviewed the following items kathy (where applicable) has been applied. Labs Laboratory Tests Test 10/15/18 11:36 10/15/18 11:50 10/15/18 12:57 10/15/18 17:13 Glucose (Fingerstick) 212 mg/dL (70-99) 219 mg/dL (70-99) 114 mg/dL (70-99) White Blood Count 9.6 x10^3/uL (4.0-11.0) Red Blood Count 4.02 x10^6/uL (3.50-5.40) Hemoglobin 12.6 g/dL (12.0-15.5) Hematocrit 37.8 % (36.0-47.0) Mean Corpuscular Volume 94 fL (79-100) Mean Corpuscular Hemoglobin 31 pg (25-35) Mean Corpuscular Hemoglobin Concent 33 g/dL (31-37) Red Cell Distribution Width 13.3 % (11.5-14.5) Platelet Count 320 x10^3/uL (140-400) Prothrombin Time 14.1 SEC (11.7-14.0) Prothromb Time International Ratio 1.1 (0.8-1.1) Activated Partial Thromboplast Time 30 SEC (24-38) Sodium Level 135 mmol/L (136-145) Potassium Level 3.8 mmol/L (3.5-5.1) Chloride Level 96 mmol/L (98-107) Carbon Dioxide Level 31 mmol/L (21-32) Anion Gap 8 (6-14) Blood Urea Nitrogen 15 mg/dL (7-20) Creatinine 0.8 mg/dL (0.6-1.0) Estimated GFR (Cockcroft-Gault) 75.3 Glucose Level 222 mg/dL (70-99) Hemoglobin A1c 7.7 % (4.8-5.6) Calcium Level 9.1 mg/dL (8.5-10.1) Test 10/15/18 17:30 10/15/18 21:17 10/16/18 04:30 10/16/18 13:34 Nasal Screen MRSA (PCR) Negative (Negative) Glucose (Fingerstick) 152 mg/dL (70-99) 143 mg/dL (70-99) White Blood Count 8.2 x10^3/uL (4.0-11.0) Red Blood Count 3.38 x10^6/uL (3.50-5.40) Hemoglobin 10.8 g/dL (12.0-15.5) Hematocrit 32.3 % (36.0-47.0) Mean Corpuscular Volume 96 fL (79-100) Mean Corpuscular Hemoglobin 32 pg (25-35) Mean Corpuscular Hemoglobin Concent 34 g/dL (31-37) Red Cell Distribution Width 13.0 % (11.5-14.5) Platelet Count 282 x10^3/uL (140-400) Neutrophils (%) (Auto) 51 % (31-73) Lymphocytes (%) (Auto) 37 % (24-48) Monocytes (%) (Auto) 8 % (0-9) Eosinophils (%) (Auto) 4 % (0-3) Basophils (%) (Auto) 1 % (0-3) Neutrophils # (Auto) 4.2 x10^3uL (1.8-7.7) Lymphocytes # (Auto) 3.0 x10^3/uL (1.0-4.8) Monocytes # (Auto) 0.6 x10^3/uL (0.0-1.1) Eosinophils # (Auto) 0.4 x10^3/uL (0.0-0.7) Basophils # (Auto) 0.1 x10^3/uL (0.0-0.2) Sodium Level 135 mmol/L (136-145) Potassium Level 3.8 mmol/L (3.5-5.1) Chloride Level 98 mmol/L (98-107) Carbon Dioxide Level 31 mmol/L (21-32) Anion Gap 6 (6-14) Blood Urea Nitrogen 13 mg/dL (7-20) Creatinine 0.8 mg/dL (0.6-1.0) Estimated GFR (Cockcroft-Gault) 75.3 BUN/Creatinine Ratio 16 (6-20) Glucose Level 174 mg/dL (70-99) Calcium Level 8.6 mg/dL (8.5-10.1) Total Bilirubin 0.2 mg/dL (0.2-1.0) Aspartate Amino Transf (AST/SGOT) 19 U/L (15-37) Alanine Aminotransferase (ALT/SGPT) 26 U/L (14-59) Alkaline Phosphatase 114 U/L (46-116) Total Protein 7.0 g/dL (6.4-8.2) Albumin 3.4 g/dL (3.4-5.0) Albumin/Globulin Ratio 0.9 (1.0-1.7) Triglycerides Level 186 mg/dL (0-150) Cholesterol Level 164 mg/dL (0-200) LDL Cholesterol, Calculated 91 mg/dL (0-100) VLDL Cholesterol, Calculated 37 mg/dL (0-40) Non-HDL Cholesterol Calculated 128 mg/dL (0-129) HDL Cholesterol 36 mg/dL (40-60) Cholesterol/HDL Ratio 4.6 Test 10/16/18 18:25 Glucose (Fingerstick) 77 mg/dL (70-99) Laboratory Tests Test 10/16/18 13:34 10/16/18 18:25 Glucose (Fingerstick) 143 mg/dL (70-99) 77 mg/dL (70-99) Medications Current Medications Alteplase, Recombinant 0 ml @ 0 mls/hr 1X ONCE IV Last administered on at 11:57; Start 10/15/18 at 11:45; Stop 10/15/18 at 11:46; Status DC Alteplase, Recombinant 0 ml @ 0 mls/hr Q1H IV Last administered on 10/15/18at 12 :03; Start 10/15/18 at 11:45; Stop 10/15/18 at 11:46; Status DC Sodium Chloride 50 ml @ 0 mls/hr 1X ONCE IV Last administered on 10/15/18at 12: 52; Start 10/15/18 at 11:45; Stop 10/15/18 at 11:46; Status DC Labetalol HCl (Normodyne Iv Push) 10 mg PRN Q10MIN PRN IVP HYPERTENSION, SEE COMMENTS; Start 10/15/18 at 11:45; Status Cancel Nicardipine HCl 50 mg/Sodium Chloride 250 ml @ 25 mls/hr CONT PRN PRN IV HYPERTENSION, SEE COMMENTS; Start 10/15/18 at 11:45; Status Cancel Iohexol (Omnipaque 350 Mg/ml) 75 ml 1X ONCE IV ; Start 10/15/18 at 13:00; Stop 10/15/18 at 13:01; Status DC Info (CONTRAST GIVEN -- Rx MONITORING) 1 each PRN DAILY PRN MC SEE COMMENTS; Start 10/15/18 at 13:00; Stop 10/17/18 at 12:59 Morphine Sulfate (Morphine Sulfate) 2 mg PRN Q2HR PRN IV PAIN; Start 10/15/18 at 13:00; Stop 10/16/18 at 12:59; Status DC Morphine Sulfate (Morphine Sulfate) 2 mg 1X ONCE IV Last administered on at 14:32; Start 10/15/18 at 13:00; Stop 10/15/18 at 13:01; Status DC Sodium Chloride 1,000 ml @ 100 mls/hr Q10H IV Last administered on 10/15/18at 14:32; Start 10/15/18 at 13:19; Stop 10/15/18 at 23:18; Status DC Albuterol Sulfate (Ventolin Neb Soln) 2.5 mg PRN Q6HRS PRN INH SHORTNESS OF BREATH; Start 10/15/18 at 13:30 Atorvastatin Calcium (Lipitor) 10 mg HS PO Last administered on 10/16/18at 21:15 ; Start 10/15/18 at 21:00 Duloxetine HCl (Cymbalta) 120 mg DAILY PO Last administered on 10/17/18at 08:03 ; Start 10/15/18 at 14:00 Cetirizine HCl (ZyrTEC) 10 mg DAILY PO Last administered on 10/17/18at 08:03; Start 10/15/18 at 15:00 Labetalol HCl (Normodyne Iv Push) 10 mg PRN Q10MIN PRN IVP HYPERTENSION, 2ND CHOICE; Start 10/15/18 at 14:00 Nicardipine HCl 50 mg/Sodium Chloride 250 ml @ 25 mls/hr CONT PRN PRN IV HYPERTENSION, SEE COMMENTS; Start 10/15/18 at 14:00 Acetaminophen (Tylenol) 650 mg PRN Q6HRS PRN PO MILD PAIN / TEMP Last administered on 10/15/18at 19:29; Start 10/15/18 at 14:00 Acetaminophen (Tylenol Supp) 325 mg PRN Q6HRS PRN PA MILD PAIN / TEMP; Start at 14:00 Ondansetron HCl (Zofran) 4 mg PRN Q6HRS PRN IV NAUSEA/VOMITING Last administered on 10/16/18at 07:23; Start 10/15/18 at 14:00 Gabapentin (Neurontin) 300 mg BID PO Last administered on 10/17/18 08:01; Start 10/16/18 at 10:00 Non-Formulary Medication (Armodafinil (Nuvigil)) 1 tab DAILYWBKFT PO ; Start at 08:00; Status UNV Glimepiride (Amaryl) 4 mg DAILY PO Last administered on 10/17/18 08:01; Start 10/16/18 at 10:00 Losartan Potassium (Cozaar) 50 mg DAILY PO Last administered on 10/17/18 08:01 ; Start 10/16/18 at 11:00 Insulin Glargine (Lantus) 15 units BID76 SQ Last administered on 10/17/18 08: 13; Start 10/16/18 at 11:00 Oxcarbazepine (Trileptal) 450 mg BID PO Last administered on 10/17/18 08:03; Start 10/16/18 at 10:00 Trazodone HCl (Desyrel) 200 mg QHS PO Last administered on 10/16/18 21:16; Start 10/16/18 at 21:00 Ziprasidone (Geodon) 80 mg BID PO Last administered on 10/17/18 08:03; Start 10/16/18 at 10:15 Hydrochlorothiazide (Microzide) 12.5 mg DAILY PO Last administered on 08:01; Start 10/16/18 at 11:00 Active Scripts Active Reported Novolin N (Nph, Human Insulin Isophane) 100 Unit/1 Ml Vial 31 Unit SQ BID76 Robaxin-750 (Methocarbamol) 750 Mg Tablet 1 Tab PO TID Gabapentin (Gabapentin) 300 Mg Capsule 300 Mg PO BID Jeannine Allergy (Fexofenadine Hcl) 180 Mg Tablet 1 Tab PO DAILY Geodon (Ziprasidone Hcl) 80 Mg Capsule 1 Cap PO BID Atorvastatin Calcium 10 Mg Tablet 10 Mg PO HS Nuvigil (Armodafinil) 250 Mg Tablet 1 Tab PO DAILYWBKFT Glimepiride 4 Mg Tablet 1 Tab PO DAILY Losartan-Hctz 50-12.5 Mg Tab (Losartan/Hydrochlorothiazide) 1 Each Tablet 1 Tab PO DAILY Proair Hfa Inhaler (Albuterol Sulfate) 8.5 Gm Hfa.aer.ad 1 Puff INH PRN Q6HRS PRN Trileptal (Oxcarbazepine) 150 Mg Tablet 3 Tab PO BID Cymbalta (Duloxetine Hcl) 20 Mg Capsule.dr 120 Mg PO DAILY Trazodone Hcl 300 Mg Tablet 200 Mg PO QHS Vitals/I & O Vital Sign - Last 24 Hours 10/16/18 10/16/18 10/16/18 10/16/18 10:00 10:09 11:00 12:00 Temp 98.1 98.1 Pulse 74 76 78 Resp 16 B/P (MAP) 154/59 (90) 154/59 166/71 (102) Pulse Ox 92 96 O2 Delivery Room Air Room Air Room Air O2 Flow Rate 2.0 10/16/18 10/16/18 10/16/18 10/16/18 13:00 15:00 16:00 16:00 Temp 98.1 98.1 Pulse 68 68 66 Resp 12 12 12 B/P (MAP) 151/55 (87) 110/46 (67) 105/45 (65) Pulse Ox 94 93 93 O2 Delivery BiPAP/CPAP BiPAP/CPAP BiPAP/CPAP Room Air O2 Flow Rate 2.0 10/16/18 10/16/18 10/16/18 10/16/18 17:00 18:00 19:01 20:00 Temp 98.6 98.6 Pulse 68 78 78 Resp 12 12 12 B/P (MAP) 115/62 (79) 123/48 (73) 121/51 (74) Pulse Ox 93 96 90 O2 Delivery BiPAP/CPAP Room Air Room Air Room Air 10/16/18 10/16/18 10/16/18 10/16/18 20:00 21:00 22:00 23:00 Pulse 78 68 68 62 Resp 12 16 18 18 B/P (MAP) 123/52 (75) 132/55 (80) 131/53 (79) 118/46 (70) Pulse Ox 89 94 95 94 O2 Delivery Room Air BiPAP/CPAP BiPAP/CPAP BiPAP/CPAP 10/17/18 10/17/18 10/17/18 10/17/18 00:01 00:03 00:04 01:00 Pulse 60 60 Resp 18 18 B/P (MAP) 118/54 (75) 114/49 (70) Pulse Ox 95 95 O2 Delivery Room Air BiPAP/CPAP BiPAP/CPAP BiPAP/CPAP 10/17/18 10/17/18 10/17/18 10/17/18 02:16 04:00 04:00 05:21 Temp 97.8 97.8 Pulse 61 61 63 Resp 18 20 20 B/P (MAP) 133/54 (80) 128/63 (84) 146/65 (92) Pulse Ox 96 97 95 O2 Delivery BiPAP/CPAP Room Air BiPAP/CPAP BiPAP/CPAP 10/17/18 10/17/18 06:00 08:01 Pulse 68 68 Resp 20 B/P (MAP) 114/44 (67) 114/44 Pulse Ox 95 O2 Delivery BiPAP/CPAP Intake and Output 10/16/18 10/16/18 10/17/18 15:00 23:00 07:00 Intake Total 750 ml 300 ml 100 ml Output Total 1 ml 3 ml 3 ml Balance 749 ml 297 ml 97 ml Images MRI - There is some motion degradation. There is no evidence of recent infarct or cytotoxic edema. The ventricles, sulci, and cisterns are within normal limits in size and configuration. There is no significant midline shift, intraaxial mass effect, or focal abnormal extra-axial fluid collection. There is no new significant signal abnormality of the brain parenchyma. There is preservation of the major intracranial flow-voids at the skull base. The mastoid air cells are aerated. The cerebellar tonsils are normal in location. There is no significant abnormality of the pineal gland or pituitary gland. Paranasal sinuses are overall aerated. There is preserved marrow signal of the clivus. Impression: 1. There is no new significant intracranial abnormality, no evidence of recent infarct. MARIANNE GRANADOS MD Oct 17, 2018 09:47
[2018-10-17 10:05] LABS: BASO % 1 % (0-3); EOS # 0.3 x10^3/uL (0.0-0.7); EOS % 4 % (0-3); HEMATOCRIT 31.8 % (36.0-47.0); HEMOGLOBIN 10.5 g/dL (12.0-15.5); LYMPH % 41 % (24-48); MEAN CORPUSCULAR HEMOGLOBIN 32 pg (25-35); MEAN CORPUSCULAR HGB CONC 33 g/dL (31-37); MEAN CORPUSCULAR VOLUME 96 fL (79-100); MONO # 0.5 x10^3/uL (0.0-1.1); MONO % 7 % (0-9); NEUT # 3.4 x10^3uL (1.8-7.7); NEUT % 47 % (31-73); PLATELET COUNT 268 x10^3/uL (140-400); RED BLOOD COUNT 3.31 x10^6/uL (3.50-5.40); RED CELL DISTRIBUTION WIDTH 13.2 % (11.5-14.5); WHITE BLOOD COUNT 7.2 x10^3/uL (4.0-11.0)
[2018-10-17] MEDS ORDERED: ATOR40TA59 PO (10:39)
[2018-10-17] MEDS ORDERED: ASPI-612 PO (10:44)
--- NOTE | 2018-10-17 10:46 | SNU/HH DC ---
DISCHARGE WITH HOME HEALTH DISCHARGE INFORMATION: Discharge Date: Oct 17, 2018 Final Diagnosis: Problems Medical Problems: (1) Acute CVA (cerebrovascular accident) Status: Acute (2) Diplopia Status: Acute (3) Vertigo Status: Acute Condition on Discharge: Stable CODE STATUS: Code Status: Full HOME HEALTH: Face to Face: I certify this patient is under my care and that I, or a nurse practitioner or physician's automobile mechanic assistant working with me, had a face to face encounter that meets the physician face to face encounter requirements with this patient on 10/17/18. Medical Complications: CVA, DM, Falls, Other (MARGARITA on CPAP) Senior Living For: Assess & Educate Safety, Diabetic Care, Medication Management RN For Eval/Treatment: Yes Physical Therapy For: Evalulation/Treatment Occupational Therapy For: Evaluation/Treatment Home Health Aide For: Self-care Pt Meets Homebound Status: Unsteady balance w/ amb, POST DISCHARGE ORDERS: Activity Instructions for Disc: No restrictions Weight Bearing Status after Di: No restrictions DIET AFTER DISCHARGE: ADA CHECKS AFTER DISCHARGE: Checks after discharge: Check blood press - daily, Check blood sugar, ac/hs, Check your Temp as needed TREATMENT/EQUIPMENT ORDERS: Adaptive Equipment Issued: Front wheeled walker CERTIFICATION STATEMENT: Certification Statement: Certification Statement: Based on the above finding, I certify that this patient is confined to the home and needs intermittent group home care, physical therapy and/or speech therapy, or continues to need occupational therapy.~ This patient is under my care, and I have initiated the establishment of the plan of care.~ This patient will be followed by myself or a community physician who will periodically review the plan of care. Home Meds Active Scripts Aspirin (ASPIRIN EC) 81 Mg Tablet.dr, 1 TAB PO DAILY for 30 for 30 Days, #30 TAB 3 Refills Prov:MARIANNE GRANADOS MD 10/17/18 Atorvastatin Calcium (ATORVASTATIN CALCIUM) 40 Mg Tablet, 1 TAB PO DAILY for CVA for 30 Days, #30 TAB 5 Refills Prov:MARIANNE GRANADOS MD 10/17/18 Reported Medications Nph, Human Insulin Isophane (NOVOLIN N) 100 Unit/1 Ml Vial, 31 UNIT SQ BID76 for diabetes, VIAL 09/02/18 Gabapentin (GABAPENTIN ) 300 Mg Capsule, 300 MG PO BID for NEUROGENIC PAIN, CAP 09/02/18 Fexofenadine Hcl (ELISEO ALLERGY) 180 Mg Tablet, 1 TAB PO DAILY for allergies, #30 TAB 2 Refills 09/02/18 Ziprasidone Hcl (GEODON) 80 Mg Capsule, 1 CAP PO BID for antipsychotic, #60 CAP 1 Refill 09/02/18 Armodafinil (NUVIGIL) 250 Mg Tablet, 1 TAB PO DAILYWBKFT for to help me stay awake, #30 TAB 09/02/18 Glimepiride (GLIMEPIRIDE) 4 Mg Tablet, 1 TAB PO DAILY for blood sugar, #30 TAB 5 Refills 09/02/18 Losartan/Hydrochlorothiazide (LOSARTAN-HCTZ 50-12.5 MG TAB) 1 Each Tablet, 1 TAB PO DAILY for blood pressure, #30 TAB 5 Refills 09/02/18 Albuterol Sulfate (PROAIR HFA INHALER) 8.5 Gm Hfa.aer.ad, 1 PUFF INH PRN Q6HRS PRN for SHORTNESS OF BREATH, INHALER 0 Refills 12/13/16 Oxcarbazepine (TRILEPTAL) 150 Mg Tablet, 3 TAB PO BID for seizures, #60 TAB 2 Refills 12/13/16 Duloxetine Hcl (CYMBALTA) 20 Mg Capsule.dr, 120 MG PO DAILY for bipolar disorder , #30 CAP 2 Refills 12/13/16 Trazodone Hcl (TRAZODONE HCL) 300 Mg Tablet, 200 MG PO QHS for sleep, #30 TAB 1 Refill 12/13/16 Discontinued Reported Medications Methocarbamol (ROBAXIN-750) 750 Mg Tablet, 1 TAB PO TID for pain and spasms, # 90 TAB 09/02/18 Atorvastatin Calcium (ATORVASTATIN CALCIUM) 10 Mg Tablet, 10 MG PO HS for FOR CHOLESTEROL, #30 TAB 0 Refills 09/02/18 MARIANNE GRANADOS MD Oct 17, 2018 10:46
--- NOTE | 2018-10-17 10:50 | PDOC3 ---
Discharge Summary Visit Information Date of Admission: Oct 15, 2018 Date of Discharge: Oct 17, 2018 Admitting Diagnosis: Acute CVA Final Diagnosis Problems Medical Problems: (1) Acute CVA (cerebrovascular accident) Status: Acute (2) Diplopia Status: Acute (3) Vertigo Status: Acute Brief Hospital Course Allergies Allergies Coded Allergies Type Severity Reaction Last Updated Verified erythromycin base Allergy Intermediate 10/17/18 Yes insulin aspart Allergy Intermediate 09/01/18 Yes insulin aspart protamine human Allergy Intermediate 09/01/18 Yes lithium Allergy Intermediate 09/01/18 Yes Vital Signs Vital Signs Date Time Temp Pulse Resp B/P (MAP) Pulse Ox O2 Delivery O2 Flow Rate FiO2 10/17/18 08:01 68 114/44 10/17/18 08:00 Room Air 10/17/18 06:00 20 95 10/17/18 04:00 97.8 97.8 10/16/18 16:00 2.0 Lab Results Laboratory Tests Test 10/15/18 11:36 10/15/18 11:50 10/15/18 12:57 10/15/18 17:13 Glucose (Fingerstick) 212 mg/dL (70-99) 219 mg/dL (70-99) 114 mg/dL (70-99) White Blood Count 9.6 x10^3/uL (4.0-11.0) Red Blood Count 4.02 x10^6/uL (3.50-5.40) Hemoglobin 12.6 g/dL (12.0-15.5) Hematocrit 37.8 % (36.0-47.0) Mean Corpuscular Volume 94 fL (79-100) Mean Corpuscular Hemoglobin 31 pg (25-35) Mean Corpuscular Hemoglobin Concent 33 g/dL (31-37) Red Cell Distribution Width 13.3 % (11.5-14.5) Platelet Count 320 x10^3/uL (140-400) Prothrombin Time 14.1 SEC (11.7-14.0) Prothromb Time International Ratio 1.1 (0.8-1.1) Activated Partial Thromboplast Time 30 SEC (24-38) Sodium Level 135 mmol/L (136-145) Potassium Level 3.8 mmol/L (3.5-5.1) Chloride Level 96 mmol/L (98-107) Carbon Dioxide Level 31 mmol/L (21-32) Anion Gap 8 (6-14) Blood Urea Nitrogen 15 mg/dL (7-20) Creatinine 0.8 mg/dL (0.6-1.0) Estimated GFR (Cockcroft-Gault) 75.3 Glucose Level 222 mg/dL (70-99) Hemoglobin A1c 7.7 % (4.8-5.6) Calcium Level 9.1 mg/dL (8.5-10.1) Test 10/15/18 17:30 10/15/18 21:17 10/16/18 04:30 10/16/18 13:34 Nasal Screen MRSA (PCR) Negative (Negative) Glucose (Fingerstick) 152 mg/dL (70-99) 143 mg/dL (70-99) White Blood Count 8.2 x10^3/uL (4.0-11.0) Red Blood Count 3.38 x10^6/uL (3.50-5.40) Hemoglobin 10.8 g/dL (12.0-15.5) Hematocrit 32.3 % (36.0-47.0) Mean Corpuscular Volume 96 fL (79-100) Mean Corpuscular Hemoglobin 32 pg (25-35) Mean Corpuscular Hemoglobin Concent 34 g/dL (31-37) Red Cell Distribution Width 13.0 % (11.5-14.5) Platelet Count 282 x10^3/uL (140-400) Neutrophils (%) (Auto) 51 % (31-73) Lymphocytes (%) (Auto) 37 % (24-48) Monocytes (%) (Auto) 8 % (0-9) Eosinophils (%) (Auto) 4 % (0-3) Basophils (%) (Auto) 1 % (0-3) Neutrophils # (Auto) 4.2 x10^3uL (1.8-7.7) Lymphocytes # (Auto) 3.0 x10^3/uL (1.0-4.8) Monocytes # (Auto) 0.6 x10^3/uL (0.0-1.1) Eosinophils # (Auto) 0.4 x10^3/uL (0.0-0.7) Basophils # (Auto) 0.1 x10^3/uL (0.0-0.2) Sodium Level 135 mmol/L (136-145) Potassium Level 3.8 mmol/L (3.5-5.1) Chloride Level 98 mmol/L (98-107) Carbon Dioxide Level 31 mmol/L (21-32) Anion Gap 6 (6-14) Blood Urea Nitrogen 13 mg/dL (7-20) Creatinine 0.8 mg/dL (0.6-1.0) Estimated GFR (Cockcroft-Gault) 75.3 BUN/Creatinine Ratio 16 (6-20) Glucose Level 174 mg/dL (70-99) Calcium Level 8.6 mg/dL (8.5-10.1) Total Bilirubin 0.2 mg/dL (0.2-1.0) Aspartate Amino Transf (AST/SGOT) 19 U/L (15-37) Alanine Aminotransferase (ALT/SGPT) 26 U/L (14-59) Alkaline Phosphatase 114 U/L (46-116) Total Protein 7.0 g/dL (6.4-8.2) Albumin 3.4 g/dL (3.4-5.0) Albumin/Globulin Ratio 0.9 (1.0-1.7) Triglycerides Level 186 mg/dL (0-150) Cholesterol Level 164 mg/dL (0-200) LDL Cholesterol, Calculated 91 mg/dL (0-100) VLDL Cholesterol, Calculated 37 mg/dL (0-40) Non-HDL Cholesterol Calculated 128 mg/dL (0-129) HDL Cholesterol 36 mg/dL (40-60) Cholesterol/HDL Ratio 4.6 Test 10/16/18 18:25 10/17/18 08:35 Glucose (Fingerstick) 77 mg/dL (70-99) White Blood Count 7.2 x10^3/uL (4.0-11.0) Red Blood Count 3.31 x10^6/uL (3.50-5.40) Hemoglobin 10.5 g/dL (12.0-15.5) Hematocrit 31.8 % (36.0-47.0) Mean Corpuscular Volume 96 fL (79-100) Mean Corpuscular Hemoglobin 32 pg (25-35) Mean Corpuscular Hemoglobin Concent 33 g/dL (31-37) Red Cell Distribution Width 13.2 % (11.5-14.5) Platelet Count 268 x10^3/uL (140-400) Neutrophils (%) (Auto) 47 % (31-73) Lymphocytes (%) (Auto) 41 % (24-48) Monocytes (%) (Auto) 7 % (0-9) Eosinophils (%) (Auto) 4 % (0-3) Basophils (%) (Auto) 1 % (0-3) Neutrophils # (Auto) 3.4 x10^3uL (1.8-7.7) Lymphocytes # (Auto) 3.0 x10^3/uL (1.0-4.8) Monocytes # (Auto) 0.5 x10^3/uL (0.0-1.1) Eosinophils # (Auto) 0.3 x10^3/uL (0.0-0.7) Basophils # (Auto) 0.0 x10^3/uL (0.0-0.2) Laboratory Tests Test 10/16/18 13:34 10/16/18 18:25 10/17/18 08:35 Glucose (Fingerstick) 143 mg/dL (70-99) 77 mg/dL (70-99) White Blood Count 7.2 x10^3/uL (4.0-11.0) Red Blood Count 3.31 x10^6/uL (3.50-5.40) Hemoglobin 10.5 g/dL (12.0-15.5) Hematocrit 31.8 % (36.0-47.0) Mean Corpuscular Volume 96 fL (79-100) Mean Corpuscular Hemoglobin 32 pg (25-35) Mean Corpuscular Hemoglobin Concent 33 g/dL (31-37) Red Cell Distribution Width 13.2 % (11.5-14.5) Platelet Count 268 x10^3/uL (140-400) Neutrophils (%) (Auto) 47 % (31-73) Lymphocytes (%) (Auto) 41 % (24-48) Monocytes (%) (Auto) 7 % (0-9) Eosinophils (%) (Auto) 4 % (0-3) Basophils (%) (Auto) 1 % (0-3) Neutrophils # (Auto) 3.4 x10^3uL (1.8-7.7) Lymphocytes # (Auto) 3.0 x10^3/uL (1.0-4.8) Monocytes # (Auto) 0.5 x10^3/uL (0.0-1.1) Eosinophils # (Auto) 0.3 x10^3/uL (0.0-0.7) Basophils # (Auto) 0.0 x10^3/uL (0.0-0.2) Brief Hospital Course Brainstem stroke symptoms but atypical findings of lack of nystagmus and diplopia in all directions of gaze. Also consider migraine phenomenon, psychiatric disorder, metabolic issues. None are apparent, though. Diabetic neuropathy Meralgia paresthetica Anxiety and depression Obstructive sleep apnea History of migraines S/p cardiac catheterization here 09/02/18, negative Ms Alyssa is a 52yo F w/ PMHx HTN, MARGARITA on CPAP, migraines, DM with neuropathy, BP disorder who at 10/15/18 at approximately 9:30 AM she noted acute onset of severe vertigo, diplopia and sensation of her balance being off. Patient denies any previous episodes. Symptoms were severe and patient fell with injury to left upper arm. Patient denies any ocular pain. Patient does report mild headache behind her eyes. Patient largely with complaint of significant dizziness/vertigo. No nausea, vomiting. 10/16: She is status-post alteplase for acute CVA with negative head CT, now with extensive bruising. Seen by neurology. MRI shows no acute CVA changes after alteplase. ASA on hold. She was on bedrest, frustrated by this, wishes for a shower, has word finding and object identification difficulty today. Wore CPAP last night, completed PT/OT evaluation. She really wants to leave to plan [facility] for her children. Mild word finding difficulty she describes as at her baseline. Has a walker at home for ambulation. Plan: Can likely d/c home with home health today if ok with neuro. Greater than 30 minutes spent on d/c Findings: Contrast bolus opacification of the intracranial vasculature is suboptimal. Evaluation of the petrous internal carotid arteries bilaterally is limited due to limited contrast opacification. There is small patent anterior communicating artery. Both vertebral arteries constitute the basilar artery. There is visualization of right PICA, not well seen on the left on this exam. AICAs are poorly visualized this exam. Superior cerebellar arteries are faintly visualized bilaterally. No significant posterior communicating arteries are visualized on either side. There is visualization of segments of bilateral anterior, middle, and posterior cerebral arteries, no obvious focal filling defect of the larger intracranial vessels. Of the visualized intracranial vasculature, no significant focal stenosis or aneurysm is identified. Impression: 1. Of the visualized intracranial vasculature, no significant focal stenosis or focal filling defect is identified. Exam is limited due to suboptimal contrast opacification of the intracranial vasculature, especially limited evaluation of the petrous internal carotid arteries and smaller intracranial vessels. Neck CTA: Findings: There is some motion. Contrast bolus in the arteries is suboptimal. There are normal anatomic origins of the great vessels. No convincing flow limiting dissection flap is identified. No significant focal stenosis is identified of the cervical arterial vasculature. Impression: 1. No significant focal stenosis or convincing flow limiting dissection flap is identified of the cervical arterial vasculature. However contrast bolus is suboptimal. Discharge Information Condition at Discharge: Improved Follow Up: Weeks (2) Disposition/Orders: D/C to Home w/ HH Scheduled Armodafinil (Nuvigil) 250 Mg Tablet, 1 TAB PO DAILYWBKFT for to help me stay awake, #30 (Reported) Entered as Reported by: IVON PEACE on 09/02/18820 Last Action: Converted on 10/16/18 09 by MARIANNE GRANADOS MD Aspirin (Aspirin Ec) 81 Mg Tablet., 1 TAB PO DAILY for 30 for 30 Days, #30 Ref 3 Prescribed by: MARIANNE GRANADOS MD on 10/17/18 1044 Atorvastatin Calcium (Atorvastatin Calcium) 40 Mg Tablet, 1 TAB PO DAILY for CVA for 30 Days, #30 Ref 5 Prescribed by: MARIANNE GRANADOS MD on 10/17/18 1039 Duloxetine Hcl (Cymbalta) 20 Mg Capsule.dr, 120 MG PO DAILY for bipolar disorder , #30 Ref 2 (Reported) Entered as Reported by: ELIANA LOPEZ on 12/13/16 0748 Last Action: Converted on 10/15/181321 by GABINO LONDON MD Fexofenadine Hcl (Jeannine Allergy) 180 Mg Tablet, 1 TAB PO DAILY for allergies, #30 Ref 2 (Reported) Entered as Reported by: IVON PEACE on 09/02/18820 Last Action: Converted on 10/15/181321 by GABINO LONDON MD Gabapentin (Gabapentin ) 300 Mg Capsule, 300 MG PO BID for NEUROGENIC PAIN, ( Reported) Entered as Reported by: IVON PEACE on 09/02/18820 Last Action: Continued on 10/16/18953 by MARIANNE GRANADOS MD Glimepiride (Glimepiride) 4 Mg Tablet, 1 TAB PO DAILY for blood sugar, #30 Ref 5 (Reported) Entered as Reported by: MATTIE BRYAN on 09/02/18612 Last Action: Converted on 10/16/18953 by MARIANNE GRANADOS MD Losartan/Hydrochlorothiazide (Losartan-Hctz 50-12.5 Mg Tab) 1 Each Tablet, 1 TAB PO DAILY for blood pressure, #30 Ref 5 (Reported) Entered as Reported by: MATTIE BRYAN on 09/02/18612 Last Action: Converted on 10/16/18953 by MARIANNE GRANADOS MD Nph, Human Insulin Isophane (Novolin N) 100 Unit/1 Ml Vial, 31 UNIT SQ BID76 for diabetes, (Reported) Entered as Reported by: IVON PEACE on 09/02/18820 Last Action: Converted on 10/16/18953 by MARIANNE GRANADOS MD Oxcarbazepine (Trileptal) 150 Mg Tablet, 3 TAB PO BID for seizures, #60 Ref 2 ( Reported) Entered as Reported by: ELIANA LOPEZ on 12/13/16748 Last Action: Converted on 10/16/18953 by MARIANNE GRANADOS MD Trazodone Hcl (Trazodone Hcl) 300 Mg Tablet, 200 MG PO QHS for sleep, #30 Ref 1 (Reported) Entered as Reported by: ELIANA LOPEZ on 12/13/16747 Last Action: Converted on 10/16/18953 by MARIANNE GRANADOS MD Ziprasidone Hcl (Geodon) 80 Mg Capsule, 1 CAP PO BID for antipsychotic, #60 Ref 1 (Reported) Entered as Reported by: IVON PEACE on 09/02/18820 Last Action: Converted on 10/16/18953 by MARIANNE GRANADOS MD Scheduled PRN Albuterol Sulfate (Proair Hfa Inhaler) 8.5 Gm Hfa.aer.ad, 1 PUFF INH PRN Q6HRS PRN for SHORTNESS OF BREATH, Ref 0 (Reported) Entered as Reported by: ELIANA LOPEZ on 12/13/16 0749 Last Action: Continued on 10/15/181321 by GABINO LONDON MD Discontinued Medications Atorvastatin Calcium (Atorvastatin Calcium) 10 Mg Tablet, 10 MG PO HS for FOR CHOLESTEROL, #30 Ref 0 (Reported) Discontinued Reason: Prescription changed Entered as Reported by: IVON PEACE on 09/02/18820 Last Action: Continued on 10/15/181321 by GABINO LONDON MD Methocarbamol (Robaxin-750) 750 Mg Tablet, 1 TAB PO TID for pain and spasms, #90 (Reported) Entered as Reported by: IVON PEACE on 09/02/18820 Last Action: HELD on 10/15/181321 by MD DARWIN OVERTON CHRISTOPHER S MD Oct 17, 2018 10:50
[2018-10-17] MEDS ORDERED: ASPIRIN 325 MG TABLET PO SCH (12:00)
--- NOTE | 2018-10-17 12:03 | NUR ---
FACULTY CO-SIGN I have reviewed the documentation by nursing program manager: Addendum: 10/17/18 at 1204 by JULIANE FERNANDEZ RN Amended: Links added.
--- NOTE | 2018-10-17 12:25 | NUR ---
Discharge education and medications reviewed. Stroke book given at discharge
--- NOTE | 2018-10-17 14:42 | PDOC ---
PROGRESS NOTES Assessment Assessment IMPRESSION: CVA syndrome, s/p TPA. Vertigo. Diplopia. Fall. Headache. DM. Diabetic neuropathy. MARGARITA. HLD. Morbid obesity. RECOMMENDATIONS/PLAN: Continue ASA 325 mg daily. Continue Lipitor HS. Treat medical diseases. Weight reduction. FU with PCP. FU with Dr. Siddiqui in [facility]. Brain MRI: Negative for acute findings. Past Medical History Cardiovascular: Other (Obstructive sleep apnea) CENTRAL NERVOUS SYSTEM: Dementia ( mild cognitive impairment), Periperal neuropathy GI: Other ( gastroparesis) Psych: Anxiety, Depression ENT: Other ( glaucoma) Endocrine: Diabetes Past Surgical History Past Surgical History: Cholecystectomy, Tubal Ligation, Tonsillectomy, Other ( right ankle fracture, bilateral carpal tunnel) Family History Family History: CAD, Other Social History , non-smoker, no alcohol, on disability Allergies Coded Allergies: erythromycin base (Unverified Allergy, Intermediate, 12/13/16) insulin aspart (Verified Allergy, Intermediate, 09/01/18) insulin aspart protamine human (Verified Allergy, Intermediate, 09/01/18) lithium (Verified Allergy, Intermediate, 09/01/18) ROS Review of System Negative for fever, chills, weight loss, shortness of breath, chest pain, indigestion, hematochezia, melena, and dysuria. Full 14-point review of systems is negative. MEDICATIONS: Refer to MAR PHYSICAL EXAMINATION: General appearance in no acute distress. HEENT: Normocephalic and nontraumatic. Eyes, nose, ears, and throat are unremarkable. Neck is supple. No lymphadenopathy. No bruits are heard over the carotid artery. No Crepitus. Cardiovascular: S1, S2, regular rate and rhythm. Pulmonary: Clear to auscultation bilaterally. Abdomen: Bowel sounds are positive. Abdomen is soft, nontender, and nondistended. Extremities: No rash, lesions, or edema. No restriction of range of motion NEUROLOGICAL EXAMINATION: Awake. Oriented to time, place and person. PERRL. EOMI. CN: no focal findings. Muscle tone: within normal. Muscle strength: 4+ DTR: 1+ Plantar reflex: Neutral response bilaterally Gait: At baseline normal. Sensory exam: no abnormal findings. No cerebellar signs elicited. F-T-N test accurate. Objective Objective Vital Signs Date Time Temp Pulse Resp B/P (MAP) Pulse Ox O2 Delivery O2 Flow Rate FiO2 4/20/19 12:19 69 20 133/44 (73) 95 Room Air 10/17/18 04:00 97.8 97.8 10/16/18 16:00 2.0 Intake and Output 10/17/18 07:00 Intake Total 1150 ml Output Total 7 ml Balance 1143 ml Intake Oral 1150 ml Output Urine Total 7 ml # Voids 3 Vitals Signs Vitals VS - Last 72 Hours, by Label Date Time Temp Pulse Resp B/P (MAP) Pulse Ox O2 Delivery O2 Flow Rate FiO2 10/17/18 12:19 69 20 133/44 (73) 95 Room Air 10/17/18 10:00 76 20 133/44 (73) 95 Room Air 10/17/18 08:01 68 114/44 10/17/18 08:00 Room Air 10/17/18 08:00 Room Air 10/17/18 07:00 74 20 145/44 (77) 95 Room Air 10/17/18 06:00 68 20 114/44 (67) 95 BiPAP/CPAP 10/17/18 05:21 63 20 146/65 (92) 95 BiPAP/CPAP 10/17/18 04:00 97.8 61 20 128/63 (84) 97 BiPAP/CPAP 97.8 10/17/18 04:00 Room Air 10/17/18 02:16 61 18 133/54 (80) 96 BiPAP/CPAP 10/17/18 01:00 60 18 114/49 (70) 95 BiPAP/CPAP 10/17/18 00:04 BiPAP/CPAP 10/17/18 00:03 60 18 118/54 (75) 95 BiPAP/CPAP 10/17/18 00:01 Room Air 10/16/18 23:00 62 18 118/46 (70) 94 BiPAP/CPAP 10/16/18 22:00 68 18 131/53 (79) 95 BiPAP/CPAP 10/16/18 21:00 68 16 132/55 (80) 94 BiPAP/CPAP 10/16/18 20:00 78 12 123/52 (75) 89 Room Air 10/16/18 20:00 Room Air 10/16/18 19:01 98.6 78 12 121/51 (74) 90 Room Air 98.6 10/16/18 18:00 78 12 123/48 (73) 96 Room Air 10/16/18 17:00 68 12 115/62 (79) 93 BiPAP/CPAP 10/16/18 16:00 Room Air 2.0 10/16/18 16:00 66 12 105/45 (65) 93 BiPAP/CPAP 10/16/18 15:00 98.1 68 12 110/46 (67) 93 BiPAP/CPAP 98.1 10/16/18 13:00 68 12 151/55 (87) 94 BiPAP/CPAP 10/16/18 12:00 Room Air 2.0 10/16/18 11:00 98.1 78 16 166/71 (102) 96 Room Air 98.1 10/16/18 10:09 76 154/59 10/16/18 10:00 74 154/59 (90) 92 Room Air 10/16/18 08:56 78 14 144/63 (90) 95 Room Air 10/16/18 08:00 Room Air 10/16/18 08:00 79 12 132/64 (86) 95 Room Air 10/16/18 07:00 78 16 125/54 (77) Room Air Laboratory Laboratory Laboratory Tests Test 10/16/18 18:25 10/17/18 08:35 Glucose (Fingerstick) 77 mg/dL (70-99) White Blood Count 7.2 x10^3/uL (4.0-11.0) Red Blood Count 3.31 x10^6/uL (3.50-5.40) Hemoglobin 10.5 g/dL (12.0-15.5) Hematocrit 31.8 % (36.0-47.0) Mean Corpuscular Volume 96 fL (79-100) Mean Corpuscular Hemoglobin 32 pg (25-35) Mean Corpuscular Hemoglobin Concent 33 g/dL (31-37) Red Cell Distribution Width 13.2 % (11.5-14.5) Platelet Count 268 x10^3/uL (140-400) Neutrophils (%) (Auto) 47 % (31-73) Lymphocytes (%) (Auto) 41 % (24-48) Monocytes (%) (Auto) 7 % (0-9) Eosinophils (%) (Auto) 4 % (0-3) Basophils (%) (Auto) 1 % (0-3) Neutrophils # (Auto) 3.4 x10^3uL (1.8-7.7) Lymphocytes # (Auto) 3.0 x10^3/uL (1.0-4.8) Monocytes # (Auto) 0.5 x10^3/uL (0.0-1.1) Eosinophils # (Auto) 0.3 x10^3/uL (0.0-0.7) Basophils # (Auto) 0.0 x10^3/uL (0.0-0.2) Medication Medications Current Medications Aspirin (Polo Aspirin) 325 mg DAILYWBKFT PO Last administered on 10/17/18at 12: 00; Start 10/17/18 at 12:00 Non-Formulary Medication (Armodafinil (Nuvigil)) 1 tab DAILYWBKFT PO ; Start at 08:00; Status UNV Trazodone HCl (Desyrel) 200 mg QHS PO Last administered on 10/16/18at 21:16; Start 10/16/18 at 21:00 Comment Review of Relevant I have reviewed the following items kathy (where applicable) has been applied. CARSON ZHONG MD Oct 17, 2018 14:42
== END 2018-10-17 14:54 | disposition home health service (06) | DRG 62 ==
LOC: ER 10:53 → 1 WEST ICU 12:45
PROVIDERS: ADMIT Internal Medicine; ATTEND Internal Medicine
PROC: 3E03317 Introduction of Other Thrombolytic into Peripheral Vein, Percutaneous Approach (ICD-10-PCS; principal; 2018-10-15)
PROC: 5A09357 Assistance with Respiratory Ventilation, Less than 24 Consecutive Hours, Continuous Positive Airway Pressure (ICD-10-PCS; 2018-10-15)
PROC: 5A09357 Assistance with Respiratory Ventilation, Less than 24 Consecutive Hours, Continuous Positive Airway Pressure (ICD-10-PCS; 2018-10-16)
PROC: 5A09357 Assistance with Respiratory Ventilation, Less than 24 Consecutive Hours, Continuous Positive Airway Pressure (ICD-10-PCS; 2018-10-17)
DX: I63.9 Cerebral infarction, unspecified (principal); Z68.43 Body mass index [BMI] 50.0-59.9, adult; G57.10 Meralgia paresthetica, unspecified lower limb; E11.42 Type 2 diabetes mellitus with diabetic polyneuropathy; E66.01 Morbid (severe) obesity due to excess calories; E78.00 Pure hypercholesterolemia, unspecified; E78.5 Hyperlipidemia, unspecified; F03.90 Unspecified dementia, unspecified severity, without behavioral disturbance, psychotic disturbance, mood disturbance, and anxiety; F31.9 Bipolar disorder, unspecified; F41.9 Anxiety disorder, unspecified; M19.90 Unspecified osteoarthritis, unspecified site; G47.10 Hypersomnia, unspecified; G47.33 Obstructive sleep apnea (adult) (pediatric); G43.909 Migraine, unspecified, not intractable, without status migrainosus; W18.39XA Other fall on same level, initial encounter; H40.9 Unspecified glaucoma; H53.2 Diplopia; I10 Essential (primary) hypertension; I27.20 Pulmonary hypertension, unspecified; J45.909 Unspecified asthma, uncomplicated; Z79.82 Long term (current) use of aspirin; Z82.49 Family history of ischemic heart disease and other diseases of the circulatory system; Z87.81 Personal history of (healed) traumatic fracture; Y93.89 Activity, other specified; Y92.89 Other specified places as the place of occurrence of the external cause; Y99.8 Other external cause status; Z90.49 Acquired absence of other specified parts of digestive tract; Z98.51 Tubal ligation status
CPT/HCPCS: 36415; 37195; 70450; 70496; 70498; 70551; 80048; 80053; 80061; 82962; 83036; 85025; 85027; 85610; 85730; 87641; 93005; 99291; J1815; J2270; J2405; J2997; J7030; 92610; 97530

== ENCOUNTER → 2019-03-03 | Outpatient (CLI) | payer BC ==
[2018-10-17 12:19] VITALS: BP 133/44
[~2019-03-03] MED LIST changes: +ASPI-612 PO; +ATOR40TA59 PO
--- NOTE | 2019-03-08 09:33 | SLEEP ---
DATE OF STUDY: 03/03/2019 OBJECTIVE: The patient is a 53-year-old female with obstructive sleep apnea, previously studied on 08/11/2018. The patient continued to have apnea despite CPAP setting of 12 cm. BiPAP titration was carried out to a setting of 30/25, but there was paradoxical worsening of the sleep apnea on these higher settings. This study is performed to reattempt BiPAP titration with a rate. INTERPRETATION: Sleep architecture is characterized by sleep efficiency of 92% across the 7.9 hours of recording time. Stage volumes are normal. Sleep onset latency is 12.5 minutes. Across the study, there are a total of 95 respiratory events for an apnea-hypopnea index of 13.1 events per hour of sleep. Minimum oxygen saturation is 83%. CPAP and BiPAP titrations are carried out again. At this time, on a BiPAP setting of 30/20, the apnea/hypopnea index falls to 2.8 events per hour of sleep. Periodic limb movements of sleep and cardiac arrhythmias are not observed. IMPRESSION: Successful BiPAP titration using 30/20, Respironics DreamWear full face mask, small size. RECOMMENDATIONS: 1. I will attempt to adjust these CPAP settings. 2. The patient will follow up in my office as previously scheduled. 3. Note that automated access systems technician observed a large leak right at the end of the study, so we will be careful to make sure she has a well fitted mask. Thank you for letting us help with the patient's care. LAINE SOLIZ MD DR: MAYLIN/leandro JOB#: [id number] / [id number] ELEAZAR Gorman MD
== END | disposition home or self-care (01) ==
LOC: RT 19:49
PROVIDERS: ATTEND Psychiatry & Neurology Neurology with Special Qualifications in Child Neurology
DX: G47.33 Obstructive sleep apnea (adult) (pediatric) (principal)
CPT/HCPCS: 95811

== ENCOUNTER → 2019-08-03 | Outpatient (CLI) | payer BC ==
[2018-10-17 12:19] VITALS: BP 133/44
[~2019-08-03] MED LIST changes: -GLIM4TAB2 PO; +GLIM4TAB8 PO
--- NOTE | 2019-08-03 16:19 | KCIC ---
Bilateral digital screening mammograms with 3-D tomosynthesis: Reason for examination: Routine screening. Comparison is made to previous study dated 12/01/2014. Bilateral mammograms in CC and oblique projections were obtained with 2-D imaging and 3-D tomosynthesis imaging on a Siemens Inspiration unit and reviewed on the workstation. Interpretation was made with the benefit of CAD. The skin and nipples show no abnormalities. No abnormal axillary lymph nodes are seen. The breast parenchyma shows scattered fatty and fibroglandular density. (Breast density: Category B.) There continues to be a small patch of parenchymal asymmetry laterally in the left breast which is seen on cc view and is stable. There are no new dominant masses, suspicious calcifications or architectural distortion. Impression: No evidence of malignancy. Recommend routine screening. BI-RAD Category 2: Benign. "Our facility is accredited by the [employer] Mammography Program." This patient's information has been entered into a reminder system for the patient to be notified with the results of her examination and a target date for the next mammogram. Electronically signed by: Jennifer Hensley MD (08/03/2019 4:16 PM) [id number]
== END | disposition home or self-care (01) ==
LOC: KCIC MAMMO 11:25
PROVIDERS: ATTEND Family Medicine
DX: Z12.31 Encounter for screening mammogram for malignant neoplasm of breast (principal)
CPT/HCPCS: 77063; 77067

== ENCOUNTER 2019-09-26 11:39 | Emergency (ER) | payer BC ==
[~2019-09-26] VITALS: Ht 152.4 cm; Wt 124.5 kg
[2019-09-26 11:52] VITALS: BP 159/66
--- NOTE | 2019-09-26 12:13 | PHYS DOC ---
Past Medical History Past Medical History: Asthma, Bipolar, Diabetes-Type II, Glaucoma, High C holesterol, Hypertension, Other Additional Past Medical Histor: GASTROPARESIS, SLEEP APNEA, GLAUCOMA Past Surgical History: Cholecystectomy, Tonsillectomy, Tubal ligation, Other Additional Past Surgical Histo: CRYO SURG,D&C,THERMOABLATION, CARDIAC CATH Smoking Status: Never Smoker Alcohol Use: None Drug Use: None Adult General Chief Complaint Chief Complaint: ANKLE PROBLEM HPI HPI Patient is a 53 year old F who states about 30 minutes prior to arrival she stepped in a hole and fell and twisted her R ankle. She is having pain in the R ankle and foot and states it is also starting to hurt just below the R knee. She has fractured this ankle prior and has hardware. She does not remember who her orthopedic surgeon was. She denies hitting her head or LOC and has no neck pain. She is awake and alert in the room. Review of Systems Review of Systems Constitutional: Denies fever or chills HENT: Denies nasal congestion or sore throat Respiratory: Denies cough or shortness of breath Cardiovascular: Denies chest pain GI: Denies abdominal pain, nausea, vomiting, bloody stools or diarrhea Musculoskeletal: Denies back pain. Reports R knee, ankle and foot pain Integument: Abrasions and swelling Neurologic: Denies headache, focal weakness or sensory changes All other systems were reviewed and found to be within normal limits, except as documented in this note. Allergies Allergies Allergies Coded Allergies Type Severity Reaction Last Updated Verified erythromycin base Allergy Intermediate 10/17/18 Yes insulin aspart Allergy Intermediate 09/01/18 Yes insulin aspart protamine human Allergy Intermediate 09/01/18 Yes lithium Allergy Intermediate 09/01/18 Yes Physical Exam Physical Exam Constitutional: Well developed, well nourished, no acute distress, non-toxic appearance. HENT: Normocephalic, atraumatic, bilateral external ears normal, oropharynx moist, no oral exudates, nose normal. Neck: Normal range of motion, no tenderness, supple, no stridor. Cardiovascular:Heart rate regular rhythm, no murmur Lungs & Thorax: Bilateral breath sounds clear to auscultation Abdomen: Bowel sounds normal, soft, no tenderness, no masses, no pulsatile masses. Skin: Warm, dry, no erythema, no rash. Swelling noted over lateral malleolus, s mall abrasion to R christian Back: No tenderness, no CVA tenderness. Extremities: No cyanosis, no clubbing. R lateral ankle and lateral foot pain, ROM intact but painful Neurologic: Alert and oriented X 3, normal motor function, normal sensory function, no focal deficits noted. Strong AT and DP pulses Psychologic: Affect normal, judgement normal, mood normal. Current Patient Data Vital Signs Vital Signs Date Time Temp Pulse Resp B/P (MAP) Pulse Ox O2 Delivery O2 Flow Rate FiO2 09/26/19 11:52 98.1 71 18 159/66 (97) 95 Room Air 98.1 EKG EKG [] Radiology/Procedures Radiology/Procedures Xray shows some areas of concern that are difficult to tell if they are new or part of her old injury, possible nondisplaced distal fibula fx and possible chip fracture of calcaneus. Course & Med Decision Making Course & Med Decision Making Will treat as if the injuries seen on xray are acute since it is uncertain. Discussed findings with pt and gave her copy of the xray report. Have recommended close follow up with orthopedics. Pt thinks her prior ortho was at and I have recommended she contact them since she has hardware and they would be aware of prior surgery, etc. Since she is unsure, I did also give her name and number for our absorption operator ortho, Dr. Faith. Pt to rest, ice and elevate and monitor for any signs or symptoms of compartment syndrome. Pt to return with any concerns. Dragon Disclaimer Dragon Disclaimer This electronic medical record was generated, in whole or in part, using a voice recognition dictation system. Departure Departure Impression: Primary Impression: Fibular abnormality Additional Impression: Avulsion fracture of ankle Disposition: HOME, SELF-CARE Condition: STABLE Referrals: ELEAZAR LEO MD (PCP) NEW FAITH MD Patient Instructions: Fibular Fracture, Adult, Treated Without Immobilization Additional Instructions: Splint, non-weightbearing as much as possible, close follow up with orthopedics. Elevate and Ice often to help with swelling. Return with any worsening symptoms. Scripts Hydrocodone/Apap 5-325 (NORCO 5-325 TABLET) 1 Each Tablet 1-2 TAB PO Q4-6HRS PRN for PAIN, #20 TAB Prov: JENNIFER MCCARTNEY 09/26/19 Problem Qualifiers JENNIFER MCCARTNEY Sep 26, 2019 12:13
--- NOTE | 2019-09-26 12:55 | RAD ---
Three-view right knee and three-view right ankle and three-view right foot dated 09/26/2019. No comparison available. CLINICAL INDICATION: Pain after injury. FINDINGS: 3 views of right knee show normal bony alignment. No displaced fracture. Mild tricompartmental hypertrophic change with small marginal osteophytes. No apparent joint effusion or loose body. 3 views of right ankle show normal bony alignment. No displaced fracture. There are old healed fractures of the distal tibia and fibular with plate and screw fixation. There is some subtle radiolucency along the margin of the distal screw at the fibular plate that extends medially seen on only one view. Hardware is otherwise intact. Talar dome is intact. There is mild soft tissue swelling. Old healed fracture of the posterior malleolus. 3 views of right foot show a small curvilinear density along the lateral margin of the calcaneal head/neck region with overlying soft tissue swelling. This is seen on 2 views. Osseous structures otherwise intact. IMPRESSION: 1. Small curvilinear bone fragment along the lateral margin of the distal calcaneus could represent a small avulsion fracture or chip fracture. Correlate clinically. 2. Status post ORIF distal tibia and fibular fractures. There is some subtle radiolucency along the distal most screw of the fibular plate which could represent sequela of old injury, although a new nondisplaced fracture cannot be excluded. 3. No apparent acute abnormality of the knee. Electronically signed by: De Lam MD (09/26/2019 12:52 PM) [facility] [place]
[2019-09-26] MEDS ORDERED: HYDR-3164 PO (13:07)
== END 2019-09-26 13:25 | disposition home or self-care (01) ==
LOC: ER 11:39
DX: S82.891A Other fracture of right lower leg, initial encounter for closed fracture (principal); M25.561 Pain in right knee; R29.898 Other symptoms and signs involving the musculoskeletal system; W17.2XXA Fall into hole, initial encounter; X50.9XXA Other and unspecified overexertion or strenuous movements or postures, initial encounter; Y93.89 Activity, other specified; Y92.89 Other specified places as the place of occurrence of the external cause; Y99.8 Other external cause status
CPT/HCPCS: 29515; 73562; 73610; 73630; 99284

== ENCOUNTER 2020-07-18 11:44 | Observation (INO) | payer BC ==
[~2020-07-18] VITALS: Ht 152.4 cm; Wt 134.0 kg
[~2020-07-18 11:44] MED LIST changes: -ASPI-612 PO; +ASPI-886 PO; +HYDR-3164 PO
[2020-07-18 12:42] LABS: BASO # 0.1 x10^3/uL (0.0-0.2); BASO % 1 % (0-3); EOS # 0.2 x10^3/uL (0.0-0.7); EOS % 3 % (0-3); HEMATOCRIT 35.8 % (36.0-47.0); HEMOGLOBIN 11.9 g/dL (12.0-15.5); LYMPH # 3.4 x10^3/uL (1.0-4.8); LYMPH % 38 % (24-48); MEAN CORPUSCULAR HEMOGLOBIN 31 pg (25-35); MEAN CORPUSCULAR HGB CONC 33 g/dL (31-37); MEAN CORPUSCULAR VOLUME 94 fL (79-100); MONO # 0.6 x10^3/uL (0.0-1.1); MONO % 6 % (0-9); NEUT # 4.6 x10^3/uL (1.8-7.7); NEUT % 52 % (31-73); PLATELET COUNT 257 x10^3/uL (140-400); RED BLOOD COUNT 3.82 x10^6/uL (3.50-5.40); RED CELL DISTRIBUTION WIDTH 15.2 % (11.5-14.5); WHITE BLOOD COUNT 8.9 x10^3/uL (4.0-11.0)
[2020-07-18 12:53] LABS: CALCIUM 8.7 mg/dL (8.5-10.1); CREATININE 0.9 mg/dL (0.6-1.0); GFR 65.2; POTASSIUM 4.3 mmol/L (3.5-5.1)
--- NOTE | 2020-07-18 12:53 | RAD ---
XR CHEST 1V History: Reason: cough, covid? / Spl. Instructions: / History: Comparison: September 15, 2018 Findings: Ill-defined mid and bibasilar opacities. No pleural effusion. No pneumothorax. Enlarged iliac size, u nchanged. Impression: 1. Ill-defined mid and bibasilar opacities, may represent atelectasis or infiltrates including viral pneumonia. Electronically signed by: Savage Crow DO (07/18/2020 12:51 PM) [id number]
[2020-07-18 12:59] LABS: ALBUMIN 3.5 g/dL (3.4-5.0); ALBUMIN/GLOBULIN RATIO 0.9 (1.0-1.7); C-REACTIVE PROTEIN 6.7 mg/L (0-3.3); TOTAL BILIRUBIN 0.2 mg/dL (0.2-1.0); TOTAL PROTEIN 7.3 g/dL (6.4-8.2)
[2020-07-18] MEDS ORDERED: DEXAMETHASONE SOD PHOS 4 MG/ML VIAL IVP ONE (13:30)
--- NOTE | 2020-07-18 14:06 | ED.ADGEN ---
Past Medical History Past Medical History: Asthma, Bipolar, Diabetes-Type II, Glaucoma, High Cholesterol, Hypertension, Other Additional Past Medical Histor: GASTROPARESIS, SLEEP APNEA, GLAUCOMA Past Surgical History: Cholecystectomy, Tonsillectomy, Tubal ligation, Other Additional Past Surgical Histo: CRYO SURG,D&C,THERMOABLATION, CARDIAC CATH Smoking Status: Never Smoker Alcohol Use: None Drug Use: None General Adult EDM: Chief Complaint: SHORTNESS OF BREATH HPI: HPI: Patient is a 54-year-old female with a complicated past medical history presents to the emergency room complaining of 4 weeks of shortness of breath, left-sided chest pressure, diffuse body aches, intermittent chills. She states that she initially had cough and then developed the shortness of breath. A month ago her was diagnosed with coronavirus. She did a telemedicine visit with her primary care physician who stated that she likely had novel coronavirus 19 and placed on doxycycline. She states this did not help. She continues to have severe shortness of breath. She states that she cannot get up and move around without having to stop to catch her breath. She feels worn down and her body aches. She denies any improvement in symptoms over the last 4 weeks. She denies any relief with any [id number] medications. Review of Systems: Review of Systems: Complete ROS is negative unless otherwise documented in HPI Current Medications: Current Medications Medications (Trade) Dose Ordered Sig/Karol Start Time Stop Time Status Last Admin Dose Admin Dexamethasone Sodium Phosphate (Decadron) 10 mg 1X ONCE 07/18/20 13:30 07/18/20 13:31 DC Allergies: Allergies: Allergies Coded Allergies Type Severity Reaction Last Updated Verified erythromycin base Allergy Intermediate 10/17/18 Yes insulin aspart Allergy Intermediate 09/01/18 Yes insulin aspart protamine human Allergy Intermediate 09/01/18 Yes lithium Allergy Intermediate 09/01/18 Yes Physical Exam: PE: General: Awake, alert, NAD. Ill-appearing HEENT: Atraumatic, EOMI, PERRL, airway patent, moist oral mucosa Neck: Supple, trachea midline Respiratory: CTA bilaterally, increased work of breathing, tachypnea CV: Tachycardic, no murmur, cap refill <2 GI: Soft, nondistended, nontender, no masses MSK: No obvious deformities Skin: Warm, dry, intact Neuro: A&O x3, speech NL, sensory and motor grossly intact, no focal deficits Psych: Normal affect, normal mood, not suicidal or homicidal Current Patient Data: Labs: Laboratory Tests Test 07/18/20 12:33 White Blood Count 8.9 x10^3/uL (4.0-11.0) Red Blood Count 3.82 x10^6/uL (3.50-5.40) Hemoglobin 11.9 g/dL (12.0-15.5) L Hematocrit 35.8 % (36.0-47.0) L Mean Corpuscular Volume 94 fL (79-100) Mean Corpuscular Hemoglobin 31 pg (25-35) Mean Corpuscular Hemoglobin Concent 33 g/dL (31-37) Red Cell Distribution Width 15.2 % (11.5-14.5) H Platelet Count 257 x10^3/uL (140-400) Neutrophils (%) (Auto) 52 % (31-73) Lymphocytes (%) (Auto) 38 % (24-48) Monocytes (%) (Auto) 6 % (0-9) Eosinophils (%) (Auto) 3 % (0-3) Basophils (%) (Auto) 1 % (0-3) Neutrophils # (Auto) 4.6 x10^3/uL (1.8-7.7) Lymphocytes # (Auto) 3.4 x10^3/uL (1.0-4.8) Monocytes # (Auto) 0.6 x10^3/uL (0.0-1.1) Eosinophils # (Auto) 0.2 x10^3/uL (0.0-0.7) Basophils # (Auto) 0.1 x10^3/uL (0.0-0.2) D-Dimer (Veronica) < 0.27 ug/mlFEU Sodium Level 136 mmol/L (136-145) Potassium Level 4.3 mmol/L (3.5-5.1) Chloride Level 101 mmol/L (98-107) Carbon Dioxide Level 25 mmol/L (21-32) Anion Gap 10 (6-14) Blood Urea Nitrogen 17 mg/dL (7-20) Creatinine 0.9 mg/dL (0.6-1.0) Estimated GFR (Cockcroft-Gault) 65.2 BUN/Creatinine Ratio 19 (6-20) Glucose Level 299 mg/dL (70-99) H Calcium Level 8.7 mg/dL (8.5-10.1) Total Bilirubin 0.2 mg/dL (0.2-1.0) Aspartate Amino Transferase (AST) 48 U/L (15-37) H Alanine Aminotransferase (ALT) 53 U/L (14-59) Alkaline Phosphatase 135 U/L (46-116) H Lactate Dehydrogenase 277 U/L (81-234) H Creatine Kinase 141 U/L (26-192) Troponin I Quantitative < 0.017 ng/mL (0.000-0.055) C-Reactive Protein, Quantitative 6.7 mg/L (0-3.3) H YK-Fby-T-Type Natriuretic Peptide 57 pg/mL (0-124) Total Protein 7.3 g/dL (6.4-8.2) Albumin 3.5 g/dL (3.4-5.0) Albumin/Globulin Ratio 0.9 (1.0-1.7) L Laboratory Tests 07/18/20 12:33 Laboratory Tests 07/18/20 12:33 Vital Signs: Vital Signs Date Time Temp Pulse Resp B/P (MAP) Pulse Ox O2 Delivery O2 Flow Rate FiO2 07/18/20 13:15 78 18 164/68 (100) 95 Room Air 07/18/20 12:17 97.8 97.8 EKG: EKG: [] Heart Score: Risk Factors: Risk Factors: DM, Current or recent (<one month) smoker, HTN, HLP, family history of CAD, obesity. Risk Scores: Score 0 - 3: 2.5% MACE over next 6 weeks - Discharge Home Score 4 - 6: 20.3% MACE over next 6 weeks - Admit for Clinical Observation Score 7 - 10: 72.7% MACE over next 6 weeks - Early Invasive Strategies Radiology/Procedures: Radiology/Procedures: [] Course & Med Decision Making: Course & Med Decision Making Pertinent Labs and Imaging studies reviewed. (See chart for details) Patient is 54-year-old female who presents to the emergency room with shortness of breath, chest pain, body aches. Patient has had symptoms for the last 4 weeks. It is possible that patient still has novel coronavirus 19, however this raises concern for possible post viral bacterial pneumonia. Patient will be started on steroids and given Rocephin. Patient was unable to walk without becoming very short of breath. Her heart rate increased to 130 and her respirations increased to 35. Patient will be admitted for evaluation by human factors ergonomist. Jann Disclaimer: Jann Disclaimer: This electronic medical record was generated, in whole or in part, using a voice recognition dictation system. Departure Departure Impression: Primary Impression: Suspected 2019 novel coronavirus infection Additional Impression: Pneumonia Disposition: ADMITTED INPT THIS HOSP Condition: STABLE Referrals: ELEAZAR LEO MD (PCP) Problem Qualifiers SATISH DAVENPORT MD Jul 18, 2020 14:06
[2020-07-18] MEDS ORDERED: cefTRIAXone IV Push 1 GM VIAL. IVP ONE (14:15)
[2020-07-18] MEDS ORDERED: HYDROcodone/APAP 5/325MG 1 TAB TABLET PO PRN (15:45)
[2020-07-18] MEDS ORDERED: DEXTROSE 50% 25 GM / 50ML DISP.SYRIN. IV PRN (15:45)
[2020-07-18] MEDS ORDERED: AZITHROMYCIN 500 MG in IV NORMAL SALINE 250ML 250 ML IV ONE (15:45)
[2020-07-18] MEDS ORDERED: AZITHRMYCN 500MG IVPB FOR OMNI 250 ML IV ONE (16:00)
[2020-07-18 16:04] LABS: INFLUENZA A PATIENT NEGATIVE (NEGATIVE); INFLUENZA B PATIENT NEGATIVE (NEGATIVE)
[2020-07-18 17:00] VITALS: BP 177/79
--- NOTE | 2020-07-18 17:23 | PDOC1 ---
History and Physical Date of Admission Date of Admission DATE: 07/18/20 TIME: 17:16 Identification/Chief Complaint Chief Complaint cough, dyspnea, back pain Source Source: Chart review, Patient History of Present Illness History of Present Illness Sanna Shah, is a 54-year-old female admit from ER with weakness and dyspnea and cough that has worsened this months. She also has left-sided chest pressure, diffuse body aches, intermittent chills. She states that she initially had cough and then developed the shortness of breath. A month ago her was diagnosed with coronavirus. Dr Sheriff thought she likley had COVID and gave her doxycycline. she was tested negative for covid but quarantined with her , and she says the health dept thought she had it. She described the test as "barely entering my nasal area at all" She continues to have shortness of breath, cough and pain and weakness, . She states that she cannot get up and move around without having to stop to catch her breath. She feels worn down and her body aches. She denies any improvement in symptoms over the last 4 weeks. She denies any relief with any yzfc-kbg-uoxycfo medications Past Medical History Cardiovascular: Other Pulmonary: Asthma, Other CENTRAL NERVOUS SYSTEM: Dementia, Periperal neuropathy GI: Other Heme/Onc: No pertinent hx Hepatobiliary: Other Psych: Anxiety, Depression Musculoskeletal: Osteoarthritis Rheumatologic: No pertinent hx Infectious disease: No pertinent hx Renal/: No pertinent hx Endocrine: Diabetes Past Surgical History Past Surgical History: Cholecystectomy, Tubal Ligation, Tonsillectomy, Other Family History Family History: Coronary Artery Disease, Hypertension Social History ALCOHOL: none Drugs: None Current Problem List Problem List Problems Medical Problems: (1) Pneumonia Status: Acute (2) Suspected 2019 novel coronavirus infection Status: Acute Current Medications Current Medications Current Medications Dexamethasone Sodium Phosphate (Decadron) 10 mg 1X ONCE IVP Last administered on 07/18/20at 15:27; Start 07/18/20 at 13:30; Stop 07/18/20 at 13:31; Status DC Ceftriaxone Sodium (Rocephin) 1 gm 1X ONCE IVP Last administered on 07/18/20at 15:28; Start 07/18/20 at 14:15; Stop 07/18/20 at 14:16; Status DC Azithromycin 500 mg/Sodium Chloride 250 ml @ 250 mls/hr 1X ONCE IV ; Start 07/18/20 at 15:45; Stop 07/18/20 at 16:44; Status UNV Azithromycin (Zithromax) 250 mg DAILY PO ; Start 07/19/20 at 09:00 Aspirin (Ecotrin) 81 mg DAILY PO ; Start 07/19/20 at 09:00 Atorvastatin Calcium (Lipitor) 40 mg DAILY PO ; Start 07/19/20 at 09:00 Duloxetine HCl (Cymbalta) 120 mg DAILY PO ; Start 07/19/20 at 09:00 Gabapentin (Neurontin) 300 mg BID PO ; Start 07/18/20 at 21:00 Acetaminophen/ Hydrocodone Bitart (Lortab 5/325) 1 tab Q4HRS PRN PO PAIN; Start 07/18/20 at 15:45 Losartan Potassium (Cozaar) 50 mg DAILY PO ; Start 07/19/20 at 09:00 Insulin Glargine (Lantus Syringe) 31 unit BID SQ ; Start 07/18/20 at 21:00 Hydrochlorothiazide (Microzide) 12.5 mg DAILY PO ; Start 07/19/20 at 09:00 Azithromycin 250 ml @ 250 mls/hr 1X ONCE IV ; Start 07/18/20 at 16:00; Stop 07/18/20 at 16:59; Status DC Insulin Human Lispro (HumaLOG) 0-9 UNITS TIDWMEALS SQ ; Start 07/18/20 at 17:00; Status UNV Dextrose (Dextrose 50%-Water Syringe) 12.5 gm PRN Q15MIN PRN IV SEE COMMENTS; Start 07/18/20 at 15:45 Insulin Human Lispro (HumaLOG) 12 units TIDWMEALS SQ ; Start 07/18/20 at 17:00; Status UNV Enoxaparin Sodium (Lovenox Per Pharmacy Prophylaxis Dosing) 1 each PRN DAILY PRN MC SEE COMMENTS; Start 07/18/20 at 16:15 Vitamin D (Vitamin D3) 5,000 unit DAILY PO ; Start 07/19/20 at 09:00 Ascorbic Acid (Vitamin C) 1,000 mg DAILY PO ; Start 07/19/20 at 09:00 Vitamin B Complex (Folbic Tablet) 1 tab DAILY PO ; Start 07/19/20 at 09:00 Enoxaparin Sodium (Lovenox 60mg Syringe) 60 mg Q12HR SQ ; Start 07/18/20 at 21:00 Active Scripts Active [place] 5-325 Tablet (Acetaminophen/Hydrocodone Bitart) 1 Each Tablet 1-2 Tab PO Q4-6HRS PRN Aspirin Ec (Aspirin) 81 Mg Tablet.dr 1 Tab PO DAILY 30 Days Atorvastatin Calcium 40 Mg Tablet 1 Tab PO DAILY 30 Days Reported Novolin N (Nph, Human Insulin Isophane) 100 Unit/1 Ml Vial 31 Unit SQ [id number] Gabapentin (Gabapentin) 300 Mg Capsule 300 Mg PO BID Jeannine Allergy (Fexofenadine Hcl) 180 Mg Tablet 1 Tab PO DAILY Geodon (Ziprasidone Hcl) 80 Mg Capsule 1 Cap PO BID Nuvigil (Armodafinil) 250 Mg Tablet 1 Tab PO DAILYWBKFT Glimepiride 4 Mg Tablet 1 Tab PO DAILY Losartan-Hctz 50-12.5 Mg Tab (Losartan/Hydrochlorothiazide) 1 Each Tablet 1 Tab PO DAILY Proair Hfa Inhaler (Albuterol Sulfate) 8.5 Gm Hfa.aer.ad 1 Puff INH PRN Q6HRS PRN Trileptal (Oxcarbazepine) 150 Mg Tablet 3 Tab PO BID Cymbalta (Duloxetine Hcl) 20 Mg Capsule.dr 120 Mg PO DAILY Trazodone Hcl 300 Mg Tablet 200 Mg PO QHS Allergies Allergies: Coded Allergies: insulin aspart (Verified Allergy, Intermediate, 09/01/18) insulin aspart protamine human (Verified Allergy, Intermediate, Itching, 07/18/20) lithium (Verified Allergy, Intermediate, 09/01/18) erythromycin base (Verified Adverse Reaction, Intermediate, STOMACH UPSET, 07/18/20) ROS General: No: Chills, Night Sweats, Fatigue, Malaise, Appetite, Other PSYCHOLOGICAL ROS: No: Anxiety, Behavioral Disorder, Concentration difficultie, Decreased libido, Depression, Disorientation, Hallucinations, Hostility, Irritablity, Memory difficulties, Mood Swings, Obsessive thoughts, Physical abuse, Sexual abuse, Sleep disturbances, Suicidal ideation, Other Eyes: No Blurry vision, No Decreased vision, No Double vision, No Dry eyes, No Excessive tearing, No Eye Pain, No Itchy Eyes, No Loss of vision, No Photo phobia, No Scotomata, No Uses contacts, No Uses glasses, No Other HEENT: No: Heacaches, Visual Changes, Hearing change, Nasal congestion, Nasal discharge, Oral lesions, Sinus pain, Sore Throat, Epistaxis, Sneezing, Snoring, Tinnitus, Vertigo, Vocal changes, Other Respiratory: No: Cough, Hemoptysis, Orthopnea, Pleuritic Pain, Shortness of breath, SOB with excertion, Sputum Changes, Stridor, Tachypnea, Wheezing, Other Cardiovascular: No Chest Pain, No Palpitations, No Orthopnea, No Paroxysmal Noc. Dyspnea, No Edema, No Lt Headedness, No Other Gastrointestinal: No Nausea, No Vomiting, No Abdominal Pain, No Diarrhea, No Constipation, No Melena, No Hematochezia, No Other Genitourinary: No Dysuria, No Frequency, No Incontinence, No Hematuria, No Retention, No Discharge, No Urgency, No Pain, No Flank Pain, No Other, No , No , No , No , No , No , No Musculoskeletal: No Gait Disturbance, No Joint Pain, No Joint Stiffness, No Joint Swelling, No Muscle Pain, No Muscular Weakness, No Pain In:, No Swelling In:, No Other Neurological: No Behavorial Changes, No Bowel/Bladder ControlChng, No Confusion, No Dizziness, No Gait Disturbance, No Headaches, No Impaired Coord/balance, No Memory Loss, No Numbness/Tingling, No Seizures, No Speech Problems, No Tremors, No Visual Changes, No Weakness, No Other Skin: No Dry Skin, No Eczema, No Hair Changes, No Lumps, No Mole Changes, No Mottling, No Nail Changes, No Pruritus, No Rash, No Skin Lesion Changes, No Other, No Acne Physical Exam General: Alert, Cooperative, No acute distress HEENT: Atraumatic, PERRLA Lungs: Clear to auscultation Heart: RRR Abdomen: Soft (very obese, ) Rectal Exam: not examined Extremities: No clubbing, No cyanosis, No edema, Normal pulses Skin: No rashes, No significant lesion Neuro: Normal speech, Normal tone, Sensation intact Psych/Mental Status: Mental status NL, Mood NL Vitals Vitals Vital Signs Date Time Temp Pulse Resp B/P (MAP) Pulse Ox O2 Delivery O2 Flow Rate FiO2 07/18/20 15:23 76 18 151/64 (93) 96 Room Air 07/18/20 12:17 97.8 97.8 Labs Labs Laboratory Tests Test 07/18/20 12:33 07/18/20 15:36 White Blood Count 8.9 x10^3/uL (4.0-11.0) Red Blood Count 3.82 x10^6/uL (3.50-5.40) Hemoglobin 11.9 g/dL (12.0-15.5) Hematocrit 35.8 % (36.0-47.0) Mean Corpuscular Volume 94 fL (79-100) Mean Corpuscular Hemoglobin 31 pg (25-35) Mean Corpuscular Hemoglobin Concent 33 g/dL (31-37) Red Cell Distribution Width 15.2 % (11.5-14.5) Platelet Count 257 x10^3/uL (140-400) Neutrophils (%) (Auto) 52 % (31-73) Lymphocytes (%) (Auto) 38 % (24-48) Monocytes (%) (Auto) 6 % (0-9) Eosinophils (%) (Auto) 3 % (0-3) Basophils (%) (Auto) 1 % (0-3) Neutrophils # (Auto) 4.6 x10^3/uL (1.8-7.7) Lymphocytes # (Auto) 3.4 x10^3/uL (1.0-4.8) Monocytes # (Auto) 0.6 x10^3/uL (0.0-1.1) Eosinophils # (Auto) 0.2 x10^3/uL (0.0-0.7) Basophils # (Auto) 0.1 x10^3/uL (0.0-0.2) D-Dimer (Veronica) < 0.27 ug/mlFEU Sodium Level 136 mmol/L (136-145) Potassium Level 4.3 mmol/L (3.5-5.1) Chloride Level 101 mmol/L (98-107) Carbon Dioxide Level 25 mmol/L (21-32) Anion Gap 10 (6-14) Blood Urea Nitrogen 17 mg/dL (7-20) Creatinine 0.9 mg/dL (0.6-1.0) Estimated GFR (Cockcroft-Gault) 65.2 BUN/Creatinine Ratio 19 (6-20) Glucose Level 299 mg/dL (70-99) Calcium Level 8.7 mg/dL (8.5-10.1) Total Bilirubin 0.2 mg/dL (0.2-1.0) Aspartate Amino Transf (AST/SGOT) 48 U/L (15-37) Alanine Aminotransferase (ALT/SGPT) 53 U/L (14-59) Alkaline Phosphatase 135 U/L (46-116) Lactate Dehydrogenase 277 U/L (81-234) Creatine Kinase 141 U/L (26-192) Troponin I Quantitative < 0.017 ng/mL (0.000-0.055) C-Reactive Protein, Quantitative 6.7 mg/L (0-3.3) PR-Ehv-S-Type Natriuretic Peptide 57 pg/mL (0-124) Total Protein 7.3 g/dL (6.4-8.2) Albumin 3.5 g/dL (3.4-5.0) Albumin/Globulin Ratio 0.9 (1.0-1.7) Influenza Type A Antigen Negative (NEGATIVE) Influenza Type B Antigen Negative (NEGATIVE) Laboratory Tests Test 07/18/20 12:33 07/18/20 15:36 White Blood Count 8.9 x10^3/uL (4.0-11.0) Red Blood Count 3.82 x10^6/uL (3.50-5.40) Hemoglobin 11.9 g/dL (12.0-15.5) Hematocrit 35.8 % (36.0-47.0) Mean Corpuscular Volume 94 fL (79-100) Mean Corpuscular Hemoglobin 31 pg (25-35) Mean Corpuscular Hemoglobin Concent 33 g/dL (31-37) Red Cell Distribution Width 15.2 % (11.5-14.5) Platelet Count 257 x10^3/uL (140-400) Neutrophils (%) (Auto) 52 % (31-73) Lymphocytes (%) (Auto) 38 % (24-48) Monocytes (%) (Auto) 6 % (0-9) Eosinophils (%) (Auto) 3 % (0-3) Basophils (%) (Auto) 1 % (0-3) Neutrophils # (Auto) 4.6 x10^3/uL (1.8-7.7) Lymphocytes # (Auto) 3.4 x10^3/uL (1.0-4.8) Monocytes # (Auto) 0.6 x10^3/uL (0.0-1.1) Eosinophils # (Auto) 0.2 x10^3/uL (0.0-0.7) Basophils # (Auto) 0.1 x10^3/uL (0.0-0.2) D-Dimer (Veronica) < 0.27 ug/mlFEU Sodium Level 136 mmol/L (136-145) Potassium Level 4.3 mmol/L (3.5-5.1) Chloride Level 101 mmol/L (98-107) Carbon Dioxide Level 25 mmol/L (21-32) Anion Gap 10 (6-14) Blood Urea Nitrogen 17 mg/dL (7-20) Creatinine 0.9 mg/dL (0.6-1.0) Estimated GFR (Cockcroft-Gault) 65.2 BUN/Creatinine Ratio 19 (6-20) Glucose Level 299 mg/dL (70-99) Calcium Level 8.7 mg/dL (8.5-10.1) Total Bilirubin 0.2 mg/dL (0.2-1.0) Aspartate Amino Transf (AST/SGOT) 48 U/L (15-37) Alanine Aminotransferase (ALT/SGPT) 53 U/L (14-59) Alkaline Phosphatase 135 U/L (46-116) Lactate Dehydrogenase 277 U/L (81-234) Creatine Kinase 141 U/L (26-192) Troponin I Quantitative < 0.017 ng/mL (0.000-0.055) C-Reactive Protein, Quantitative 6.7 mg/L (0-3.3) XI-Irx-Z-Type Natriuretic Peptide 57 pg/mL (0-124) Total Protein 7.3 g/dL (6.4-8.2) Albumin 3.5 g/dL (3.4-5.0) Albumin/Globulin Ratio 0.9 (1.0-1.7) Influenza Type A Antigen Negative (NEGATIVE) Influenza Type B Antigen Negative (NEGATIVE) VTE Prophylaxis Ordered VTE Prophylaxis Devices: Contraindicated VTE Pharmacological Prophylaxi: Yes Assessment/Plan Assessment/Plan COVID -19 infection, still lingering symptoms, cough, dyspnea, IV steriods and abx started in The ER, will continue morbid obesity, BMI 55 back pain, weakness, generalized malaise, long COVID symptoms, Dm2, poor control, add BID lantus, add meal time insulin Bipolar disorder with major depression and current anxiety with 3 kids at home, out of school due to covid, she admits she is exhausted with that and cannot deal with her physical ailments currently Justifications for Admission Other Justification YELENA LENTZ MD Jul 18, 2020 17:22
[2020-07-18] MEDS: INSULIN LISPRO 300 UNITS/3 ML VIAL. SQ SCH ×2 (18:00)
[2020-07-18 19:00] VITALS: BP 176/72
[2020-07-18] MEDS: INSULIN GLARGINE SYRINGE. SQ SCH (20:36)
[2020-07-18] MEDS: GABAPENTIN 300 MG CAPSULE. PO SCH (20:37)
[2020-07-18 23:00] VITALS: BP 184/75
[2020-07-18] MEDS ORDERED: IBUPROFEN 400 MG TABLET. PO PRN (23:00)
[2020-07-19 03:00] VITALS: BP 163/70
[2020-07-19 07:00] VITALS: BP 171/72
--- NOTE | 2020-07-19 07:39 | EKG ---
[facility] [address] [place] [address] Test Date: 2020-07-18 Test Time: 12:26:24 Pat Name: ANDREAS LIAO Department: Room: Gender: F Graphics Editor: : 1965 Requested By: SATISH DAVENPORT Order Number: [id number] Reading MD: Measurements Intervals [place] Rate: 84 P: 34 CO: 138 QRS: 17 QRSD: 80 T: 31 QT: 356 QTc: 424 Interpretive Statements SINUS RHYTHM NORMAL ECG RI6.01 No previous ECG available for comparison
[2020-07-19] MEDS: GABAPENTIN 300 MG CAPSULE. PO SCH (08:25)
[2020-07-19] MEDS: INSULIN LISPRO 300 UNITS/3 ML VIAL. SQ SCH ×4 (08:27→12:38)
[2020-07-19] MEDS ORDERED: CHOLECALCIFEROL (VITAMIN D3) 5,000 UNIT CAPSULE PO SCH (09:00)
[2020-07-19] MEDS ORDERED: ATORVASTATIN CALCIUM 40 MG TABLET. PO SCH (09:00)
[2020-07-19] MEDS ORDERED: ASPIRIN ENTERIC COATED 81 MG TABLET.DR. PO SCH (09:00)
[2020-07-19] MEDS ORDERED: ASCORBIC ACID 1,000 MG TABLET PO SCH (09:00)
[2020-07-19] MEDS ORDERED: LOSARTAN POTASSIUM 50 MG TABLET. PO SCH (09:00)
[2020-07-19] MEDS ORDERED: VITAMIN B12,B9,B6 COMPLEX 1 TABLET. PO SCH (09:00)
[2020-07-19] MEDS ORDERED: DULoxetine HCL 20 MG CAPSULE.DR PO SCH (09:00)
[2020-07-19] MEDS ORDERED: AZITHROMYCIN 250 MG TABLET. PO SCH (09:00)
[2020-07-19] MEDS ORDERED: hydroCHLOROthiazide 12.5 MG CAPSULE PO SCH (09:00)
[2020-07-19] MEDS: INSULIN GLARGINE SYRINGE. SQ SCH (09:55)
[2020-07-19 11:00] VITALS: BP 160/68
--- NOTE | 2020-07-19 11:47 | PDOC ---
[employer] PROGRESS NOTE Date of Service DOS: DATE: 07/19/20 TIME: 11:45 Chief Complaint Chief Complaint Assessment/Plan COVID -19 infection, still lingering symptoms, cough, dyspnea, IV steriods and abx started in The ER, will continue morbid obesity, BMI 55 back pain, weakness, generalized malaise, long COVID symptoms, Dm2, poor control, add BID lantus, add meal time insulin Bipolar disorder with major depression and current anxiety with 3 kids at home, out of school due to covid, she admits she is exhausted with that and cannot deal with her physical ailments currently History of Present Illness History of Present Illness Patient is a 54-year-old female admit from ER with weakness and dyspnea and cough that has worsened this months. She also has left-sided chest pressure, diffuse body aches, intermittent chills. She states that she initially had cough and then developed the shortness of breath. A month ago her was diagnosed with coronavirus. Dr Sheriff thought she likley had COVID and gave her doxycycline. she was tested negative for covid but quarantined with her , and she says the health dept thought she had it. She described the test as "barely entering my nasal area at all" She continues to have shortness of breath, cough and pain and weakness, . She states that she cannot get up and move around without having to stop to catch her breath. She feels worn down and her body aches. She denies any improvement in symptoms over the last 4 weeks. She denies any relief with any axgh-gdg-scissdo medications 07/19: Patient seen and evaluated bedside. She is breathing comfortably on room air. She states that she finished a course of doxycycline prior to the new year prescribed her PCP. COVID-19 pending. Discussed with patient that I think she can discharge home with a short course of prednisone and Levaquin. Patient states she feels comfortable with this and will follow up with her PCP either in person or by video conference soon as possible. Greater than 30 minutes was spent managing discharge this patient. Vitals/I&O Vitals/I&O: Vital Signs Date Time Temp Pulse Resp B/P (MAP) Pulse Ox O2 Delivery O2 Flow Rate FiO2 07/19/20 11:00 98.0 100 18 160/68 (98) 94 Room Air 98.0 I & O 07/18/20 07/18/20 07/19/20 15:00 23:00 07:00 Intake Total 300 ml Balance 300 ml Physical Exam General: Alert, Cooperative, No acute distress Heart: Regular rate Lungs: Crackles Abdomen: Soft Extremities: No clubbing, No cyanosis, No edema, Normal pulses Skin: No rashes, No significant lesion Labs Labs: Laboratory Tests Test 07/18/20 12:33 07/18/20 15:36 07/18/20 16:57 07/18/20 19:49 White Blood Count 8.9 x10^3/uL (4.0-11.0) Red Blood Count 3.82 x10^6/uL (3.50-5.40) Hemoglobin 11.9 g/dL (12.0-15.5) Hematocrit 35.8 % (36.0-47.0) Mean Corpuscular Volume 94 fL (79-100) Mean Corpuscular Hemoglobin 31 pg (25-35) Mean Corpuscular Hemoglobin Concent 33 g/dL (31-37) Red Cell Distribution Width 15.2 % (11.5-14.5) Platelet Count 257 x10^3/uL (140-400) Neutrophils (%) (Auto) 52 % (31-73) Lymphocytes (%) (Auto) 38 % (24-48) Monocytes (%) (Auto) 6 % (0-9) Eosinophils (%) (Auto) 3 % (0-3) Basophils (%) (Auto) 1 % (0-3) Neutrophils # (Auto) 4.6 x10^3/uL (1.8-7.7) Lymphocytes # (Auto) 3.4 x10^3/uL (1.0-4.8) Monocytes # (Auto) 0.6 x10^3/uL (0.0-1.1) Eosinophils # (Auto) 0.2 x10^3/uL (0.0-0.7) Basophils # (Auto) 0.1 x10^3/uL (0.0-0.2) D-Dimer (Veronica) < 0.27 ug/mlFEU Sodium Level 136 mmol/L (136-145) Potassium Level 4.3 mmol/L (3.5-5.1) Chloride Level 101 mmol/L (98-107) Carbon Dioxide Level 25 mmol/L (21-32) Anion Gap 10 (6-14) Blood Urea Nitrogen 17 mg/dL (7-20) Creatinine 0.9 mg/dL (0.6-1.0) Estimated GFR (Cockcroft-Gault) 65.2 BUN/Creatinine Ratio 19 (6-20) Glucose Level 299 mg/dL (70-99) Calcium Level 8.7 mg/dL (8.5-10.1) Total Bilirubin 0.2 mg/dL (0.2-1.0) Aspartate Amino Transf (AST/SGOT) 48 U/L (15-37) Alanine Aminotransferase (ALT/SGPT) 53 U/L (14-59) Alkaline Phosphatase 135 U/L (46-116) Lactate Dehydrogenase 277 U/L (81-234) Creatine Kinase 141 U/L (26-192) Troponin I Quantitative < 0.017 ng/mL (0.000-0.055) C-Reactive Protein, Quantitative 6.7 mg/L (0-3.3) BT-Kbx-C-Type Natriuretic Peptide 57 pg/mL (0-124) Total Protein 7.3 g/dL (6.4-8.2) Albumin 3.5 g/dL (3.4-5.0) Albumin/Globulin Ratio 0.9 (1.0-1.7) Influenza Type A Antigen Negative (NEGATIVE) Influenza Type B Antigen Negative (NEGATIVE) Glucose (Fingerstick) 228 mg/dL (70-99) 250 mg/dL (70-99) Test 07/19/20 07:42 Glucose (Fingerstick) 223 mg/dL (70-99) Assessment and Plan Assessmemt and Plan Problems Medical Problems: (1) Pneumonia Status: Acute (2) Suspected 2019 novel coronavirus infection Status: Acute Comment Review of Relevant I have reviewed the following items kathy (where applicable) has been applied. Medications: Current Medications Medications (Trade) Dose Ordered Sig/Karol Route PRN Reason Start Time Stop Time Status Last Admin Dose Admin Dexamethasone Sodium Phosphate (Decadron) 10 mg 1X ONCE IVP 07/18/20 13:30 07/18/20 13:31 DC 07/18/20 15:27 Ceftriaxone Sodium (Rocephin) 1 gm 1X ONCE IVP 07/18/20 14:15 07/18/20 14:16 DC 07/18/20 15:28 Azithromycin (Zithromax) 250 mg DAILY PO 07/19/20 09:00 07/19/20 08:25 Aspirin (Ecotrin) 81 mg DAILY PO 07/19/20 09:00 07/19/20 08:25 Atorvastatin Calcium (Lipitor) 40 mg DAILY PO 07/19/20 09:00 07/19/20 08:26 Duloxetine HCl (Cymbalta) 120 mg DAILY PO 07/19/20 09:00 07/19/20 08:25 Gabapentin (Neurontin) 300 mg BID PO 07/18/20 21:00 07/19/20 08:25 Acetaminophen/ Hydrocodone Bitart (Lortab 5/325) 1 tab Q4HRS PRN PO PAIN 07/18/20 15:45 07/18/20 21:04 Losartan Potassium (Cozaar) 50 mg DAILY PO 07/19/20 09:00 07/19/20 08:26 Insulin Glargine (Lantus Syringe) 31 unit BID SQ 07/18/20 21:00 07/19/20 09:55 Hydrochlorothiazide (Microzide) 12.5 mg DAILY PO 07/19/20 09:00 07/19/20 08:25 Azithromycin 250 ml @ 250 mls/hr 1X ONCE IV 07/18/20 16:00 07/18/20 16:59 DC 07/18/20 22:24 Insulin Human Lispro (HumaLOG) 0-9 UNITS TIDWMEALS SQ 07/18/20 18:00 07/19/20 08:27 Insulin Human Lispro (HumaLOG) 12 units TIDWMEALS SQ 07/18/20 18:00 07/19/20 08:28 Vitamin D (Vitamin D3) 5,000 unit DAILY PO 07/19/20 09:00 07/19/20 08:25 Ascorbic Acid (Vitamin C) 1,000 mg DAILY PO 07/19/20 09:00 07/19/20 08:25 Vitamin B Complex (Folbic Tablet) 1 tab DAILY PO 07/19/20 09:00 07/19/20 08:25 Enoxaparin Sodium (Lovenox 60mg Syringe) 60 mg Q12HR SQ 07/18/20 21:00 07/19/20 08:26 Ibuprofen (Motrin) 400 mg PRN Q6HRS PRN PO INFLAMMATION 07/18/20 23:00 07/18/20 22:55 Justifications for Admission Other Justification AMARJIT STREETER MD Jul 19, 2020 11:47
--- NOTE | 2020-07-19 11:59 | CONS ---
DATE OF CONSULTATION: PULMONARY CONSULTATION ATTENDING PHYSICIAN: Dr. Jaeger. REASON FOR CONSULTATION: Dyspnea and suspected COVID infection. HISTORY OF PRESENT ILLNESS: The patient is a 54-year-old with morbid obesity with a BMI of 57. She presented to the hospital complaining of some mild shortness of breath. She also had a mild cough. Last month her was diagnosed with COVID-19 infection. The patient was treated as an outpatient with doxycycline. She was initially tested negative for COVID, but she did quarantine with her . The patient was evaluated in the Emergency Room. Chest x-ray revealed faint prominent interstitial markings on the right side and questionable on the left base. She is currently resting on room air. She does use her BiPAP on a chronic basis. Room air saturations were 94%. She does not have a fever. PAST MEDICAL HISTORY: History of morbid obesity, history of obstructive sleep apnea, on home BiPAP, history of peripheral neuropathy, osteoarthritis. PAST SURGICAL HISTORY: Cholecystectomy, tubal ligation, tonsillectomy. FAMILY HISTORY: Coronary artery disease and hypertension. SOCIAL HISTORY: Nonsmoker ALLERGIES: All reviewed as listed in the MRAD. MEDICATIONS: Also reviewed as listed in the MRAD including Lovenox. She did receive dexamethasone in the ER. PHYSICAL EXAMINATION: VITAL SIGNS: Reviewed. On room air 94% saturation, afebrile, blood pressure on the high side. Visual exam done due to COVID suspicion. No obvious respiratory distress. She is morbidly obese. No skin rash. LABORATORY DATA: Her influenza screen is negative. Her BUN 17, creatinine 0.9. D-dimer less than 0.27. White cell count 8.9. IMPRESSION: 1. Dyspnea with mild cough, likely due to suspected COVID-19 infection. Her was diagnosed and treated last month with COVID-19 infection. 2. Underlying morbid obesity with obstructive sleep apnea, on home BiPAP with good compliance. 3. No significant tobacco use. 4. Abnormal chest x-ray. RECOMMENDATIONS: 1. The patient is currently doing reasonably well on room air. She will remain on her BiPAP at nighttime. 2. If COVID test is negative, then she could be discharged home on oral steroids. 3. We will withhold any antibiotics at present. 4. Discussed with RN. IRENA OLIVEIRA MD DR: ROBERTA/leandro JOB#: [id number] / [id number]
[2020-07-19] MEDS ORDERED: LEVO750T5 PO (12:08)
[2020-07-19] MEDS ORDERED: PRED20TA PO (12:10)
--- NOTE | 2020-07-19 12:15 | PDOC3 ---
Discharge Summary Visit Information Date of Admission: Jul 18, 2020 Date of Discharge: Jul 19, 2020 Final Diagnosis Problems Medical Problems: (1) Pneumonia Status: Acute (2) Suspected 2019 novel coronavirus infection Status: Acute Brief Hospital Course Allergies Allergies Coded Allergies Type Severity Reaction Last Updated Verified insulin aspart Allergy Intermediate 09/01/18 Yes insulin aspart protamine human Allergy Intermediate Itching 07/18/20 Yes lithium Allergy Intermediate 09/01/18 Yes erythromycin base Adverse Reaction Intermediate STOMACH UPSET 07/18/20 Yes Vital Signs Vital Signs Date Time Temp Pulse Resp B/P (MAP) Pulse Ox O2 Delivery O2 Flow Rate FiO2 07/19/20 11:00 98.0 100 18 160/68 (98) 94 Room Air 98.0 Lab Results Laboratory Tests Test 07/18/20 12:33 07/18/20 15:36 07/18/20 16:57 07/18/20 19:49 White Blood Count 8.9 x10^3/uL (4.0-11.0) Red Blood Count 3.82 x10^6/uL (3.50-5.40) Hemoglobin 11.9 g/dL (12.0-15.5) Hematocrit 35.8 % (36.0-47.0) Mean Corpuscular Volume 94 fL (79-100) Mean Corpuscular Hemoglobin 31 pg (25-35) Mean Corpuscular Hemoglobin Concent 33 g/dL (31-37) Red Cell Distribution Width 15.2 % (11.5-14.5) Platelet Count 257 x10^3/uL (140-400) Neutrophils (%) (Auto) 52 % (31-73) Lymphocytes (%) (Auto) 38 % (24-48) Monocytes (%) (Auto) 6 % (0-9) Eosinophils (%) (Auto) 3 % (0-3) Basophils (%) (Auto) 1 % (0-3) Neutrophils # (Auto) 4.6 x10^3/uL (1.8-7.7) Lymphocytes # (Auto) 3.4 x10^3/uL (1.0-4.8) Monocytes # (Auto) 0.6 x10^3/uL (0.0-1.1) Eosinophils # (Auto) 0.2 x10^3/uL (0.0-0.7) Basophils # (Auto) 0.1 x10^3/uL (0.0-0.2) D-Dimer (Veronica) < 0.27 ug/mlFEU Sodium Level 136 mmol/L (136-145) Potassium Level 4.3 mmol/L (3.5-5.1) Chloride Level 101 mmol/L (98-107) Carbon Dioxide Level 25 mmol/L (21-32) Anion Gap 10 (6-14) Blood Urea Nitrogen 17 mg/dL (7-20) Creatinine 0.9 mg/dL (0.6-1.0) Estimated GFR (Cockcroft-Gault) 65.2 BUN/Creatinine Ratio 19 (6-20) Glucose Level 299 mg/dL (70-99) Calcium Level 8.7 mg/dL (8.5-10.1) Total Bilirubin 0.2 mg/dL (0.2-1.0) Aspartate Amino Transf (AST/SGOT) 48 U/L (15-37) Alanine Aminotransferase (ALT/SGPT) 53 U/L (14-59) Alkaline Phosphatase 135 U/L (46-116) Lactate Dehydrogenase 277 U/L (81-234) Creatine Kinase 141 U/L (26-192) Troponin I Quantitative < 0.017 ng/mL (0.000-0.055) C-Reactive Protein, Quantitative 6.7 mg/L (0-3.3) LO-Bvr-F-Type Natriuretic Peptide 57 pg/mL (0-124) Total Protein 7.3 g/dL (6.4-8.2) Albumin 3.5 g/dL (3.4-5.0) Albumin/Globulin Ratio 0.9 (1.0-1.7) Influenza Type A Antigen Negative (NEGATIVE) Influenza Type B Antigen Negative (NEGATIVE) Glucose (Fingerstick) 228 mg/dL (70-99) 250 mg/dL (70-99) Test 07/19/20 07:42 Glucose (Fingerstick) 223 mg/dL (70-99) Laboratory Tests Test 07/18/20 12:33 07/18/20 15:36 07/18/20 16:57 07/18/20 19:49 White Blood Count 8.9 x10^3/uL (4.0-11.0) Red Blood Count 3.82 x10^6/uL (3.50-5.40) Hemoglobin 11.9 g/dL (12.0-15.5) Hematocrit 35.8 % (36.0-47.0) Mean Corpuscular Volume 94 fL (79-100) Mean Corpuscular Hemoglobin 31 pg (25-35) Mean Corpuscular Hemoglobin Concent 33 g/dL (31-37) Red Cell Distribution Width 15.2 % (11.5-14.5) Platelet Count 257 x10^3/uL (140-400) Neutrophils (%) (Auto) 52 % (31-73) Lymphocytes (%) (Auto) 38 % (24-48) Monocytes (%) (Auto) 6 % (0-9) Eosinophils (%) (Auto) 3 % (0-3) Basophils (%) (Auto) 1 % (0-3) Neutrophils # (Auto) 4.6 x10^3/uL (1.8-7.7) Lymphocytes # (Auto) 3.4 x10^3/uL (1.0-4.8) Monocytes # (Auto) 0.6 x10^3/uL (0.0-1.1) Eosinophils # (Auto) 0.2 x10^3/uL (0.0-0.7) Basophils # (Auto) 0.1 x10^3/uL (0.0-0.2) D-Dimer (Veronica) < 0.27 ug/mlFEU Sodium Level 136 mmol/L (136-145) Potassium Level 4.3 mmol/L (3.5-5.1) Chloride Level 101 mmol/L (98-107) Carbon Dioxide Level 25 mmol/L (21-32) Anion Gap 10 (6-14) Blood Urea Nitrogen 17 mg/dL (7-20) Creatinine 0.9 mg/dL (0.6-1.0) Estimated GFR (Cockcroft-Gault) 65.2 BUN/Creatinine Ratio 19 (6-20) Glucose Level 299 mg/dL (70-99) Calcium Level 8.7 mg/dL (8.5-10.1) Total Bilirubin 0.2 mg/dL (0.2-1.0) Aspartate Amino Transf (AST/SGOT) 48 U/L (15-37) Alanine Aminotransferase (ALT/SGPT) 53 U/L (14-59) Alkaline Phosphatase 135 U/L (46-116) Lactate Dehydrogenase 277 U/L (81-234) Creatine Kinase 141 U/L (26-192) Troponin I Quantitative < 0.017 ng/mL (0.000-0.055) C-Reactive Protein, Quantitative 6.7 mg/L (0-3.3) KF-Zar-F-Type Natriuretic Peptide 57 pg/mL (0-124) Total Protein 7.3 g/dL (6.4-8.2) Albumin 3.5 g/dL (3.4-5.0) Albumin/Globulin Ratio 0.9 (1.0-1.7) Influenza Type A Antigen Negative (NEGATIVE) Influenza Type B Antigen Negative (NEGATIVE) Glucose (Fingerstick) 228 mg/dL (70-99) 250 mg/dL (70-99) Test 07/19/20 07:42 Glucose (Fingerstick) 223 mg/dL (70-99) Brief Hospital Course Ms. Shah is a 54 old female who presented with COVID -19 infection, but still lingering symptoms. She was treated outpatient with doxycycline by her PCP roughly 20 days ago. Still with plaints of cough and dyspnea. Chest x-ray obtained in ER showed bilateral opacities, possible viral infection. She is saturating 94% on room air. Will discharge patient with short course of prednisone for 5 days and Levaquin for 5 days. Instructed patient to follow-up with PCP within 1 week. She was stable for discharge home. Discharge Information Condition at Discharge: Stable Follow Up: Weeks Disposition/Orders: D/C to Home Scheduled Armodafinil (Nuvigil) 250 Mg Tablet, 1 TAB PO DAILYWBKFT for to help me stay awake, #30 (Reported) Entered as Reported by: IVON PEACE on 09/02/18 0821 Aspirin (Aspirin Ec) 81 Mg Tablet., 1 TAB PO DAILY for 30 for 30 Days, #30 Ref 3 Prescribed by: MARIANNE GRANADOS MD on 10/17/18 1044 Last Action: Continued on 07/18/20 1540 by YELENA LENTZ Atorvastatin Calcium (Atorvastatin Calcium) 40 Mg Tablet, 1 TAB PO DAILY for CVA for 30 Days, #30 Ref 5 Prescribed by: MARIANNE GRANADOS MD on 10/17/18 1039 Last Action: Continued on 07/18/20 154 by YELENA LENTZ Duloxetine Hcl (Cymbalta) 20 Mg Capsule.dr, 120 MG PO DAILY for bipolar diso rder, #30 Ref 2 (Reported) Entered as Reported by: ELIANA LOPEZ on 12/13/16 0748 Last Action: Continued on 07/18/201539 by YELENA LENTZ Fexofenadine Hcl (Jeannine Allergy) 180 Mg Tablet, 1 TAB PO DAILY for allergies, #30 Ref 2 (Reported) Entered as Reported by: IVON PEACE on 09/02/18820 Last Action: HELD on 07/18/201539 by YELENA LENTZ Gabapentin (Gabapentin ) 300 Mg Capsule, 300 MG PO BID for NEUROGENIC PAIN, (Reported) Entered as Reported by: IVON PEACE on 09/02/18820 Last Action: Continued on 07/18/201539 by YELENA LENTZ Glimepiride (Glimepiride) 4 Mg Tablet, 1 TAB PO DAILY for blood sugar, #30 Ref 5 (Reported) Entered as Reported by: MATTIE BRYAN on 09/02/18612 Last Action: HELD on 07/18/201539 by YELENA LENTZ Levofloxacin (Levofloxacin) 750 Mg Tablet, 1 TAB PO DAILY for CAP, #5 Prescribed by: AMARJIT STREETER MD on 07/19/20 1208 Losartan/Hydrochlorothiazide (Losartan-Hctz 50-12.5 Mg Tab) 1 Each Tablet, 1 TAB PO DAILY for blood pressure, #30 Ref 5 (Reported) Entered as Reported by: MATTIE BRYAN on 09/02/18612 Last Action: Converted on 07/18/201539 by YELENA LENTZ Nph, Human Insulin Isophane (Novolin N) 100 Unit/1 Ml Vial, 31 UNIT SQ BID76 for diabetes, (Reported) Entered as Reported by: IVON PEACE on 09/02/18820 Last Action: Converted on 07/18/201539 by YELENA LENTZ Oxcarbazepine (Trileptal) 150 Mg Tablet, 3 TAB PO BID for seizures, #60 Ref 2 (Reported) Entered as Reported by: ELIANA LOPEZ on 12/13/16 0749 Last Action: HELD on 07/18/20 154 by YELENA LENTZ Prednisone (Prednisone) 20 Mg Tablet, 2 TAB PO DAILY for PNA for 5 Days, #10 Prescribed by: AMARJIT STREETER MD on 07/19/20 1210 Trazodone Hcl (Trazodone Hcl) 300 Mg Tablet, 200 MG PO QHS for sleep, #30 Ref 1 (Reported) Entered as Reported by: ELIANA LOPEZ on 12/13/16 0748 Last Action: HELD on 07/18/20 1540 by YELENA LENTZ Ziprasidone Hcl (Geodon) 80 Mg Capsule, 1 CAP PO BID for antipsychotic, #60 Ref 1 (Reported) Entered as Reported by: IVON PEACE on 09/02/18 0821 Last Action: HELD on 07/18/20 1540 by YELENA LENTZ Scheduled PRN Albuterol Sulfate (Proair Hfa Inhaler) 8.5 Gm Hfa.aer.ad, 1 PUFF INH PRN Q6HRS PRN for SHORTNESS OF BREATH, Ref 0 (Reported) Entered as Reported by: ELIANA LOPEZ on 12/13/16 0749 Hydrocodone/Apap 5-325 (Bancroft 5-325 Tablet) 1 Each Tablet, 1-2 TAB PO Q4-6HRS PRN for PAIN, #20 Prescribed by: BRENT CLINTON on 09/26/19 1307 Last Action: Continued on 07/18/20 154 by YELENA LENTZ Justicifation of Admission Dx: Justifications for Admission: Justification of Admission Dx: Yes (COVID-19 pneumonia, acute respiratory failure) AMARJIT STREETER MD Jul 19, 2020 12:14
--- NOTE | 2020-07-19 14:20 | NUR ---
Discharge instructions given to pt regarding following up with her PCP. Pt educated on medications, SOA, and dizziness. Pt verbalizes understanding.
--- NOTE | 2020-07-19 15:34 | NUR ---
SW following for discharge planning. Spoke with RN and reviewed chart. Pt on room air, COVID negative. Pt discharged home today, self-care. No further needs from this SW.
[2020-07-19] MEDS ORDERED: LACTOBACILLUS RHAMNOSUS GG 1 CAPSULE. PO SCH (21:00)
== END 2020-07-19 14:30 | disposition home or self-care (01) ==
LOC: ER 11:44 → 6 SOUTH 14:24 → INTOOBSV 14:24
PROVIDERS: ADMIT Internal Medicine; ATTEND Internal Medicine
DX: J18.9 Pneumonia, unspecified organism (principal); Z20.828 Contact with and (suspected) exposure to other viral communicable diseases; I10 Essential (primary) hypertension; J45.909 Unspecified asthma, uncomplicated; K31.84 Gastroparesis; E11.9 Type 2 diabetes mellitus without complications; G47.33 Obstructive sleep apnea (adult) (pediatric); E78.00 Pure hypercholesterolemia, unspecified; F03.90 Unspecified dementia, unspecified severity, without behavioral disturbance, psychotic disturbance, mood disturbance, and anxiety; F32.9 Major depressive disorder, single episode, unspecified; E66.01 Morbid (severe) obesity due to excess calories; F41.9 Anxiety disorder, unspecified; H40.9 Unspecified glaucoma; M19.90 Unspecified osteoarthritis, unspecified site; Z68.43 Body mass index [BMI] 50.0-59.9, adult; Z90.49 Acquired absence of other specified parts of digestive tract; Z98.51 Tubal ligation status; Z79.4 Long term (current) use of insulin; Z79.82 Long term (current) use of aspirin
CPT/HCPCS: 36415; 71045; 80053; 82550; 82962; 83615; 83880; 84484; 85025; 85379; 86140; 87804; 93005; 96365; 96375; 99285; G0378; J0456; J0696; J1100; J1650; J1815; U0003; G0379

== ENCOUNTER → 2020-08-08 | Outpatient (CLI) | payer BC ==
[2020-07-19 11:00] VITALS: BP 160/68
[~2020-08-08] MED LIST changes: +LEVO750T5 PO; +PRED20TA PO; +PREG100C PO
== END ==
LOC: LAB 09:05
PROVIDERS: ATTEND Obstetrics & Gynecology
DX: Z01.812 Encounter for preprocedural laboratory examination (principal); Z20.822 Contact with and (suspected) exposure to COVID-19
CPT/HCPCS: U0003

== ENCOUNTER 2020-08-10 07:51 | Day surgery (SDC) | payer BC ==
[~2020-08-10 07:51] MED LIST changes: +HYDROmorphone 2 MG/ML VIAL IVP PRN; +MORPHINE SULFATE 2 MG/ML VIAL. IVP PRN; -PREG100C PO; +PROCHLORPERAZINE 10 MG/2 ML VIAL. IVP PRN; +fentaNYL PF VIAL 100 MCG/2 ML VIAL IVP PRN
[2020-08-10] MEDS ORDERED: PREG100C PO (08:22)
[2020-08-10] MEDS: IV RINGERS,LACTATED 1000ML 1,000 ML IV SCH ×2 (08:28→11:47)
[2020-08-10] MEDS ORDERED: INSULIN LISPRO 100 UNIT/ML 3ML VIAL for OP,RR ONLY. SQ PRN (08:30)
[2020-08-10] MEDS ORDERED: INSULIN LISPRO 100 UNIT/ML 3ML VIAL for OP,RR ONLY. SQ ONE (09:10)
[2020-08-10] MEDS ORDERED: ONDANSETRON PF 4 MG/2 ML VIAL. ONE (09:19)
[2020-08-10] MEDS ORDERED: PROPOFOL 10 MG/ML (20ML) VIAL. IV ONE (09:19)
[2020-08-10] MEDS ORDERED: FAMOTIDINE 20 MG/2 ML VIAL ONE (09:19)
[2020-08-10] MEDS ORDERED: DEXAMETHASONE SOD PHOS 4 MG/ML VIAL ONE (09:19)
[2020-08-10] MEDS ORDERED: LIDOCAINE 2% PF 5 ML VIAL. ONE (09:19)
[2020-08-10] MEDS ORDERED: BUPIVACAINE-EPI 0.25% 30 ML VIAL KIT. ONE (10:00)
[2020-08-10] MEDS ORDERED: FERRIC SUBSULFATE 8 ML SOL.W.APPL TP ONE (10:00)
[2020-08-10] MEDS ORDERED: POTASSIUM IODIDE/IODINE 14 ML SOLUTION. TP ONE (10:56)
[2020-08-10] MEDS ORDERED: SEVOFLURANE 61 TO 120 MINUTES. IH ONE (11:07)
--- NOTE | 2020-08-10 11:25 | PDOC ---
BRIEF OPERATIVE NOTE Date: Aug 10, 2020 Pre-Op Diagnosis History of abnormal paps, +HR HPV Post-Op Diagnosis same Procedure Performed LEEP Surgeon Dr. Jorge Anesthesiologist Dr. Montes De Oca Anesthesia Type: General Blood Loss 5cc IV Fluid see anesthesia Urine Output straight cath prior to procedure Specimens Obtained ecto cervical specimen Findings just central clearing with lugols Complications none Operative Note [id number] TANYA JORGE MD Aug 10, 2020 11:25
[2020-08-10] MEDS ORDERED: MAG HYDROX/ALUMINUM HYD/SIMETH 30 ML ORAL.SUSP PO PRN (11:30)
[2020-08-10] MEDS ORDERED: CALCIUM CARBONATE 500 MG TAB.CHEW PO PRN (11:30)
[2020-08-10] MEDS ORDERED: diphenhydrAMINE HCL 25 MG CAPSULE PO PRN (11:30)
[2020-08-10] MEDS ORDERED: diphenhydrAMINE 50 MG/ML VIAL IV PRN (11:30)
[2020-08-10] MEDS ORDERED: HYDROcodone/APAP 5/325MG 1 TAB TABLET PO PRN (11:30)
[2020-08-10] MEDS ORDERED: SIMETHICONE 80 MG TAB.CHEW PO PRN (11:30)
[2020-08-10] MEDS ORDERED: 0.9 % SODIUM CHLORIDE 10 ML DISP.SYRIN. IV PRN (11:30)
[2020-08-10] MEDS ORDERED: NALOXONE 0.4 MG/ML VIAL. IV PRN (11:30)
--- NOTE | 2020-08-10 11:52 | OP ---
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 This time, she had a normal colposcopy, but a history of abnormal Paps, desiring this to be done. 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 This time, she had a normal colposcopy, but a history of abnormal Paps, desiring this to be done. PROCEDURE: Loop electrosurgical excision procedure. SURGEON: Tanya Jorge MD. DIRECTOR OF LAND ACQUISITION: OR personnel. ANESTHESIOLOGIST: Dc Montes De Oca MD. ANESTHESIA: General. ESTIMATED BLOOD LOSS: 5 mL. URINE OUTPUT: 400-500 in a straight cath prior to procedure. IV FLUIDS: Please see anesthesia. SPECIMEN: Ectocervical specimen. FINDINGS: Just peel central clearing when using the Lugol's. Otherwise, shortened, but normal cervix. COMPLICATIONS: None. DESCRIPTION OF PROCEDURE: This patient was taken to the operating room where general anesthesia was placed. The patient was placed in dorsal lithotomy position in Nehemias stirrups. The patient's vagina was prepped and draped in the normal sterile fashion. A straight cath urine was done prior to starting. Upon my arrival, a timeout was performed. Once everyone agreed on the patient, the site and the procedure, a blue laser safe speculum was placed in the patient's vagina. Lugol's was used on the cervix to delineate the abnormal area. A shallow, narrow loop was obtained. It was on 50 cut 70 coag. The cut was used to excise the specimen. Then, it was changed to a ball cautery on coagulation setting for hemostasis. She had no active bleeding. Hemostasis was readily and easily achieved with the ball cautery and there were no complications. The procedure was ended. The speculum was removed. All sponge and lap counts were correct x2 by OR personnel. The patient was awakened from anesthesia and brought to recovery room in stable condition. TANYA JORGE MD DR: DIOGO/leandro JOB#: [id number] / [id number]
[2020-08-10 14:00] VITALS: BP 123/59
--- NOTE | 2020-08-14 21:39 | PATHOLOGY ---
[facility] Accession Number: [id number] . 01 Material submitted: . cervix - ECTO CERVIX . 01 Clinical history: . ABNORMAL PAP SMEAR . 02 Diagnosis: Segments of ectocervix and uterine cervix, LEEP: - Mild chronic inflammation with focal cellular changes suggestive of HPV effect (condyloma). - Few small nabothian cysts. LBQ 08/14/2020 1042 Local . 02 Comment: There is no high grade dysplasia or evidence of malignancy. (JPM/db; 08/14/2020) . 02 Electronically signed: . Feng Duenas MD, Pathologist NPI- [id number] . 01 Gross description: . Received in formalin labeled "Alyssa, Kathleen, ectocervix" are multiple irregular, vaca pink fragments of soft tissue measuring in aggregate 2.6 x 2.2 x 1.1 cm. The 2 large unoriented identifiable portions of mucosa measuring 1.9 x 1.1 x 0.6 cm and 2.1 x 1.4 x 0.6 cm. The ectocervix is smooth, vaca-pink and glistening. The ectocervical mucosal margin is inked blue and the endocervix is inked black. The specimen is serially sectioned to reveal vaca-brown cut surface. Specimen is entirely submitted as follows: A1. Ectocervix A2. Cervix A3. Remaining fragments filtered through a mesh bag([facility]; 08/11/2020) GZA/GZA 08/11/2020 1316 Local . 02 Pathologist provided ICD-10: N72, N88.8 . 02 CPT . 054060 Specimen Comment: Report sent to Performed at: [address], [place], [place] [id number] MD Chaka Arrieta MD Phone: [phone] Performed at: [address] [id number] MD Feng Duenas MD Phone: [phone]
== END 2020-08-10 14:30 | disposition home or self-care (01) ==
LOC: SURG 07:51
PROVIDERS: ATTEND Obstetrics & Gynecology
DX: A63.0 Anogenital (venereal) warts (principal); N72 Inflammatory disease of cervix uteri; N88.8 Other specified noninflammatory disorders of cervix uteri; I25.10 Atherosclerotic heart disease of native coronary artery without angina pectoris; I10 Essential (primary) hypertension; E78.00 Pure hypercholesterolemia, unspecified; K21.9 Gastro-esophageal reflux disease without esophagitis; J45.909 Unspecified asthma, uncomplicated; E66.9 Obesity, unspecified; E03.9 Hypothyroidism, unspecified; M19.90 Unspecified osteoarthritis, unspecified site; E11.42 Type 2 diabetes mellitus with diabetic polyneuropathy; F41.9 Anxiety disorder, unspecified; F32.9 Major depressive disorder, single episode, unspecified; Z79.82 Long term (current) use of aspirin; Z79.899 Other long term (current) drug therapy; Z98.890 Other specified postprocedural states; Z88.1 Allergy status to other antibiotic agents; Z88.8 Allergy status to other drugs, medicaments and biological substances
CPT/HCPCS: 57522; 82962; 88305; J1100; J1815; J2405; J2704; J3490

== ENCOUNTER 2021-03-20 21:56 | Emergency (ER) | payer BC ==
[~2021-03-20] VITALS: Ht 152.4 cm; Wt 139.0 kg
[~2021-03-20 21:56] MED LIST changes: -HYDROmorphone 2 MG/ML VIAL IVP PRN; -MORPHINE SULFATE 2 MG/ML VIAL. IVP PRN; +PREG100C PO; -PROCHLORPERAZINE 10 MG/2 ML VIAL. IVP PRN; -fentaNYL PF VIAL 100 MCG/2 ML VIAL IVP PRN
[2021-03-21 00:33] VITALS: BP 190/76
[2021-03-21] MEDS ORDERED: TRAM-48 PO (00:48)
--- NOTE | 2021-03-21 00:51 | PHYS DOC ---
Past Medical History Past Medical History: Asthma, Bipolar, Diabetes-Type II, Glaucoma, High C holesterol, Hypertension, Other Additional Past Medical Histor: GASTROPARESIS, SLEEP APNEA, GLAUCOMA Past Surgical History: Cholecystectomy, Tonsillectomy, Tubal ligation, Other Additional Past Surgical Histo: CRYO SURG,D&C,THERMOABLATION, CARDIAC CATH Smoking Status: Never Smoker Alcohol Use: None Drug Use: None General Adult EDM: Chief Complaint: MECHANICAL FALL HPI: HPI: Patient is a 55 year old female presents for evaluation after mechanical fall. Patient states she twisted her ankle and fell to the ground. Patient complains of right heel pain and right hand and wrist pain. On exam I do not see any deformity of patient's upper or lower extremities. Patient does have an abrasion over her right palmar surface. Patient has full range of motion of her left foot and ankle. Patient does have abrasion over her left knee but has full range of motion of left knee with no complaints of pain. Patient denies any other injuries. Review of Systems: Review of Systems: Review of systems: Constitutional symptoms- No fever, no chills. Eyes- No Discharge, No Visual Loss Respiratory symptoms- No shortness of breath, No wheezing, No Dyspnea on Exertion Cardiovascular Systems; No chest pain, No Palpitations, No syncope Gastrointestinal symptoms: NO abdominal pain, no nausea, no vomiting or diarrhea. Genitourinary symptoms: No dysuria. Musculoskeletal symptoms: No back pain Positive extremity pain. NEUROLOGICAL Symptoms: No headache, no generalized weakness; No focal Weakness Skin: No rash. Positive abrasion Heart Score: C/O Chest Pain: N/A Risk Factors: Risk Factors: DM, Current or recent (<one month) smoker, HTN, HLP, family history of CAD, obesity. Risk Scores: Score 0 - 3: 2.5% MACE over next 6 weeks - Discharge Home Score 4 - 6: 20.3% MACE over next 6 weeks - Admit for Clinical Observation Score 7 - 10: 72.7% MACE over next 6 weeks - Early Invasive Strategies Allergies: Allergies: Allergies Coded Allergies Type Severity Reaction Last Updated Verified insulin aspart Allergy Intermediate 08/10/20 Yes insulin aspart protamine human Allergy Intermediate Itching 08/10/20 Yes lithium Allergy Intermediate 08/10/20 Yes erythromycin base Adverse Reaction Intermediate STOMACH UPSET 08/10/20 Yes Physical Exam: PE: Constitutional: Well developed, well nourished, no acute distress, non-toxic appearance. [] HENT: Normocephalic, atraumatic, bilateral external ears normal, oropharynx moist, no oral exudates, nose normal. [] Eyes: PERRLA, EOMI, conjunctiva normal, no discharge. [] Neck: Normal range of motion, no tenderness, supple, no stridor. [] Cardiovascular:Heart rate regular rhythm, no murmur [] Lungs & Thorax: Bilateral breath sounds clear to auscultation [] Abdomen: Bowel sounds normal, soft, no tenderness, no masses, no pulsatile masses. [] Skin: Warm, dry, no erythema, no rash. [] Abrasion over left knee no active bleeding Back: No tenderness, no CVA tenderness. [] Extremities: No tenderness, no cyanosis, no clubbing, ROM intact, no edema. [Tenderness to palpation heel and arch of right, no deformities noted of right left lower extremity patient with full range of motion of right ankle right lower extremity is neurovascularly intact] pain along the hyperthenar thenar eminence of right hand. There is abrasion over this area no active bleeding patient has full range of motion of hand and wrist do not see any deformities Neurologic: Alert and oriented X 3, normal motor function, normal sensory function, no focal deficits noted. [] Psychologic: Affect normal, judgement normal, mood normal. [] EKG: EKG: [] Radiology/Procedures: Radiology/Procedures: [] Impression: Wet read x-ray no acute fractures or dislocation Course & Med Decision Making: Course & Med Decision Making Pertinent Labs and Imaging studies reviewed. (See chart for details) [] Dragon Disclaimer: Dragon Disclaimer: This electronic medical record was generated, in whole or in part, using a voice recognition dictation system. Departure Departure Impression: Primary Impression: Fall Additional Impressions: Hand pain Foot pain Disposition: HOME / SELF CARE / HOMELESS Condition: STABLE Referrals: ELEAZAR LEO MD (PCP) Patient Instructions: Fall Prevention and Home Safety, Foot Sprain, Hand Injuries Scripts Tramadol Hcl (ULTRAM) 50 Mg Tablet 1 TAB PO PRN Q6HRS PRN for pain MDD 4 Tablet(s) for 7 Days, #28 TAB 0 Refills Prov: JENNA KIM I DO 03/21/21 JENNA KIM DO Mar 21, 2021 00:51
--- NOTE | 2021-03-21 04:21 | RAD ---
EXAM: 1. RIGHT ANKLE 3 VIEWS. 2. RIGHT FOOT 3 VIEWS. HISTORY: Foot and ankle pain. COMPARISON: 09/26/2019. FINDINGS: There are changes of internal fixation of chronic healed lateral and medial malleolar fractures. The alignment of the mortise is maintained. Joint spaces are maintained. There is soft tissue swelling me dially and laterally. No fractures are identified in the foot. Alignment is normal. Joint spaces are maintained. There is a small plantar calcaneal spur. IMPRESSION: 1. Soft tissue swelling. No acute fracture. Electronically signed by: Linnea Fontaine MD (03/21/2021 4:19 AM) [facility]
--- NOTE | 2021-03-21 04:23 | RAD ---
EXAM: 1. RIGHT HAND 3 VIEWS. 2. RIGHT WRIST 3 VIEWS. HISTORY: Pain. COMPARISON: None. FINDINGS: No fractures are identified in the wrist. Alignment is maintained. Joint spaces are maintai misael. There is a chronic healed fracture of the fifth metacarpal. There is no acute fracture. Negative ulna r variance is noted. There is minimal osteoarthritis at the first through third distal interphalangea l joints, and the second metacarpophalangeal joint. IMPRESSION: 1. Mild degenerative changes as above. No cause for acute pain is identified. Electronically signed by: Linnea Fontaine MD (03/21/2021 4:21 AM) [facility]
== END 2021-03-21 01:29 | disposition home or self-care (01) ==
LOC: ER 21:56
DX: M79.641 Pain in right hand (principal); G89.11 Acute pain due to trauma; M25.531 Pain in right wrist; M79.671 Pain in right foot; J45.909 Unspecified asthma, uncomplicated; F31.9 Bipolar disorder, unspecified; E11.39 Type 2 diabetes mellitus with other diabetic ophthalmic complication; H40.9 Unspecified glaucoma; E78.00 Pure hypercholesterolemia, unspecified; I10 Essential (primary) hypertension; Z88.1 Allergy status to other antibiotic agents; Z88.8 Allergy status to other drugs, medicaments and biological substances; W18.39XA Other fall on same level, initial encounter; Y93.89 Activity, other specified; Y92.89 Other specified places as the place of occurrence of the external cause; Y99.8 Other external cause status
CPT/HCPCS: 73110; 73130; 73610; 73630; 99284

== ENCOUNTER 2021-09-19 17:33 | Emergency (ER) | payer BC ==
[~2021-09-19] VITALS: Ht 152.4 cm; Wt 127.6 kg
[~2021-09-19 17:33] MED LIST changes: +TRAM-48 PO
[2021-09-19 18:29] LABS: BASO # 0.1 x10^3/uL (0.0-0.2); BASO % 1 % (0-3); EOS # 0.2 x10^3/uL (0.0-0.7); EOS % 2 % (0-3); HEMATOCRIT 35.6 % (36.0-47.0); HEMOGLOBIN 11.6 g/dL (12.0-15.5); LYMPH # 3.6 x10^3/uL (1.0-4.8); LYMPH % 34 % (24-48); MEAN CORPUSCULAR HEMOGLOBIN 29 pg (25-35); MEAN CORPUSCULAR HGB CONC 33 g/dL (31-37); MEAN CORPUSCULAR VOLUME 89 fL (79-100); MONO # 0.5 x10^3/uL (0.0-1.1); MONO % 5 % (0-9); NEUT % 57 % (31-73); PLATELET COUNT 375 x10^3/uL (140-400); RED BLOOD COUNT 4.01 x10^6/uL (3.50-5.40); RED CELL DISTRIBUTION WIDTH 14.6 % (11.5-14.5); WHITE BLOOD COUNT 10.6 x10^3/uL (4.0-11.0)
[2021-09-19 18:54] LABS: BACTERIA,URINE 0 /HPF (0-FEW); RBC,URINE 0 /HPF (0-2)
[2021-09-19 19:50] LABS: CALCIUM 9.6 mg/dL (8.5-10.1); CREATININE 0.9 mg/dL (0.6-1.0); POTASSIUM 3.9 mmol/L (3.5-5.1)
[2021-09-19 19:55] LABS: ALBUMIN 3.6 g/dL (3.4-5.0); ALBUMIN/GLOBULIN RATIO 0.9 (1.0-1.7); MAGNESIUM 2.1 mg/dL (1.8-2.4); TOTAL BILIRUBIN 0.2 mg/dL (0.2-1.0); TOTAL PROTEIN 7.5 g/dL (6.4-8.2)
[2021-09-19 20:00] VITALS: BP 177/76
--- NOTE | 2021-09-19 20:08 | RAD ---
XR CHEST 1V Clinical History: Reason: Chest palpitations / Spl. Instructions: / History: Technique: AP view of the chest was obtained at 09/19/2021 6:35 PM. Comparison: July 18, 2020. Findings: The cardiomediastinal silhouette is normal. The pulmonary vasculature is normal. There is linear opac ities in the lung bases. Impression: Mild basal infiltrate likely discoid atelectasis. Electronically signed by: Shorty Garcia III, MD (09/19/2021 8:05 PM) [facility]
--- NOTE | 2021-09-19 20:46 | PHYS DOC ---
Past Medical History Past Medical History: Asthma, Bipolar, Diabetes-Type II, Glaucoma, High Cholesterol, Hypertension, Other Additional Past Medical Histor: GASTROPARESIS, SLEEP APNEA, GLAUCOMA (KEERTHI SANTOS APRN) Past Surgical History: Other Additional Past Surgical Histo: ankle (KEERTHI SANTOS APRN) Smoking Status: Never Smoker Alcohol Use: None Drug Use: None (KEERTHI SANTOS APRN) General Adult EDM: Chief Complaint: Palpitations HPI: HPI: Patient is a 55-year-old female presents to the emergency department complaining of increasing heart palpitations over the past 2 weeks. Patient reports she did experience heart palpitations intermittently for "quite some time "but now feels that she has an episode about every day that lasts approximately 10 seconds. Patient describes her heart palpitations as her chest is pounding. Patient denies syncope or near syncopal episodes, denies diaphoresis, chest pain or radiation of any aches or pains. Patient denies cough, chest or nasal congestion. Patient does complain of ringing to the right ear for the past month or so. Patient states she can sometimes hear and see her heartbeat. Patient states she did become nauseated today but has resolved since arriving to the ER. Patient states she does have intermittent headaches with denies head ache at this time. Patient reports her primary care is with Dr. Gwendolyn Romero at [facility]. Patient reports her home medications as pantoprazole, baby aspirin, atorvastatin, losartan, Actos, hydrochlorothiazide. Patient states she does take insulin with an insulin sliding scale. Patient denies other physical complaints or physical concerns. (KEERTHI SANTOS APRN) Review of Systems: Review of Systems: 14 body systems of review of systems have been reviewed. See HPI for pertinent positives and negative responses, otherwise all other systems are negative, nonpertinent or noncontributory. Constitutional: Negative except as outlined in HPI above. Skin: Negative except as outlined in HPI above. Eyes: Negative except as outlined in HPI above. HENT: Negative except as outlined in HPI above. Respiratory: Negative except as outlined in HPI above. Cardiovascular: Negative except as outlined in HPI above. GI: Negative except as outlined in HPI above. : Negative except as outlined in HPI above. Musculoskeletal: Negative except as outlined in HPI above. Integument: Negative except as outlined in HPI above. Neurologic: Negative except as outlined in HPI above. Endocrine: Negative except as outlined in HPI above. Lymphatic: Negative except as outlined in HPI above. Psychiatric: Negative except as outlined in HPI above. (KEERTHI SANTOS APRN) Heart Score: C/O Chest Pain: No Risk Factors: Risk Factors: DM, Current or recent (<one month) smoker, HTN, HLP, family history of CAD, obesity. Risk Scores: Score 0 - 3: 2.5% MACE over next 6 weeks - Discharge Home Score 4 - 6: 20.3% MACE over next 6 weeks - Admit for Clinical Observation Score 7 - 10: 72.7% MACE over next 6 weeks - Early Invasive Strategies (KEERTHI SANTOS APRN) Allergies: Allergies: Allergies Coded Allergies Type Severity Reaction Last Updated Verified insulin aspart Allergy Intermediate 09/19/21 Yes insulin aspart protamine human Allergy Intermediate Itching 09/19/21 Yes lithium Allergy Intermediate 09/19/21 Yes erythromycin base Adverse Reaction Intermediate STOMACH UPSET 09/19/21 Yes (KEERTHI SANTOS APRN) Physical Exam: PE: Constitutional: Well developed, well nourished, no acute distress, non-toxic appearance. 55-year-old female in no apparent distress. HENT: Normocephalic, atraumatic. Oropharynx moist, pink, no deep tissue infection process appreciated, left TM intact and within normal limit, right TM unable to visualize related to wax impaction. No lymphadenopathy of the head or neck appreciated. Eyes: Conjunctiva normal, no discharge. Neck: Normal range of motion, no stridor. Cardiovascular: No cyanosis appreciated, distal cap refill less than 2 seconds. Regular rate and rhythm, heart sounds S1-S2 auscultation. Lungs & Thorax: Patient is in no respiratory distress, no audible adventitious lung sounds appreciated. Lung sounds clear to auscultation all lung ramirez, n ormal work of breathing. Abdomen: Nontender, no abnormalities noted. Patient is morbidly obese, BMI 54.9 Skin: Warm, dry, no erythema, no rash. Back: No tenderness, no deformities. Extremities: No tenderness, no cyanosis, no clubbing, ROM intact, no edema. Neurologic: Alert and oriented X 3, normal motor function, normal sensory function, no focal deficits noted. Psychologic: Affect normal, judgement normal, mood normal. (KEERTHI SANTOS APRN) Current Patient Data: Labs: Laboratory Tests Test 09/19/21 17:50 09/19/21 18:06 09/19/21 18:47 09/19/21 19:28 Urine Collection Type Unknown Urine Color (Auto) Colorless Urine Turbidity Clear Urine pH (Auto) 7.0 (<5.0-8.0) Urine Specific [place] 1.013 (1.000-1.030) Urine Protein (Auto) Negative mg/dL (Negative) Urine Glucose (Auto)(UA) Negative mg/dL (Negative) Urine Ketones (Auto) Negative mg/dL (Negative) Urine Blood (Auto) Negative (Negative) Urine Nitrite Negative (Negative) Urine Bilirubin (Auto) Negative (Negative) Urine Urobilinogen (Auto) Normal mg/dL (Normal) Urine Leukocyte Esterase (Auto) Negative (Negative) Urine RBC 0 /HPF (0-2) Urine WBC 1-4 /HPF (0-4) Urine Squamous Epithelial Cells Mod /LPF Urine Transitional Epithelial Cells Occ /LPF Urine Renal Epithelial Cells Occ /LPF Urine Bacteria 0 /HPF (0-FEW) White Blood Count 10.6 x10^3/uL (4.0-11.0) Red Blood Count 4.01 x10^6/uL (3.50-5.40) Hemoglobin 11.6 g/dL (12.0-15.5) L Hematocrit 35.6 % (36.0-47.0) L Mean Corpuscular Volume 89 fL (79-100) Mean Corpuscular Hemoglobin 29 pg (25-35) Mean Corpuscular Hemoglobin Concent 33 g/dL (31-37) Red Cell Distribution Width 14.6 % (11.5-14.5) H Platelet Count 375 x10^3/uL (140-400) Neutrophils (%) (Auto) 57 % (31-73) Lymphocytes (%) (Auto) 34 % (24-48) Monocytes (%) (Auto) 5 % (0-9) Eosinophils (%) (Auto) 2 % (0-3) Basophils (%) (Auto) 1 % (0-3) Neutrophils # (Auto) 6.0 x10^3/uL (1.8-7.7) Lymphocytes # (Auto) 3.6 x10^3/uL (1.0-4.8) Monocytes # (Auto) 0.5 x10^3/uL (0.0-1.1) Eosinophils # (Auto) 0.2 x10^3/uL (0.0-0.7) Basophils # (Auto) 0.1 x10^3/uL (0.0-0.2) Sodium Level 146 mmol/L (136-145) H Potassium Level 3.9 mmol/L (3.5-5.1) Chloride Level 104 mmol/L (98-107) Carbon Dioxide Level 32 mmol/L (21-32) Anion Gap 10 (6-14) Blood Urea Nitrogen 14 mg/dL (7-20) Creatinine 0.9 mg/dL (0.6-1.0) Estimated GFR (Cockcroft-Gault) 65.0 BUN/Creatinine Ratio 16 (6-20) Glucose Level 64 mg/dL (70-99) L Calcium Level 9.6 mg/dL (8.5-10.1) Magnesium Level 2.1 mg/dL (1.8-2.4) Total Bilirubin 0.2 mg/dL (0.2-1.0) Aspartate Amino Transferase (AST) 21 U/L (15-37) Alanine Aminotransferase (ALT) 30 U/L (14-59) Alkaline Phosphatase 109 U/L (46-116) Troponin I High Sensitivity 10 ng/L (4-50) Total Protein 7.5 g/dL (6.4-8.2) Albumin 3.6 g/dL (3.4-5.0) Albumin/Globulin Ratio 0.9 (1.0-1.7) L Glucose (Fingerstick) 65 mg/dL (70-99) L Laboratory Tests 09/19/21 18:06 Laboratory Tests 09/19/21 18:47 Vital Signs: Vital Signs Date Time Temp Pulse Resp B/P (MAP) Pulse Ox O2 Delivery O2 Flow Rate FiO2 09/19/21 19:00 70 18 189/77 (114) 98 Room Air 09/19/21 17:36 97.6 97.6 (KEERTHI SANTOS APRN) EKG: EKG: EKG performed at 1741 by ED nursing staff shows a normal sinus rhythm with an occasional PAC, heart rate 71 bpm, IL interval 0.142, QTc interval 0.411, no acute STEMI, no ACS, no acute ischemia appreciated, EKG interpreted by ED attending physician Dr. Geronimo. (KEERTHI SANTOS APRN) Radiology/Procedures: Radiology/Procedures: REASON: Chest palpitations PROCEDURE: CHEST AP ONLY XR CHEST 1V Clinical History: Reason: Chest palpitations / Spl. Instructions: / History: Technique: AP view of the chest was obtained at 09/19/2021 6:35 PM. Comparison: July 18, 2020. Findings: The cardiomediastinal silhouette is normal. The pulmonary vasculature is normal. There is linear opacities in the lung bases. Impression: Mild basal infiltrate likely discoid atelectasis. Electronically signed by: Shorty Garcia III, MD (09/19/2021 8:05 PM) [facility] (KEERTHI SANTOS APRN) Course & Med Decision Making: Course & Med Decision Making Pertinent Labs and Imaging studies reviewed. (See chart for details) 55-year-old female, vital signs reviewed, presents emergency department concerning intermittent heart palpitations at home. Patient's physical examination is unremarkable for acute cardiac process, patient does have earwax impaction of the right, will order CBC, CMP, EKG, troponin I, magnesium, cardiac monitoring, pulse ox monitoring, chest x-ray, blood pressure monitoring, saline lock. Irrigate right external auditory canal and reevaluate right TM. Patient EKG unremarkable, troponin I and other serum labs are unremarkable, patient's chest x-ray is nonconcerning, after irrigation of right external auditory canal, reevaluation finds right TM within normal limits and intact, patient reports her ear ringing has resolved and she feels much better now, patient denies any return of heart palpitations during her ER stay. Discussed with patient all lab values, strict follow-up with primary care call tomorrow for the soonest appointment, will give recommendation for animal behaviorist for co nsideration of Holter monitor and ongoing investigation of heart palpitations. Reviewed strict return to ER precautions and concerns, patient gave verbal understanding of and is amenable to ED discharge planning. Discussed with the patient all findings and diagnostic testing as well as the need to follow-up with their primary care provider for further evaluation and treatment or return to the ED if any new or worsening symptoms. Strict return precautions were also discussed at length, the patient voiced understanding and agreement with the discharge planning. The patient was nontoxic in appearance, in no apparent distress, and hemodynamically stable at the time of disposition. (KEERTHI SANTOS APRN) Course & Med Decision Making Patients Care and treatment plan provided by ER Nurse Practitioner. I was available for consult. Patient's chart reviewed. (JENNA GERONIMO I DO) Dragon Disclaimer: Dragon Disclaimer: This electronic medical record was generated, in whole or in part, using a voice recognition dictation system. (KEERTHI SANTOS APRN) Departure Departure Impression: Primary Impression: Heart palpitations Disposition: HOME / SELF CARE / HOMELESS Condition: GOOD Referrals: NON,STAFF (PCP) JOO CLEVELAND MD Patient Instructions: Palpitations Additional Instructions: You were seen today in the emergency department and evaluated for heart palpitations. You also had ringing of the right ear, it was found that you did have an earwax impaction of the right and this was cleaned through irrigation of water to the right ear, your tympanic membrane of your right ear is within normal limits, your ear ringing resolved, he did not have any return of heart palpitations during your ER stay. Your lab work and chest x-ray did not show any concerning findings. Your EKG is reassuring that you are not suffering from an acute myocardial infarction. However I did disclose that you may need further follow-up for your heart palpitation symptoms such as being evaluated by a audit specialist who may consider placing a Holter monitor or heart monitor to evaluate your specific palpitation complaints. It is very important that you follow-up with Dr. Gwendolyn Romero, please call tomorrow for the soonest appointment and discuss your ER visit today, consult with Dr. Romero regarding a audit specialist and follow Dr. Romero's recommendations. Please continue all home medications, please return to the emergency department immediately for return of palpitations that do not go away, chest pains, shortness of breath, or other concerns. Thank you for visiting our Emergency Department. It was a pleasure taking care of you today in the emergency department and we appreciate you trusting us with your care. If any additional problems come up don't hesitate to return to visit us. Please follow up with your primary care provider so they can plan additional care if needed and know about the problem that you had. If symptoms worsen come back to the Emergency Department. Any concerning symptoms that start such as chest pain, shortness of air, weakness or numbness on one side of the body, running high fevers or any other concerning symptoms return to the ER. KEERTHI SANTOS APRN Sep 19, 2021 20:45 JENNA GERONIMO DO Sep 20, 2021 03:58
--- NOTE | 2021-09-20 07:58 | EKG ---
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
== END 2021-09-19 20:56 | disposition home or self-care (01) ==
LOC: ER 17:33
DX: R00.2 Palpitations (principal); R11.0 Nausea; R51.9 Headache, unspecified; J45.909 Unspecified asthma, uncomplicated; F31.9 Bipolar disorder, unspecified; E11.39 Type 2 diabetes mellitus with other diabetic ophthalmic complication; H42 Glaucoma in diseases classified elsewhere; E78.00 Pure hypercholesterolemia, unspecified; I10 Essential (primary) hypertension; Z88.8 Allergy status to other drugs, medicaments and biological substances; Z88.1 Allergy status to other antibiotic agents
CPT/HCPCS: 36415; 71045; 80053; 81001; 82962; 83735; 84484; 85025; 93005; 99285